=== PATIENT | male | born 1960 | race Caucasian/White ===

== ENCOUNTER 2018-02-04 18:36 | Inpatient (IN) | payer MEDICARE ==
--- NOTE | 2018-02-04 18:45 | ED Physician Chart ---
ED Chief Complaint/HPI - Patient Information Date Seen:: 02/04/18 Time Seen:: 18:44 Chief Complaint:: Agitation and aggressiveness History of Present Illness:: 57 yo male was brought from SNF to ER for evaluation of increased agitation and aggressive behavior. Patient stated that: "I heard Carlos A is good here." Allergies:: Allergies Allergy/AdvReac Type Severity Reaction Status Date / Time lisinopril Allergy Verified 02/04/18 18:41 ED Review of Systems - Review of Systems General/Constitutional: No fever Skin: No skin lesions Head: No headache Eyes: No pain ENT: No nasal drainage Neck: No neck pain Cardio Vascular: No chest pain Pulmonary: No SOB GI: No nausea, No vomiting Musculoskeletal: No bone or joint pain Psychiatric: Prior psych history Neurological: No syncope ED Past Medical History - Past Medical History Past Medical History: DM Social History: Non Smoker, No Alcohol, No Drug Use Psychiatricy History: Other (Psychosis) Family Medical History - Family Member Mother History Unknown: Yes Ethnicity: Unknown Living Status: Unknown Hx Family Cancer: No Hx Family Coronary Artery Disease: No Hx Family Congestive Heart Failure: No Hx Family Hypertension: No Hx Family Stroke: No Hx Family Diabetes: No Hx Family Seizures: No Hx Family Dementia: No Hx Family AIDS: No Hx Family HIV: No Hx Family COPD: No Hx Family Hepatitis: No Hx Family Psychiatric Problems: No Hx Family Tuberculosis: No ED Physical Exam - Physical Examination General/Constitutional: Awake Head: Atraumatic Eyes: PERRL Skin: No skin lesions ENMT: Nasal exam nl Neck: No nuchal rigidity Respiratory: Clear to Auscultation, No Wheeze/Rhonchi/Rales Cardio Vascular: RRR, No murmur, gallop, rubs, NL S1 S2 GI: No tenderness/rebounding/guarding Extremities: normal strength in all extremities Other Neuro/Psych comments:: oriented to self and place ED Labs/Radiology/EKG Results - Lab Results Results: Laboratory Last Values WBC 7.9 Th/cmm (4.8-10.8) 02/04/18 19:02 RBC 4.48 Mil/cmm (4.30-5.70) 02/04/18 19:02 Hgb 13.6 gm/dL (12-16) 02/04/18 19:02 Hct 40.2 % (41.0-60) L 02/04/18 19: MCV 89.7 fl (80-99) 02/04/18 19: MCH 30.2 pg (26.0-30.0) H 02/04/18 19: MCHC Differential 33.7 pg (28.0-36.0) 02/04/18 19: RDW 12.8 % (11.5-20.0) 02/04/18: Plt Count 343 Th/cmm (150-400) 02/04/18 19: MPV 7.2 fl 02/04/18 19: Neutrophils % 49.2 % (40.0-80.0) 02/04/18: Lymphocytes % 40.5 % (20.0-50.0) 02/04/18: Monocytes % 8.0 % (2.0-10.0) 02/04/18: Eosinophils % 1.5 % (0.0-5.0) 02/04/18: Basophils % 0.8 % (0.0-2.0) 02/04/18 19: PT 10.0 SECONDS (9.5-11.5) 02/04/18 19: INR 0.96 (0.5-1.4) 02/04/18 19: PTT (Actin FS) 23.1 SECONDS (26.0-38.0) L 02/04/18 19: Sodium 135 mEq/L (136-145) L 02/04/18 19: Potassium 4.4 mEq/L (3.5-5.1) 02/04/18: Chloride 99 mEq/L (98-107) 02/04/18 19: Carbon Dioxide 29.8 mEq/L (21.0-31.0) 02/04/18 19: Anion Gap 10.6 (7.0-16.0) 02/04/18 19: BUN 18 mg/dL (7-25) 02/04/18 19: Creatinine 0.9 mg/dL (0.7-1.3) 02/04/18 19: Est GFR ( Amer) > 60.0 ml/min (>90) 02/04/18: Est GFR (Non-Af Amer) > 60.0 ml/min 02/04/18 19:02 BUN/Creatinine Ratio 20.0 02/04/18 19:02 Glucose 294 mg/dL (70-105) H 02/04/18 19:02 Calcium 9.6 mg/dL (8.6-10.3) 02/04/18 19:02 Magnesium 1.7 mg/dL (1.9-2.7) L 02/04/18 19:02 Total Bilirubin 0.4 mg/dL (0.3-1.0) 02/04/18 19:02 AST 9 U/L (13-39) L 02/04/18 19:02 ALT 10 U/L (7-52) 02/04/18 19:02 Alkaline Phosphatase 61 U/L (34-104) 02/04/18 19:02 Troponin I < 0.01 ng/mL (0.01-0.05) L 02/04/18 19:02 B-Natriuretic Peptide < 5.0 pg/mL (5.0-100.0) L 02/04/18 19:02 Total Protein 6.8 gm/dL (6.0-8.3) 02/04/18 19:02 Albumin 4.4 gm/dL (4.2-5.5) 02/04/18 19:02 Globulin 2.4 gm/dL 02/04/18 19:02 Albumin/Globulin Ratio 1.8 (1.0-1.8) 02/04/18 19:02 Urine Source RANDOM 02/05/18 00:00 Urine Color YELLOW 02/05/18 00:00 Urine Clarity CLEAR (CLEAR) 02/05/18 00:00 Urine pH 5.5 (4.6 - 8.0) 02/05/18 00:00 Ur Specific [place] 1.020 (1.005-1.030) 02/05/18 00:00 Urine Protein TRACE mg/dL (NEGATIVE) 02/05/18 00:00 Urine Glucose (UA) >=1000 mg/dL (NEGATIVE) H 02/05/18 00:00 Urine Ketones NEGATIVE mg/dL (NEGATIVE) 02/05/18 00:00 Urine Blood NEGATIVE (NEGATIVE) 02/05/18 00:00 Urine Nitrate NEGATIVE (NEGATIVE) 02/05/18 00:00 Urine Bilirubin NEGATIVE (NEGATIVE) 02/05/18 00:00 Urine Urobilinogen 0.2 E.U./dL (0.2 - 1.0) 02/05/18 00:00 Ur Leukocyte Esterase NEGATIVE (NEGATIVE) 02/05/18 00:00 Urine RBC NONE SEEN /hpf (0-5) 02/05/18 00:00 Urine WBC NONE SEEN /hpf (0-5) 02/05/18 00:00 Ur Epithelial Cells NONE SEEN /lpf (FEW) 02/05/18 00:00 Urine Bacteria NONE SEEN /hpf (NONE SEEN) 02/05/18 00:00 - Radiology Results Results: CXR: chronic lung changes without focal consolidation - EKG Interpretations EKG Time:: 19:08 Rate & Rhythm: 85 bpm sinus rhythm [place]: normal Intervals: normal ED Assessment - Assessment General Assessment: DM II Hyponatremia Psychosis Assessment/Comments:: CBC, CMP, Trop I, BNP, UA CXR, EKG Admit to [facility] Septic Shock - . Is Septic Shock (SBP<90, OR Lactate>4 mmol\\L) present?: No ED Reassessment (Disposition) - Reassessment Reassessment Condition:: Unchanged - Patient Disposition Discharge/Transfer:: [facility] w/in this hosp Admitting Medical Physician:: Josey Dunbar Admitting Psych Physician:: Emre Brar ED Discharge Plan - Patient Disposition Admit/Discharge/Transfer: Other Care w/in this hosp
[2018-02-04 19:15] LABS: % BASOPHILS 0.8 % (0.0-2.0); % EOSINOPHILS 1.5 % (0.0-5.0); % LYMPHOCYTES 40.5 % (20.0-50.0); % NEUTROPHILS 49.2 % (40.0-80.0); BASOPHILE ABSOLUTE 0.1 Th/cumm (0-0.2); EOSINOPHILE ABSOLUTE 0.1 Th/cmm (0.1-0.4); HEMATOCRIT 40.2 % (41.0-60); HEMOGLOBIN 13.6 gm/dL (12-16); LYMPHOCYTE ABSOLUTE 3.2 Th/cmm (1.5-3.0); MEAN CELL VOLUME 89.7 fl (80-99); MEAN CORPUSCULAR HEMOGLOBIN 30.2 pg (26.0-30.0); MEAN CORPUSCULAR HGB CONC 33.7 pg (28.0-36.0); MEAN PLATELET VOLUME 7.2 fl; MONOCYTE ABSOLUTE 0.6 Th/cmm (0.3-1.0); NEUTROPHILE ABSOLUTE 3.9 Th/cmm (1.8-8.0); PLATELET COUNT 343 Th/cmm (150-400); RED BLOOD COUNT 4.48 Mil/cmm (4.30-5.70); RED CELL DISTRIBUTION WIDTH 12.8 % (11.5-20.0); WHITE BLOOD COUNT 7.9 Th/cmm (4.8-10.8)
[2018-02-04 19:23] LABS: INR 0.96 (0.5-1.4)
[2018-02-04 19:25] LABS: ALB/GLOB RATIO 1.8 (1.0-1.8); ALBUMIN 4.4 gm/dL (4.2-5.5); ALKALINE PHOSPHATASE 61 U/L (34-104); ANION GAP 10.6 (7.0-16.0); BILIRUBIN,TOTAL 0.4 mg/dL (0.3-1.0); BUN - UREA NITROGEN 18 mg/dL (7-25); CALCIUM SERUM 9.6 mg/dL (8.6-10.3); CARBON DIOXIDE 29.8 mEq/L (21.0-31.0); CHLORIDE 99 mEq/L (98-107); CREATININE - SERUM 0.9 mg/dL (0.7-1.3); GFR AFRICAN-AMERICAN > 60.0 ml/min (>90); GFR NON AFRICAN-AMERICAN > 60.0 ml/min; GLUCOSE 294 mg/dL (70-105); MAGNESIUM 1.7 mg/dL (1.9-2.7); POTASSIUM SERUM 4.4 mEq/L (3.5-5.1); SGOT 9 U/L (13-39); SGPT/ALT 10 U/L (7-52); SODIUM SERUM 135 mEq/L (136-145); TOTAL PROTEIN,SERUM 6.8 gm/dL (6.0-8.3)
[2018-02-05 00:25] VITALS: BP 128/77
[2018-02-05 00:55] LABS: URINE MICROSCOPIC INDICATED? YES; URINE SOURCE RANDOM
[2018-02-05 00:57] LABS: URINE BILIRUBIN NEGATIVE (NEGATIVE); URINE BLOOD NEGATIVE (NEGATIVE); URINE GLUCOSE (UA) >=1000 mg/dL (NEGATIVE); URINE KETONE NEGATIVE (NEGATIVE); URINE LEUKOCYTE ESTERASE NEGATIVE (NEGATIVE); URINE NITRATE NEGATIVE (NEGATIVE); URINE PH 5.5 (4.6 - 8.0); URINE PROTEIN TRACE mg/dL (NEGATIVE); URINE UROBILINOGEN 0.2 E.U./dL (0.2 - 1.0)
[2018-02-05 00:58] LABS: URINE BACTERIA NONE SEEN /hpf (NONE SEEN); URINE CLARITY CLEAR (CLEAR); URINE COLOR YELLOW; URINE EPITHELIAL CELLS NONE SEEN /lpf (FEW); URINE RBC NONE SEEN /hpf (0-5); URINE WBC NONE SEEN /hpf (0-5)
[2018-02-05] MEDS ORDERED: Dextrose 50% 50 mL Abboject IVP PRN (05:09)
[2018-02-05] MEDS: INSULIN ASPART SLIDING SCALE 100 UNITS/ML UNIT SUBQ SCH ×4 (06:42→21:19)
--- NOTE | 2018-02-05 09:13 | Diagnostic Imaging Report ---
CHEST X-RAY: AP view INDICATION: Shortness of breath COMPARISON: None FINDINGS: Chronic lung changes are noted. Faint left basal density is noted measuring 7 mm. This is adjacent to the eighth posterior rib. No focal consolidation or effusion. Heart size is normal. Degenerative changes of the spine are noted. IMPRESSION: Chronic lung changes with no focal consolidation identified. Faint 7 mm left basal density. This is indeterminate. Faint infiltrate or a pulmonary nodule cannot be excluded. Correlation with old exams would be helpful for comparison. Alternatively, follow CT chest is recommended.
[2018-02-05] MEDS: Aspirin 81mg Chewable Tab PO SCH (09:41)
[2018-02-05] MEDS: Multivitamin w/ Minerals Tab PO SCH (09:42)
--- NOTE | 2018-02-05 14:47 | History & Physical ---
ADMIT DATE: 02/05/2018 CHIEF COMPLAINT: Agitation and aggressive behavior. HISTORY OF PRESENT ILLNESS: This is a 57-year-old male who was admitted from a [facility] facility and was transferred to [facility] due to increase in agitation and aggressive behavior. REVIEW OF SYSTEMS: GENERAL: This is a 57-year-old male that appears as stated, no fever, no chills. HEENT: No headache. No dizziness. EYES: No eye pain, no blurring of vision. NECK: No neck pain, no nuchal rigidity. CHEST: No chest pain. No palpitation. PULMONARY: No coughing. No shortness of breath. GASTROINTESTINAL: No diarrhea, no obstipation, no abdominal pain. MUSCULOSKELETAL: No muscle pain, no joint pain. SOCIAL HISTORY: The patient lives in a [facility] facility prior to hospitalization. PAST SURGICAL HISTORY: Unremarkable. FAMILY HISTORY: Unremarkable. PAST MEDICAL HISTORY: Includes diabetes, vitamin D deficiency, hyperlipidemia. PHYSICAL EXAMINATION: VITAL SIGNS: Temperature 97, heart rate of 89, blood pressure 146/86, respirations 17, 97% on room air. HEENT: Head is atraumatic, normocephalic. Eyes: Bilateral conjunctivae are clear. Bilateral pupils are equally round and reactive. NECK: Supple. No JVD. CARDIOVASCULAR: S1 and S2 without murmur. PULMONARY: Clear to auscultation. GASTROINTESTINAL: Soft and nontender without guarding. Positive bowel sounds. MUSCULOSKELETAL: No clubbing. No cyanosis noted. Radiology report showed a 7 mm left basal density, otherwise no focal consolidation or no changes noted. ASSESSMENT: 1. Psychosis. 2. Diabetes. 3. Vitamin D deficiency. 4. Osteoarthritis. PLAN: We will admit the [facility]. We will follow up with psychiatrist to monitor the patient's condition and behavior. We will do medication reconciliation accordingly. We will also going to do follow up the chest x-ray with a CT scan of the chest. Treatment plans were discussed with the patient's nurse. Treatment plans were discussed with Dr. Dunbar. JOB# [id number]
[2018-02-05 21:27] LABS: A1C % 7.3 % (4.0-6.0)
--- NOTE | 2018-02-05 21:46 | Psychiatric Evaluation ---
DATE OF SERVICE: 02/04/2018 PSYCHIATRIC EVALUATION IDENTIFYING DATA: The patient is a 57-year-old male, resident of [facility]. Information obtained by directly interviewing the patient as well as reviewing the admission papers. JUSTIFICATION FOR HOSPITALIZATION: The patient is admitted here for depression and disruptive behavior. Chart is reviewed. The patient is interviewed and the patient during the interview has been mentioning that he has been treated at the [facility] in [place]. As per the penitentiary's report, the patient is reported to be disruptive, and aggressive and wanted to go back to his girlfriend in [place]. The patient has been stating that his principal investigator is in [place], [place] and he stated that he needs to talk to her first. The patient during the interview has been noted to be extremely depressed with a flat affect. Sleep is noted to be poor. Appetite is noted to be fair. The patient is stating that because of his diabetes, he is not able to ambulate. The patient is stating that he is not able to tolerate the noise from the other patients on the unit and wants to be given a special room for himself. PAST PSYCHIATRIC HISTORY: Details are not known. MEDICAL HISTORY AND PHYSICAL EXAMINATION: Requested to be done by Dr. Dunbar. SUBSTANCE ABUSE HISTORY: None. PHYSICAL OR SEXUAL ABUSE HISTORY: None. LEGAL PROBLEMS: None at this time. MENTAL STATUS EXAMINATION: The patient is a 57-year-old, looking his stated age, superficially cooperative. Eye contact is poor. Mood is noted to be depressed. Affect is constricted. The patient's insight and judgment at this time are noted to be fair. Impulse control seems to be limited as per the report from the penitentiary. The patient is alert and awake and he knows that he is in the hospital. The patient is asking me to contact his girlfriend. The patient is not presenting with any paranoid delusions. The patient has been having difficult time to cope with the stress. DIAGNOSTIC IMPRESSION: AXIS I: Depressive disorder, not otherwise specified. IB. Rule out psychosis. AXIS II: None. AXIS III: As per Dr. Dunbar. IMMEDIATE TREATMENT PLAN: The patient is going to be observed on inpatient unit, provided with supportive psychotherapy. The patient is being currently medically worked up for a possible mass and once the patient is medically stabilized, the Psychiatric treatment possibly with an antidepressant is going to be contemplated. JOB# [id number]
[2018-02-06] MEDS: INSULIN ASPART SLIDING SCALE 100 UNITS/ML UNIT SUBQ SCH ×4 (06:39→20:55)
--- NOTE | 2018-02-06 08:17 | Diagnostic Imaging Report ---
CT Chest without IV contrast HISTORY: Nodule COMPARISON: Chest x-ray the on 02/04/2014 Technique: Axial images were obtained from the base of the neck to the upper abdomen without IV contrast. Reconstructions were made. Total DLP 235, CTDI 6.1 Findings: Evaluation of the mediastinum is limited due to lack of IV contrast. No evidence of mediastinal lymphadenopathy. Heart size is normal. Mild atherosclerosis is noted including coronary artery calcifications. No evidence of aortic aneurysm. No pericardial effusion. Evaluation of the lungs demonstrates a 1.2 cm left lower lobe nodule. This is indeterminate. Minimal surrounding linear densities are noted which may atelectatic changes. No focal consolidation or effusions. The upper abdomen demonstrates nonspecific bilateral perinephric inflammatory changes. Degenerative changes of the spine are noted. IMPRESSION: 1.2 cm left lower lobe nodule. This corresponds to faint density seen on recent chest x-ray. Correlation with old exams to be helpful if available. Neoplastic etiology cannot be excluded and further assessment with PET/CT examination is recommended. No focal consolidation or effusions Mild atherosclerosis including coronary artery calcifications.
[2018-02-06] MEDS: Aspirin 81mg Chewable Tab PO SCH (08:50)
[2018-02-06] MEDS: Multivitamin w/ Minerals Tab PO SCH (08:51)
--- NOTE | 2018-02-06 13:47 | General Progress Note ---
Subjective - Review of Systems Events since last encounter: patient awake in no distres feeling depressed denies pain Objective - Results Result Diagrams: 02/04/18 19:02 02/04/18 19: Recent Labs: Laboratory Last Values WBC 7.9 Th/cmm (4.8-10.8) 02/04/18 19: RBC 4.48 Mil/cmm (4.30-5.70) 02/04/18 19:02 Hgb 13.6 gm/dL (12-16) 02/04/18 19:02 Hct 40.2 % (41.0-60) L 02/04/18 19:02 MCV 89.7 fl (80-99) 02/04/18 19: MCH 30.2 pg (26.0-30.0) H 02/04/18: MCHC Differential 33.7 pg (28.0-36.0) 02/04/18 19:02 RDW 12.8 % (11.5-20.0) 02/04/18 19: Plt Count 343 Th/cmm (150-400) 02/04/18 19:02 MPV 7.2 fl 02/04/18 19:02 Neutrophils % 49.2 % (40.0-80.0) 02/04/18 19: Lymphocytes % 40.5 % (20.0-50.0) 02/04/18 19: Monocytes % 8.0 % (2.0-10.0) 02/04/18 19: Eosinophils % 1.5 % (0.0-5.0) 02/04/18 19: Basophils % 0.8 % (0.0-2.0) 02/04/18 19:02 PT 10.0 SECONDS (9.5-11.5) 02/04/18 19:02 INR 0.96 (0.5-1.4) 02/04/18 19:02 PTT (Actin FS) 23.1 SECONDS (26.0-38.0) L 02/04/18 19:02 Sodium 135 mEq/L (136-145) L 02/04/18 19:02 Potassium 4.4 mEq/L (3.5-5.1) 02/04/18 19:02 Chloride 99 mEq/L (98-107) 02/04/18 19:02 Carbon Dioxide 29.8 mEq/L (21.0-31.0) 02/04/18 19:02 Anion Gap 10.6 (7.0-16.0) 02/04/18 19:02 BUN 18 mg/dL (7-25) 02/04/18 19:02 Creatinine 0.9 mg/dL (0.7-1.3) 02/04/18 19:02 Est GFR ( Amer) > 60.0 ml/min (>90) 02/04/18 19:02 Est GFR (Non-Af Amer) > 60.0 ml/min 02/04/18 19:02 BUN/Creatinine Ratio 20.0 02/04/18 19:02 Glucose 294 mg/dL (70-105) H 02/04/18 19:02 POC Glucose 161 MG/DL (70 - 105) H 02/06/18 06:16 Hemoglobin A1c % 7.3 % (4.0-6.0) H 02/04/18 19:02 Calcium 9.6 mg/dL (8.6-10.3) 02/04/18 19:02 Magnesium 1.7 mg/dL (1.9-2.7) L 02/04/18 19:02 Total Bilirubin 0.4 mg/dL (0.3-1.0) 02/04/18 19:02 AST 9 U/L (13-39) L 02/04/18 19:02 ALT 10 U/L (7-52) 02/04/18 19:02 Alkaline Phosphatase 61 U/L (34-104) 02/04/18 19:02 Troponin I < 0.01 ng/mL (0.01-0.05) L 02/04/18 19:02 B-Natriuretic Peptide < 5.0 pg/mL (5.0-100.0) L 02/04/18 19:02 Total Protein 6.8 gm/dL (6.0-8.3) 02/04/18 19:02 Albumin 4.4 gm/dL (4.2-5.5) 02/04/18 19:02 Globulin 2.4 gm/dL 02/04/18 19:02 Albumin/Globulin Ratio 1.8 (1.0-1.8) 02/04/18 19:02 Urine Source RANDOM 02/05/18 00:00 Urine Color YELLOW 02/05/18 00:00 Urine Clarity CLEAR (CLEAR) 02/05/18 00:00 Urine pH 5.5 (4.6 - 8.0) 02/05/18 00:00 Ur Specific [place] 1.020 (1.005-1.030) 02/05/18 00:00 Urine Protein TRACE mg/dL (NEGATIVE) 02/05/18 00:00 Urine Glucose (UA) >=1000 mg/dL (NEGATIVE) H 02/05/18 00:00 Urine Ketones NEGATIVE mg/dL (NEGATIVE) 02/05/18 00:00 Urine Blood NEGATIVE (NEGATIVE) 02/05/18 00:00 Urine Nitrate NEGATIVE (NEGATIVE) 02/05/18 00:00 Urine Bilirubin NEGATIVE (NEGATIVE) 02/05/18 00:00 Urine Urobilinogen 0.2 E.U./dL (0.2 - 1.0) 02/05/18 00:00 Ur Leukocyte Esterase NEGATIVE (NEGATIVE) 02/05/18 00:00 Urine RBC NONE SEEN /hpf (0-5) 02/05/18 00:00 Urine WBC NONE SEEN /hpf (0-5) 02/05/18 00:00 Ur Epithelial Cells NONE SEEN /lpf (FEW) 02/05/18 00:00 Urine Bacteria NONE SEEN /hpf (NONE SEEN) 02/05/18 00:00 - Physical Exam Vitals and I&O: Vital Signs Temp 98.2 F 02/06/18 04:49 Pulse 88 02/06/18 04:49 Resp 19 02/06/18 04:49 BP 148/84 02/06/18 04:49 Pulse Ox 96 02/06/18 04:49 Intake & Output 02/05/18 02/06/18 02/06/18 18:59 06:59 18:59 Intake Total 480 Balance 480 Intake: Oral 480 Other: # Voids 2 Active Medications: Current Medications Ascorbic Acid (Vitamin C) 500 mg PO BID [facility] Stop: 04/06/18 08:59 Last Admin: 02/06/18 08:50 Dose: 500 mg Aspirin (Aspirin Chewable) 81 mg PO DAILY [facility] Stop: 04/06/18 08:59 Last Admin: 02/06/18 08:50 Dose: 81 mg Calcium Carbonate (Os-Colten) 500 mg PO DAILY [facility] Stop: 04/06/18 08:59 Last Admin: 02/06/18 08:50 Dose: 500 mg Cholecalciferol (Vitamin D3) 2,000 iu PO DAILY [facility] Stop: 04/06/18 08:59 Last Admin: 02/06/18 08:50 Dose: 2,000 iu Dextrose (D50w) 50 ml IVP PRN PRN; Protocol PRN Reason: HYPOGLYCEMIA Stop: 04/06/18 05:08 Insulin Aspart (Novolog Insulin Sliding Scale) 0 units SUBQ ACHS RAVIN; Protocol Stop: 04/06/18 07:29 Last Admin: 02/06/18 11:33 Dose: 4 units Lorazepam (Ativan) 0.5 mg PO Q6HR PRN; Protocol PRN Reason: Agitation Stop: 04/06/18 02:52 Metformin HCl (Glucophage) 500 mg PO BID [facility] Stop: 04/06/18 08:59 Last Admin: 02/06/18 08:51 Dose: 500 mg Quetiapine Fumarate (Seroquel) 12.5 mg PO HS RAVIN; Protocol Stop: 04/06/18 20:59 Last Admin: 02/05/18 21:20 Dose: 12.5 mg Simvastatin (Zocor) 10 mg PO HS RAVIN; Protocol Stop: 04/06/18 20:59 Last Admin: 02/05/18 21:20 Dose: 10 mg Zolpidem Tartrate (Ambien) 5 mg PO HS PRN PRN Reason: Insomnia Stop: 04/06/18 02:49 Last Admin: 02/05/18 21:20 Dose: 5 mg General: No acute distress HEENT: Atraumatic Neck: Supple Cardiovascular: Regular rate, Normal S1, Normal S2 Lungs: Clear to auscultation Assessment/Plan - Problem List Patient Problems: All Active Problems INCREASED AGGRESSION WITH DISRUPTION (Acute) - Plan Plan: as per psych will monitor Nutritional Asmnt/Malnutr-PDOC - Dietary Evaluation Malnutrition Findings (Please click <Entered> for more info): Nutritional Asmnt/Malnutrition Start: 02/05/18 11: 37 Text: Status: Complete Freq: Protocol: Document 02/05/18 11:37 GLORIA (Rec: 02/05/18 11:52 GLORIA HASSAN- [email or web address]) Nutritional Asmnt/Malnutrition Patient General Information Nutritional Screening High Risk Diagnosis aggressive behavior, psychosis Pertinent Medical Hx/Surgical Hx intellectual disabilities, depression, anxiety, psychosis Subjective Information Patient seen as high risk due to glucose on admission >180. Per nursing notes, lower extremity 2+ non pitting edema . Per nurse, patient is not eating his meals and wants " something he can recognize" to eat. Diet education not appropriate at this time. Current Diet Order/ Nutrition Support 60 gm CCHO Patient / S.O Not Indicated Pertinent Medications vitamin C, OS-colten, vitamin D, D50W @ 50 ml/hr, Novolog, Glucophage Pertinent Labs (02/04) Na 135, GLucose 294, mg 1.7 Nutritional Hx/Data Height 1.73 m Height (Calculated Centimeters) 172.7 Current Weight (lbs) 77.111 kg Weight (Calculated Kilograms) 77.1 Weight (Calculated Grams) 84429.7 [place] Body Weight 154 % [place] Body Weight 110 Body Mass Index (BMI) 25.8 Recent Weight Change No Weight Status Overweight GI Symptoms GI Symptoms None Last BM prior to admission Difficult in: None Food Allergies No Cultural/Ethnic/[place] Belief None indicated Usual diet at home unknown Skin Integrity/Comment: Kevin 20 Estimated Nutritional Goals BEE in Kcals: Using Current wt Calories/Kcals/Kg 25-30 kcal/kg using CBW 77.2kg Kcals Calculated 9607-3617 kcal/day Protein: Using Current wt Protein g/k.8-1 gm/kg Protein Calculated 60-75 gm/day Fluid: ml 8650-6615 ml/day (1 ml/kcal) Nutritional Problem 1. Problem Problem Altered nutrition related lab values related to Etiology uncontrolled hyperglycemia aeb Signs/Symptoms: glucose 294 on admission Intervention/Recommendation Comments 1. Continue 60 gm CCHO diet as tolerated. Patient to fill out menu the day before to choose his meal preferences. 2. Will attempt DM Diet education at follow up. 3. MD to modify insulin regimen as needed for optimal glycemic control. Expected Outcomes/Goals Expected Outcomes/Goals oral intake >75% Of meals, weight stable or trend toward IBW, glucose/nutrition related labs jerry. F/U As MR 02/08-
--- NOTE | 2018-02-06 21:17 | Progress Notes ---
DATE: 02/06/2018 SUBJECTIVE: Staff was spoken to. The patient is interviewed. Mood is noted to be depressed. Affect is constricted. The patient is finding it difficult to adjust to the unit. Insight and judgment at this time are noted to be still impaired. Impulse control seems to be improving. The patient is not presenting with any aggressive behavior. The patient is stating that he is waiting for the caregiver to give him a call or come and visit him today. ASSESSMENT: The patient is depressed. PLAN: To continue the patient with the supportive therapy. I encouraged the patient to verbalize the concerns rather than to act out. JOB# [id number]
[2018-02-07] MEDS: INSULIN ASPART SLIDING SCALE 100 UNITS/ML UNIT SUBQ SCH ×4 (06:50→20:44)
[2018-02-07] MEDS: Aspirin 81mg Chewable Tab PO SCH (10:35)
[2018-02-07] MEDS: Multivitamin w/ Minerals Tab PO SCH (10:36)
--- NOTE | 2018-02-07 16:12 | General Progress Note ---
Subjective - Review of Systems Events since last encounter: depressive mood denies pain Objective - Results Result Diagrams: 02/04/18 19:02 02/04/18 19:02 Recent Labs: Laboratory Last Values WBC 7.9 Th/cmm (4.8-10.8) 02/04/18 19: RBC 4.48 Mil/cmm (4.30-5.70) 02/04/18 19: Hgb 13.6 gm/dL (12-16) 02/04/18 19: Hct 40.2 % (41.0-60) L 02/04/18 19: MCV 89.7 fl (80-99) 02/04/18 19: MCH 30.2 pg (26.0-30.0) H 02/04/18 19: MCHC Differential 33.7 pg (28.0-36.0) 02/04/18 19: RDW 12.8 % (11.5-20.0) 02/04/18 19: Plt Count 343 Th/cmm (150-400) 02/04/18 19:02 MPV 7.2 fl 02/04/18 19:02 Neutrophils % 49.2 % (40.0-80.0) 02/04/18 19: Lymphocytes % 40.5 % (20.0-50.0) 02/04/18 19: Monocytes % 8.0 % (2.0-10.0) 02/04/18 19: Eosinophils % 1.5 % (0.0-5.0) 02/04/18 19: Basophils % 0.8 % (0.0-2.0) 02/04/18 19:02 PT 10.0 SECONDS (9.5-11.5) 02/04/18 19:02 INR 0.96 (0.5-1.4) 02/04/18 19:02 PTT (Actin FS) 23.1 SECONDS (26.0-38.0) L 02/04/18 19:02 Sodium 135 mEq/L (136-145) L 02/04/18 19:02 Potassium 4.4 mEq/L (3.5-5.1) 02/04/18 19:02 Chloride 99 mEq/L (98-107) 02/04/18 19:02 Carbon Dioxide 29.8 mEq/L (21.0-31.0) 02/04/18 19:02 Anion Gap 10.6 (7.0-16.0) 02/04/18 19:02 BUN 18 mg/dL (7-25) 02/04/18 19:02 Creatinine 0.9 mg/dL (0.7-1.3) 02/04/18 19:02 Est GFR ( Amer) > 60.0 ml/min (>90) 02/04/18 19:02 Est GFR (Non-Af Amer) > 60.0 ml/min 02/04/18 19:02 BUN/Creatinine Ratio 20.0 02/04/18 19:02 Glucose 294 mg/dL (70-105) H 02/04/18 19:02 POC Glucose 204 MG/DL (70 - 105) H 02/07/18 11:45 Hemoglobin A1c % 7.3 % (4.0-6.0) H 02/04/18 19:02 Calcium 9.6 mg/dL (8.6-10.3) 02/04/18 19:02 Magnesium 1.7 mg/dL (1.9-2.7) L 02/04/18 19:02 Total Bilirubin 0.4 mg/dL (0.3-1.0) 02/04/18 19:02 AST 9 U/L (13-39) L 02/04/18 19:02 ALT 10 U/L (7-52) 02/04/18 19:02 Alkaline Phosphatase 61 U/L (34-104) 02/04/18 19:02 Troponin I < 0.01 ng/mL (0.01-0.05) L 02/04/18 19:02 B-Natriuretic Peptide < 5.0 pg/mL (5.0-100.0) L 02/04/18 19:02 Total Protein 6.8 gm/dL (6.0-8.3) 02/04/18 19:02 Albumin 4.4 gm/dL (4.2-5.5) 02/04/18 19:02 Globulin 2.4 gm/dL 02/04/18 19:02 Albumin/Globulin Ratio 1.8 (1.0-1.8) 02/04/18 19:02 Urine Source RANDOM 02/05/18 00:00 Urine Color YELLOW 07/14/18 00:00 Urine Clarity CLEAR (CLEAR) 02/05/18 00:00 Urine pH 5.5 (4.6 - 8.0) 02/05/18 00:00 Ur Specific [place] 1.020 (1.005-1.030) 02/05/18 00:00 Urine Protein TRACE mg/dL (NEGATIVE) 02/05/18 00:00 Urine Glucose (UA) >=1000 mg/dL (NEGATIVE) H 02/05/18 00:00 Urine Ketones NEGATIVE mg/dL (NEGATIVE) 02/05/18 00:00 Urine Blood NEGATIVE (NEGATIVE) 02/05/18 00:00 Urine Nitrate NEGATIVE (NEGATIVE) 02/05/18 00:00 Urine Bilirubin NEGATIVE (NEGATIVE) 02/05/18 00:00 Urine Urobilinogen 0.2 E.U./dL (0.2 - 1.0) 02/05/18 00:00 Ur Leukocyte Esterase NEGATIVE (NEGATIVE) 02/05/18 00:00 Urine RBC NONE SEEN /hpf (0-5) 02/05/18 00:00 Urine WBC NONE SEEN /hpf (0-5) 02/05/18 00:00 Ur Epithelial Cells NONE SEEN /lpf (FEW) 02/05/18 00:00 Urine Bacteria NONE SEEN /hpf (NONE SEEN) 02/05/18 00:00 - Physical Exam Vitals and I&O: Vital Signs Temp 98.2 F 02/07/18 15:38 Pulse 92 02/07/18 15:38 Resp 20 02/07/18 15:38 BP 108/76 02/07/18 15:38 Pulse Ox 97 02/07/18 15:38 Intake & Output 02/06/18 02/07/18 02/07/18 18:59 06:59 18:59 Intake Total 1500 240 Balance 1500 240 Intake: Oral 1500 240 Other: # Voids 3 2 # Bowel Movements 0 Active Medications: Current Medications Ascorbic Acid (Vitamin C) 500 mg PO BID [facility] Stop: 04/06/18 08:59 Last Admin: 02/07/18 10:35 Dose: Not Given Aspirin (Aspirin Chewable) 81 mg PO DAILY [facility]IN Stop: 04/06/18 08:59 Last Admin: 02/07/18 10:35 Dose: Not Given Calcium Carbonate (Os-Colten) 500 mg PO DAILY [facility] Stop: 04/06/18 08:59 Last Admin: 02/07/18 10:35 Dose: Not Given Cholecalciferol (Vitamin D3) 2,000 iu PO DAILY [facility] Stop: 04/06/18 08:59 Last Admin: 02/07/18 10:35 Dose: Not Given Dextrose (D50w) 50 ml IVP PRN PRN; Protocol PRN Reason: HYPOGLYCEMIA Stop: 04/06/18 05:08 Insulin Aspart (Novolog Insulin Sliding Scale) 0 units SUBQ ACHS RAVIN; Protocol Stop: 04/06/18 07:29 Last Admin: 02/07/18 11:59 Dose: 4 units Lorazepam (Ativan) 0.5 mg PO Q6HR PRN; Protocol PRN Reason: Agitation Stop: 04/06/18 02:52 Last Admin: 02/06/18 23:45 Dose: 0.5 mg Metformin HCl (Glucophage) 500 mg PO BID [facility] Stop: 04/06/18 08:59 Last Admin: 02/07/18 10:36 Dose: Not Given Quetiapine Fumarate (Seroquel) 12.5 mg PO HS [facility]IN; Protocol Stop: 04/06/18 20:59 Last Admin: 02/06/18 20:56 Dose: 12.5 mg Simvastatin (Zocor) 10 mg PO HS RAVIN; Protocol Stop: 04/06/18 20:59 Last Admin: 02/06/18 20:57 Dose: 10 mg Zolpidem Tartrate (Ambien) 5 mg PO HS PRN PRN Reason: Insomnia Stop: 04/06/18 02:49 Last Admin: 02/06/18 20:57 Dose: 5 mg General: No acute distress HEENT: Atraumatic Neck: Supple Cardiovascular: Regular rate, Normal S1, Normal S2 Lungs: Clear to auscultation Assessment/Plan - Problem List Patient Problems: All Active Problems INCREASED AGGRESSION WITH DISRUPTION (Acute) - Plan Plan: as per psych will monitor Nutritional Asmnt/Malnutr-PDOC - Dietary Evaluation Malnutrition Findings (Please click <Entered> for more info): Nutritional Asmnt/Malnutrition Start: 02/05/18 11: 37 Text: Status: Complete Freq: Protocol: Document 02/05/18 11:37 GLORIA (Rec: 02/05/18 11:52 GLORIA HASSAN- [email or web address]) Nutritional Asmnt/Malnutrition Patient General Information Nutritional Screening High Risk Diagnosis aggressive behavior, psychosis Pertinent Medical Hx/Surgical Hx intellectual disabilities, depression, anxiety, psychosis Subjective Information Patient seen as high risk due to glucose on admission >180. Per nursing notes, lower extremity 2+ non pitting edema . Per nurse, patient is not eating his meals and wants " something he can recognize" to eat. Diet education not appropriate at this time. Current Diet Order/ Nutrition Support 60 gm CCHO Patient / S.O Not Indicated Pertinent Medications vitamin C, OS-colten, vitamin D, D50W @ 50 ml/hr, Novolog, Glucophage Pertinent Labs (02/04) Na 135, GLucose 294, mg 1.7 Nutritional Hx/Data Height 1.73 m Height (Calculated Centimeters) 172.7 Current Weight (lbs) 77.111 kg Weight (Calculated Kilograms) 77.1 Weight (Calculated Grams) 58490.7 [place] Body Weight 154 % [place] Body Weight 110 Body Mass Index (BMI) 25.8 Recent Weight Change No Weight Status Overweight GI Symptoms GI Symptoms None Last BM prior to admission Difficult in: None Food Allergies No Cultural/Ethnic/Latter-Day Belief None indicated Usual diet at home unknown Skin Integrity/Comment: Kevin 20 Estimated Nutritional Goals BEE in Kcals: Using Current wt Calories/Kcals/Kg 25-30 kcal/kg using CBW 77.2kg Kcals Calculated 0651-8408 kcal/day Protein: Using Current wt Protein g/k.8-1 gm/kg Protein Calculated 60-75 gm/day Fluid: ml 0106-7348 ml/day (1 ml/kcal) Nutritional Problem 1. Problem Problem Altered nutrition related lab values related to Etiology uncontrolled hyperglycemia aeb Signs/Symptoms: glucose 294 on admission Intervention/Recommendation Comments 1. Continue 60 gm CCHO diet as tolerated. Patient to fill out menu the day before to choose his meal preferences. 2. Will attempt DM Diet education at follow up. 3. MD to modify insulin regimen as needed for optimal glycemic control. Expected Outcomes/Goals Expected Outcomes/Goals oral intake >75% Of meals, weight stable or trend toward IBW, glucose/nutrition related labs [place]. F/U As MR 02/08-
--- NOTE | 2018-02-07 22:40 | Progress Notes ---
DATE: 02/07/2018 PSYCHIATRIC PROGRESS NOTE SUBJECTIVE: Staff was spoken to. The patient is interviewed. Mood is noted to be irritable. Affect is constricted. The patient is stating that he has been waiting for the friend that was supposed to be coming from [place]. The patient is still depressed, but denies any command hallucinations. Coping skills are noted to be very poor. The patient is not able to care for self. ASSESSMENT: The patient is still depressed. PLAN: To continue the patient with the supportive therapy. Encouraged the patient to verbalize the concerns rather than act out. JOB# [id number]
--- NOTE | 2018-02-07 23:59 | Consultation ---
DATE OF CONSULTATION: 02/07/[address] Dunbar. Thank you very much Dr. Dunbar for this consultation. HISTORY OF PRESENT ILLNESS: This is a 57-year-old male with history of some psychiatric problems in [facility] for agitation and aggressive behavior. The patient did have a chest x-ray, which was found to have some possible nodule in the left lower lobe area were called for further evaluation. The patient denies any shortness of breath, no chest pain, no fever. No history of lung problems in the past. SOCIAL HISTORY: Denies any smoking, drinking, or drug use. jail resident. OTHER PAST MEDICAL HISTORY: Diabetes, dyslipidemia. REVIEW OF SYSTEMS: GENERAL: Weakness, fatigue. CARDIOVASCULAR: No chest pain. There is no palpitation. RESPIRATORY: No shortness of breath. GASTROINTESTINAL: No nausea or vomiting. PHYSICAL EXAMINATION: GENERAL: Awake, alert, not in acute distress. VITAL SIGNS: Temperature is 97.1, pulse 91, respiration is 20, blood pressure 102/55, saturation 94%-97%. HEENT: Atraumatic, normocephalic. Pupils equal and reactive to light and accommodation. Ears, nose and throat normal. NECK: Supple. No JVD. CHEST: There are good breath sounds bilaterally. No wheezing or crackles. HEART: Regular rhythm. ABDOMEN: Soft, nontender. EXTREMITIES: No edema. LABORATORY DATA: WBC 7.9, hemoglobin 13.6, platelets at 343. Sodium is 135, potassium is 4.4, creatinine is 0.9. CT of the chest done showed a lung nodule left lower lobe area well since demarcated. PLAN: Suggest a PET scan as an outpatient. needs to have this nodule removed and also a CT-guided biopsy might be considered very easy access to the nodule is doing by Radiology. No others older studies to compare to especially and the risk factors are not very clear at this point. Thank you very much for following the patient with you. JOB# [id number]
[2018-02-08] MEDS: INSULIN ASPART SLIDING SCALE 100 UNITS/ML UNIT SUBQ SCH ×4 (06:48→21:18)
[2018-02-08] MEDS: Multivitamin w/ Minerals Tab PO SCH (08:47)
[2018-02-08] MEDS: Aspirin 81mg Chewable Tab PO SCH (08:47)
--- NOTE | 2018-02-08 12:44 | Consultation ---
DATE OF CONSULTATION: 02/07/2018 REFERRING PHYSICIAN: Emre Brar MD TYPE OF CONSULTATION: Psychology. HISTORY OF PRESENT ILLNESS: The patient is a 57-year-old male. The patient is a resident of [facility]. The following is by record review and by the patient's self-report. The patient is being admitted for depression and disruptive behavior. According to the staff at the patient's facility, it is reported that his behavior is disruptive and aggressive and that he is demanding to go back to his girlfriend in [place], [place]. 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 The patient presents with a depressed affect and admits that he is depressed regarding his circumstances. The patient appears to be easily agitated and reactive to loud external stimuli. Therefore, the patient was requesting to be in a room with no roommate. The patient denied any suicidal ideation, plan or intention. PAST MEDICAL HISTORY: Please see history and physical by Dr. Dunbar. PAST PSYCHIATRIC HISTORY: The patient admits a history of depression. There are no other records available at the time of this clinical interview. SUBSTANCE ABUSE HISTORY: The patient denied any history. PSYCHOSOCIAL HISTORY: The patient states that he lives in [place], but has a girlfriend in [place] and expects to be transferred to go live with his girlfriend. The patient stated that he is unemployed with no specific taoism affiliation. The patient is a high school graduate. The patient denied any history of physical or sexual abuse. The patient denies any current legal problems. MENTAL STATUS EXAMINATION: The patient appears to be his stated age. The patient's attitude is superficially cooperative. Eye contact is intermittent. Mood is depressed. Affect is constricted. Speech is soft and spontaneous. Thought process shows to be depressogenic and circumstantial. The patient denied any suicidal ideation,plan or intention. The patient denies any auditory or visual hallucinations. The patient is perseverating on his girlfriend and going to live with her. The patient demanded that the staff contact his girlfriend. Impulse control is limited. Concentration is fair to poor. Sensorium is alert and oriented to person, place. The patient did not participate in the interpretation of proverbs. The patient's memory is intact for immediate and short term dimensions. Long-term dimension indicates some possible impairment. This needs further evaluation. Insight is poor. Judgment is poor. DIAGNOSTIC IMPRESSION: AXIS I: Depressive disorder, not otherwise specified. AXIS II: Deferred. AXIS III: Per Dr. Dunbar. TREATMENT PLAN: The patient has been seen by Dr. Brar for psychiatric evaluation and for the management of the patient's psychotropic medications. We will provide supportive psychotherapy to include cognitive behavioral therapy to reduce the patient's depression. We will provide coping strategies for phase of life issues. The record indicates that the patient may have a possible mass and so there was a medical workup being completed. The patient declined any antidepressant medication; however, this will be further evaluated by the psychiatrist. The patient is requesting to make contact with his girlfriend, Case Management and Secondary Market Manager is aware of the request. Thank you Dr. Brar for this consult and the opportunity to participate in this patient's care. JOB# [id number] AKASH
--- NOTE | 2018-02-08 17:38 | Progress Notes ---
DATE: 02/08/2018 SUBJECTIVE: Staff was spoken to. The patient is interviewed. Mood is noted to be depressed. Affect is constricted. The patient's coping skills are noted to be poor. The patient is stating that he is getting frustrated for being in here. The patient is stating he has been waiting for his traffic agent to come by and the patient has been getting easily upset. Coping skills are noted to be poor. Insight and judgment are also noted to be limited. In view of his depression, it is decided to start the patient on low dose of Lexapro that is going to be given at 5 mg in the morning and followed up with the supportive therapy. ASSESSMENT: The patient is depressed. PLAN: To continue the patient with the supportive therapy and followup. JOB# [id number]
[2018-02-08] MEDS: Pantoprazole 40 mg EC Tab PO SCH (21:18)
[2018-02-09] MEDS: INSULIN ASPART SLIDING SCALE 100 UNITS/ML UNIT SUBQ SCH ×4 (06:35→21:30)
[2018-02-09] MEDS: Multivitamin w/ Minerals Tab PO SCH (08:31)
[2018-02-09] MEDS: Aspirin 81mg Chewable Tab PO SCH (08:32)
[2018-02-09] MEDS: Pantoprazole 40 mg EC Tab PO SCH ×2 (08:32→21:31)
[2018-02-09] MEDS: Escitalopram Oxalate 5 mg Tab PO SCH (10:00)
--- NOTE | 2018-02-09 15:29 | General Progress Note ---
Subjective - Review of Systems Events since last encounter: patient depressed withdrawn denies pain Objective - Results Result Diagrams: 02/04/18 19:02 02/04/18 19: Recent Labs: Laboratory Last Values WBC 7.9 Th/cmm (4.8-10.8) 02/04/18 19: RBC 4.48 Mil/cmm (4.30-5.70) 02/04/18 19: Hgb 13.6 gm/dL (12-16) 02/04/18 19: Hct 40.2 % (41.0-60) L 02/04/18 19: MCV 89.7 fl (80-99) 02/04/18 19: MCH 30.2 pg (26.0-30.0) H 02/04/18 19: MCHC Differential 33.7 pg (28.0-36.0) 02/04/18 19: RDW 12.8 % (11.5-20.0) 02/04/18: Plt Count 343 Th/cmm (150-400) 02/04/18 19:02 MPV 7.2 fl 02/04/18 19:02 Neutrophils % 49.2 % (40.0-80.0) 02/04/18 19: Lymphocytes % 40.5 % (20.0-50.0) 02/04/18 19: Monocytes % 8.0 % (2.0-10.0) 02/04/18 19: Eosinophils % 1.5 % (0.0-5.0) 02/04/18 19: Basophils % 0.8 % (0.0-2.0) 02/04/18 19: PT 10.0 SECONDS (9.5-11.5) 02/04/18 19:02 INR 0.96 (0.5-1.4) 02/04/18 19:02 PTT (Actin FS) 23.1 SECONDS (26.0-38.0) L 02/04/18 19:02 Sodium 135 mEq/L (136-145) L 02/04/18 19:02 Potassium 4.4 mEq/L (3.5-5.1) 02/04/18 19:02 Chloride 99 mEq/L (98-107) 02/04/18 19:02 Carbon Dioxide 29.8 mEq/L (21.0-31.0) 02/04/18 19:02 Anion Gap 10.6 (7.0-16.0) 02/04/18 19:02 BUN 18 mg/dL (7-25) 02/04/18 19:02 Creatinine 0.9 mg/dL (0.7-1.3) 02/04/18 19:02 Est GFR ( Amer) > 60.0 ml/min (>90) 02/04/18 19:02 Est GFR (Non-Af Amer) > 60.0 ml/min 02/04/18 19:02 BUN/Creatinine Ratio 20.0 02/04/18 19:02 Glucose 294 mg/dL (70-105) H 02/04/18 19:02 POC Glucose 223 MG/DL (70 - 105) H 02/09/18 11:32 Hemoglobin A1c % 7.3 % (4.0-6.0) H 02/04/18 19:02 Calcium 9.6 mg/dL (8.6-10.3) 02/04/18 19:02 Magnesium 1.7 mg/dL (1.9-2.7) L 02/04/18 19:02 Total Bilirubin 0.4 mg/dL (0.3-1.0) 02/04/18 19:02 AST 9 U/L (13-39) L 02/04/18 19:02 ALT 10 U/L (7-52) 02/04/18 19:02 Alkaline Phosphatase 61 U/L (34-104) 02/04/18 19:02 Troponin I < 0.01 ng/mL (0.01-0.05) L 02/04/18 19:02 B-Natriuretic Peptide < 5.0 pg/mL (5.0-100.0) L 02/04/18 19:02 Total Protein 6.8 gm/dL (6.0-8.3) 02/04/18 19:02 Albumin 4.4 gm/dL (4.2-5.5) 02/04/18 19:02 Globulin 2.4 gm/dL 02/04/18 19:02 Albumin/Globulin Ratio 1.8 (1.0-1.8) 02/04/18 19:02 Urine Source RANDOM 02/05/18 00:00 Urine Color YELLOW 02/05/18 00:00 Urine Clarity CLEAR (CLEAR) 02/05/18 00:00 Urine pH 5.5 (4.6 - 8.0) 02/05/18 00:00 Ur Specific [place] 1.020 (1.005-1.030) 02/05/18 00:00 Urine Protein TRACE mg/dL (NEGATIVE) 02/05/18 00:00 Urine Glucose (UA) >=1000 mg/dL (NEGATIVE) H 02/05/18 00:00 Urine Ketones NEGATIVE mg/dL (NEGATIVE) 02/05/18 00:00 Urine Blood NEGATIVE (NEGATIVE) 02/05/18 00:00 Urine Nitrate NEGATIVE (NEGATIVE) 02/05/18 00:00 Urine Bilirubin NEGATIVE (NEGATIVE) 02/05/18 00:00 Urine Urobilinogen 0.2 E.U./dL (0.2 - 1.0) 02/05/18 00:00 Ur Leukocyte Esterase NEGATIVE (NEGATIVE) 02/05/18 00:00 Urine RBC NONE SEEN /hpf (0-5) 02/05/18 00:00 Urine WBC NONE SEEN /hpf (0-5) 02/05/18 00:00 Ur Epithelial Cells NONE SEEN /lpf (FEW) 02/05/18 00:00 Urine Bacteria NONE SEEN /hpf (NONE SEEN) 02/05/18 00:00 - Physical Exam Vitals and I&O: Vital Signs Temp 97.5 F 02/09/18 15:23 Pulse 94 02/09/18 15:23 Resp 18 02/09/18 15:23 BP 146/73 02/09/18 15:23 Pulse Ox 96 02/09/18 15:23 Intake & Output 02/08/1818 02/09/18 18:59 06:59 18:59 Output Total 0 Balance 0 Output: Stool 0 Other: # Voids 2 Active Medications: Current Medications Ascorbic Acid (Vitamin C) 500 mg PO BID [facility] Stop: 04/06/18 08:59 Last Admin: 02/09/18 08:32 Dose: 500 mg Aspirin (Aspirin Chewable) 81 mg PO DAILY [facility] Stop: 04/06/18 08:59 Last Admin: 02/09/18 08:32 Dose: 81 mg Calcium Carbonate (Os-Colten) 500 mg PO DAILY [facility] Stop: 04/06/18 08:59 Last Admin: 02/09/18 08:32 Dose: 500 mg Cholecalciferol (Vitamin D3) 2,000 iu PO DAILY [facility] Stop: 04/06/18 08:59 Last Admin: 02/09/18 08:32 Dose: 2,000 iu Dextrose (D50w) 50 ml IVP PRN PRN; Protocol PRN Reason: HYPOGLYCEMIA Stop: 04/06/18 05:08 Escitalopram Oxalate (Lexapro) 5 mg PO DAILY [facility]AVIN; Protocol Stop: 04/10/18 08:59 Insulin Aspart (Novolog Insulin Sliding Scale) 0 units SUBQ ACHS RAVIN; Protocol Stop: 04/06/18 07:29 Last Admin: 02/09/18 12:01 Dose: 4 units Lorazepam (Ativan) 0.5 mg PO Q6HR PRN; Protocol PRN Reason: Agitation Stop: 04/06/18 02:52 Last Admin: 02/06/18 23:45 Dose: 0.5 mg Metformin HCl (Glucophage) 500 mg PO BID [facility] Stop: 04/06/18 08:59 Last Admin: 02/09/18 08:31 Dose: 500 mg Pantoprazole Sodium (Protonix) 40 mg PO Q12HR [facility] Stop: 04/09/18 20:59 Last Admin: 02/09/18 08:32 Dose: 40 mg Quetiapine Fumarate (Seroquel) 12.5 mg PO HS [facility]IN; Protocol Stop: 04/06/18 20:59 Last Admin: 02/08/18 21:18 Dose: 12.5 mg Simvastatin (Zocor) 10 mg PO HS [facility]IN; Protocol Stop: 04/06/18 20:59 Last Admin: 02/08/18 21:18 Dose: 10 mg Zolpidem Tartrate (Ambien) 5 mg PO HS PRN PRN Reason: Insomnia Stop: 04/06/18 02:49 Last Admin: 02/07/18 20:43 Dose: 5 mg General: No acute distress HEENT: Atraumatic Neck: Supple Cardiovascular: Regular rate, Normal S1, Normal S2 Lungs: Clear to auscultation Assessment/Plan - Problem List Patient Problems: All Active Problems INCREASED AGGRESSION WITH DISRUPTION (Acute) - Plan Plan: as per psych will monitor Nutritional Asmnt/Malnutr-PDOC - Dietary Evaluation Malnutrition Findings (Please click <Entered> for more info): Nutritional Asmnt/Malnutrition Start: 02/05/18 11: 37 Text: Status: Complete Freq: Protocol: Document 02/05/18 11:37 GLORIA (Rec: 02/05/18 11:52 GLORIA MO- [email or web address]) Nutritional Asmnt/Malnutrition Patient General Information Nutritional Screening High Risk Diagnosis aggressive behavior, psychosis Pertinent Medical Hx/Surgical Hx intellectual disabilities, depression, anxiety, psychosis Subjective Information Patient seen as high risk due to glucose on admission >180. Per nursing notes, lower extremity 2+ non pitting edema . Per nurse, patient is not eating his meals and wants " something he can recognize" to eat. Diet education not appropriate at this time. Current Diet Order/ Nutrition Support 60 gm CCHO Patient / S.O Not Indicated Pertinent Medications vitamin C, OS-colten, vitamin D, D50W @ 50 ml/hr, Novolog, Glucophage Pertinent Labs (02/04) Na 135, GLucose 294, mg 1.7 Nutritional Hx/Data Height 1.73 m Height (Calculated Centimeters) 172.7 Current Weight (lbs) 77.111 kg Weight (Calculated Kilograms) 77.1 Weight (Calculated Grams) 08786.7 [place] Body Weight 154 % [place] Body Weight 110 Body Mass Index (BMI) 25.8 Recent Weight Change No Weight Status Overweight GI Symptoms GI Symptoms None Last BM prior to admission Difficult in: None Food Allergies No Cultural/Ethnic/Episcopal Belief None indicated Usual diet at home unknown Skin Integrity/Comment: Kevin Rodriguez Estimated Nutritional Goals BEE in Kcals: Using Current wt Calories/Kcals/Kg 25-30 kcal/kg using CBW 77.2kg Kcals Calculated 5221-7332 kcal/day Protein: Using Current wt Protein g/k.8-1 gm/kg Protein Calculated 60-75 gm/day Fluid: ml 2219-9015 ml/day (1 ml/kcal) Nutritional Problem 1. Problem Problem Altered nutrition related lab values related to Etiology uncontrolled hyperglycemia aeb Signs/Symptoms: glucose 294 on admission Intervention/Recommendation Comments 1. Continue 60 gm CCHO diet as tolerated. Patient to fill out menu the day before to choose his meal preferences. 2. Will attempt DM Diet education at follow up. 3. MD to modify insulin regimen as needed for optimal glycemic control. Expected Outcomes/Goals Expected Outcomes/Goals oral intake >75% Of meals, weight stable or trend toward IBW, glucose/nutrition related labs [place]. F/U As MR 02/08-
--- NOTE | 2018-02-09 22:37 | Progress Notes ---
DATE: 02/09/2018 SUBJECTIVE: Staff was spoken to. The patient is interviewed. Mood is noted to be irritable. Affect is constricted. Insight and judgment are noted to be still impaired. Impulse control is noted to be limited. The patient is getting easily agitated. The patient has been frustrated and is stating that he is feeling depressed and the patient has been placed on the Lexapro low dose and the patient is being closely monitored at this time. ASSESSMENT: The patient is still depressed. PLAN: To continue with the Lexapro and follow the patient with the supportive therapy. JOB# [id number]
[2018-02-10] MEDS: INSULIN ASPART SLIDING SCALE 100 UNITS/ML UNIT SUBQ SCH ×4 (06:32→20:32)
[2018-02-10] MEDS: Aspirin 81mg Chewable Tab PO SCH (08:54)
[2018-02-10] MEDS: Escitalopram Oxalate 5 mg Tab PO SCH (08:54)
[2018-02-10] MEDS: Pantoprazole 40 mg EC Tab PO SCH ×2 (08:55→20:42)
[2018-02-10] MEDS: Multivitamin w/ Minerals Tab PO SCH (08:55)
--- NOTE | 2018-02-10 12:23 | General Progress Note ---
Subjective - Review of Systems Events since last encounter: patient continues to be depressed in no acute distress Objective - Results Result Diagrams: 02/04/18 19:02 02/04/18 19: Recent Labs: Laboratory Last Values WBC 7.9 Th/cmm (4.8-10.8) 02/04/18 19: RBC 4.48 Mil/cmm (4.30-5.70) 02/04/18 19:02 Hgb 13.6 gm/dL (12-16) 02/04/18 19:02 Hct 40.2 % (41.0-60) L 02/04/18 19: MCV 89.7 fl (80-99) 02/04/18 19: MCH 30.2 pg (26.0-30.0) H 02/04/18 19: MCHC Differential 33.7 pg (28.0-36.0) 02/04/18 19: RDW 12.8 % (11.5-20.0) 02/04/18 19: Plt Count 343 Th/cmm (150-400) 02/04/18 19:02 MPV 7.2 fl 02/04/18 19:02 Neutrophils % 49.2 % (40.0-80.0) 02/04/18 19: Lymphocytes % 40.5 % (20.0-50.0) 02/04/18 19: Monocytes % 8.0 % (2.0-10.0) 02/04/18 19:02 Eosinophils % 1.5 % (0.0-5.0) 02/04/18 19: Basophils % 0.8 % (0.0-2.0) 02/04/18 19:02 PT 10.0 SECONDS (9.5-11.5) 02/04/18 19:02 INR 0.96 (0.5-1.4) 02/04/18 19:02 PTT (Actin FS) 23.1 SECONDS (26.0-38.0) L 02/04/18 19:02 Sodium 135 mEq/L (136-145) L 02/04/18 19:02 Potassium 4.4 mEq/L (3.5-5.1) 02/04/18 19:02 Chloride 99 mEq/L (98-107) 02/04/18 19:02 Carbon Dioxide 29.8 mEq/L (21.0-31.0) 02/04/18 19:02 Anion Gap 10.6 (7.0-16.0) 02/04/18 19:02 BUN 18 mg/dL (7-25) 02/04/18 19:02 Creatinine 0.9 mg/dL (0.7-1.3) 02/04/18 19:02 Est GFR ( Amer) > 60.0 ml/min (>90) 02/04/18 19:02 Est GFR (Non-Af Amer) > 60.0 ml/min 02/04/18 19:02 BUN/Creatinine Ratio 20.0 02/04/18 19:02 Glucose 294 mg/dL (70-105) H 02/04/18 19:02 POC Glucose 237 MG/DL (70 - 105) H 02/10/18 06:03 Hemoglobin A1c % 7.3 % (4.0-6.0) H 02/04/18 19:02 Calcium 9.6 mg/dL (8.6-10.3) 02/04/18 19:02 Magnesium 1.7 mg/dL (1.9-2.7) L 02/04/18 19:02 Total Bilirubin 0.4 mg/dL (0.3-1.0) 02/04/18 19:02 AST 9 U/L (13-39) L 02/04/18 19:02 ALT 10 U/L (7-52) 02/04/18 19:02 Alkaline Phosphatase 61 U/L (34-104) 02/04/18 19:02 Troponin I < 0.01 ng/mL (0.01-0.05) L 02/04/18 19:02 B-Natriuretic Peptide < 5.0 pg/mL (5.0-100.0) L 02/04/18 19:02 Total Protein 6.8 gm/dL (6.0-8.3) 02/04/18 19:02 Albumin 4.4 gm/dL (4.2-5.5) 02/04/18 19:02 Globulin 2.4 gm/dL 02/04/18 19:02 Albumin/Globulin Ratio 1.8 (1.0-1.8) 02/04/18 19:02 Urine Source RANDOM 02/05/18 00:00 Urine Color YELLOW 02/05/18 00:00 Urine Clarity CLEAR (CLEAR) 02/05/18 00:00 Urine pH 5.5 (4.6 - 8.0) 02/05/18 00:00 Ur Specific [place] 1.020 (1.005-1.030) 02/05/18 00:00 Urine Protein TRACE mg/dL (NEGATIVE) 02/05/18 00:00 Urine Glucose (UA) >=1000 mg/dL (NEGATIVE) H 02/05/18 00:00 Urine Ketones NEGATIVE mg/dL (NEGATIVE) 02/05/18 00:00 Urine Blood NEGATIVE (NEGATIVE) 02/05/18 00:00 Urine Nitrate NEGATIVE (NEGATIVE) 02/05/18 00:00 Urine Bilirubin NEGATIVE (NEGATIVE) 02/05/18 00:00 Urine Urobilinogen 0.2 E.U./dL (0.2 - 1.0) 02/05/18 00:00 Ur Leukocyte Esterase NEGATIVE (NEGATIVE) 02/05/18 00:00 Urine RBC NONE SEEN /hpf (0-5) 02/05/18 00:00 Urine WBC NONE SEEN /hpf (0-5) 02/05/18 00:00 Ur Epithelial Cells NONE SEEN /lpf (FEW) 02/05/18 00:00 Urine Bacteria NONE SEEN /hpf (NONE SEEN) 02/05/18 00:00 - Physical Exam Vitals and I&O: Vital Signs Temp 96.9 F 02/09/18 20:00 Pulse 74 02/09/18 20:00 Resp 18 02/10/18 08:00 BP 110/71 02/09/18 20:00 Pulse Ox 94 02/09/18 20:00 Intake & Output 02/09/18 02/10/18 02/10/18 18:59 06:59 18:59 Intake Total 70 Output Total 1 Balance -1 70 Intake: Oral 70 Output: Stool 1 Other: # Voids 3 1 Active Medications: Current Medications Ascorbic Acid (Vitamin C) 500 mg PO BID [facility] Stop: 04/06/18 08:59 Last Admin: 02/10/18 08:54 Dose: 500 mg Aspirin (Aspirin Chewable) 81 mg PO DAILY [facility] Stop: 04/06/18 08:59 Last Admin: 02/10/18 08:54 Dose: 81 mg Calcium Carbonate (Os-Colten) 500 mg PO DAILY [facility] Stop: 04/06/18 08:59 Last Admin: 02/10/18 08:54 Dose: 500 mg Cholecalciferol (Vitamin D3) 2,000 iu PO DAILY [facility] Stop: 04/06/18 08:59 Last Admin: 02/10/18 08:55 Dose: 2,000 iu Dextrose (D50w) 50 ml IVP PRN PRN; Protocol PRN Reason: HYPOGLYCEMIA Stop: 04/06/18 05:08 Escitalopram Oxalate (Lexapro) 5 mg PO DAILY [facility]; Protocol Stop: 04/10/18 08:59 Last Admin: 02/10/18 08:54 Dose: 5 mg Insulin Aspart (Novolog Insulin Sliding Scale) 0 units SUBQ ACHS [facility]; Protocol Stop: 04/06/18 07:29 Last Admin: 02/10/18 11:57 Dose: 6 units Lorazepam (Ativan) 0.5 mg PO Q6HR PRN; Protocol PRN Reason: Agitation Stop: 04/06/18 02:52 Last Admin: 02/06/18 23:45 Dose: 0.5 mg Metformin HCl (Glucophage) 500 mg PO BID [facility] Stop: 04/06/18 08:59 Last Admin: 02/10/18 08:55 Dose: 500 mg Pantoprazole Sodium (Protonix) 40 mg PO Q12HR [facility] Stop: 04/09/18 20:59 Last Admin: 02/10/18 08:55 Dose: 40 mg Quetiapine Fumarate (Seroquel) 12.5 mg PO HS [facility]; Protocol Stop: 04/06/18 20:59 Last Admin: 02/09/18 21:31 Dose: 12.5 mg Simvastatin (Zocor) 10 mg PO HS [facility]; Protocol Stop: 04/06/18 20:59 Last Admin: 02/09/18 21:31 Dose: 10 mg Zolpidem Tartrate (Ambien) 5 mg PO HS PRN PRN Reason: Insomnia Stop: 04/06/18 02:49 Last Admin: 02/07/18 20:43 Dose: 5 mg General: No acute distress HEENT: Atraumatic Neck: Supple Cardiovascular: Regular rate, Normal S1, Normal S2 Lungs: Clear to auscultation Assessment/Plan - Problem List Patient Problems: All Active Problems INCREASED AGGRESSION WITH DISRUPTION (Acute) - Plan Plan: as per psych will monitor Nutritional Asmnt/Malnutr-PDOC - Dietary Evaluation Malnutrition Findings (Please click <Entered> for more info): Nutritional Asmnt/Malnutrition Start: 02/05/18 11: 37 Text: Status: Complete Freq: Protocol: Document 02/05/18 11:37 [email or web address] (Rec: 02/05/18 11:52 GLORIA [email or web address]) Nutritional Asmnt/Malnutrition Patient General Information Nutritional Screening High Risk Diagnosis aggressive behavior, psychosis Pertinent Medical Hx/Surgical Hx intellectual disabilities, depression, anxiety, psychosis Subjective Information Patient seen as high risk due to glucose on admission >180. Per nursing notes, lower extremity 2+ non pitting edema . Per nurse, patient is not eating his meals and wants " something he can recognize" to eat. Diet education not appropriate at this time. Current Diet Order/ Nutrition Support 60 gm CCHO Patient / S.O Not Indicated Pertinent Medications vitamin C, OS-colten, vitamin D, D50W @ 50 ml/hr, Novolog, Glucophage Pertinent Labs (02/04) Na 135, GLucose 294, mg 1.7 Nutritional Hx/Data Height 1.73 m Height (Calculated Centimeters) 172.7 Current Weight (lbs) 77.111 kg Weight (Calculated Kilograms) 77.1 Weight (Calculated Grams) 83212.7 [place] Body Weight 154 % [place] Body Weight 110 Body Mass Index (BMI) 25.8 Recent Weight Change No Weight Status Overweight GI Symptoms GI Symptoms None Last BM prior to admission Difficult in: None Food Allergies No Cultural/Ethnic/Confucianism Belief None indicated Usual diet at home unknown Skin Integrity/Comment: Kevin 20 Estimated Nutritional Goals BEE in Kcals: Using Current wt Calories/Kcals/Kg 25-30 kcal/kg using CBW 77.2kg Kcals Calculated 9579-6960 kcal/day Protein: Using Current wt Protein g/k.8-1 gm/kg Protein Calculated 60-75 gm/day Fluid: ml 9711-1768 ml/day (1 ml/kcal) Nutritional Problem 1. Problem Problem Altered nutrition related lab values related to Etiology uncontrolled hyperglycemia aeb Signs/Symptoms: glucose 294 on admission Intervention/Recommendation Comments 1. Continue 60 gm CCHO diet as tolerated. Patient to fill out menu the day before to choose his meal preferences. 2. Will attempt DM Diet education at follow up. 3. MD to modify insulin regimen as needed for optimal glycemic control. Expected Outcomes/Goals Expected Outcomes/Goals oral intake >75% Of meals, weight stable or trend toward IBW, glucose/nutrition related labs jerry. F/U As MR 02/08-
--- NOTE | 2018-02-10 21:24 | Progress Notes ---
DATE: 02/10/2018 SUBJECTIVE: Staff was spoken to. The patient is interviewed. Mood is noted to be irritable. Affect is constricted. Insight and judgment at this time are noted to be still impaired. Impulse control is limited. Coping skills are noted to be limited. The patient has been having difficult time to cope with the stress. The patient is getting easily frustrated. No aggressive behavior is reported today. The patient is able to tolerate the Lexapro. ASSESSMENT: The patient is still impulsive. PLAN: To continue the patient with supportive therapy, encouraged the patient to verbalize the concerns. The patient is going to be continued on the Lexapro for his depression. JOB# [id number]
[2018-02-11] MEDS: INSULIN ASPART SLIDING SCALE 100 UNITS/ML UNIT SUBQ SCH ×5 (06:36→21:07)
[2018-02-11] MEDS: Multivitamin w/ Minerals Tab PO SCH (09:15)
[2018-02-11] MEDS: Aspirin 81mg Chewable Tab PO SCH (09:15)
[2018-02-11] MEDS: Pantoprazole 40 mg EC Tab PO SCH ×2 (09:15→21:08)
[2018-02-11] MEDS: Escitalopram Oxalate 5 mg Tab PO SCH (09:15)
[2018-02-12] MEDS: INSULIN ASPART SLIDING SCALE 100 UNITS/ML UNIT SUBQ SCH ×4 (06:30→20:38)
--- NOTE | 2018-02-12 06:51 | Progress Notes ---
DATE: 02/11/2018 SUBJECTIVE: Staff was spoken to. The patient is interviewed. Mood is noted to be depressed. Affect is constricted. Coping skills are noted to be poor. The patient has been having difficult time to cope with the stress. The patient is stating that he has been trying for his color dipper to come. The patient has been feeling frustrated. Sleep is noted to be poor. Appetite is noted to be fair. ASSESSMENT: The patient is still depressed. PLAN: To continue with Lexapro and follow. JOB# [id number]
[2018-02-12] MEDS: Escitalopram Oxalate 5 mg Tab PO SCH (08:44)
[2018-02-12] MEDS: Multivitamin w/ Minerals Tab PO SCH (08:45)
[2018-02-12] MEDS: Aspirin 81mg Chewable Tab PO SCH (08:45)
[2018-02-12] MEDS: Pantoprazole 40 mg EC Tab PO SCH ×2 (08:46→20:38)
--- NOTE | 2018-02-12 17:56 | Progress Notes ---
DATE: 02/12/2018 SUBJECTIVE: The patient was seen in his room. The patient is asleep but easily arousable. The patient appears to be guarded. The patient appears to be low with energy and tends to isolate himself. Otherwise, the patient is in no acute distress. OBJECTIVE: VITAL SIGNS: Temperature 98.6, heart rate of 92, blood pressure 96/58, respirations 20, 97% on room air. HEENT: Head is atraumatic and normocephalic. Eyes: Bilateral conjunctivae are clear. Bilateral pupils are equally round and reactive. NECK: Supple. No JVD. CARDIOVASCULAR: S1 and S2, without murmur. PULMONARY: Clear to auscultation. GASTROINTESTINAL: Soft and nontender without guarding. Positive bowel sounds. MUSCULOSKELETAL: No clubbing, no cyanosis noted. ASSESSMENT: 1. Major depression disorder. 2. Diabetes. 3. Osteoarthritis. 4. Vitamin D deficiency. PLAN: We will keep the patient inpatient at [facility]. We will continue to follow up with a psychiatrist to monitor the patient's condition and behavior. Treatment plans were discussed with the patient's nurse. Treatment plans were discussed with Dr. Dunbar. JOB# [id number]
--- NOTE | 2018-02-12 18:24 | Progress Notes ---
DATE: 02/12/2018 SUBJECTIVE: Staff was spoken to. The patient is interviewed. Mood is noted to be depressed. Affect is constricted. The patient is isolative and withdrawn. Coping skills are noted to be very poor. The patient has been having difficult time to cope with the stress. The patient is stating that he is waiting for his applied anthropologist to come from [place] and he would like to go home. ASSESSMENT: The patient is still depressed. PLAN: To continue the patient with the supportive therapy and gradually increase the dose on the Lexapro to 10 mg and follow the patient up with supportive therapy. JOB# [id number]
[2018-02-13] MEDS: INSULIN ASPART SLIDING SCALE 100 UNITS/ML UNIT SUBQ SCH ×4 (06:42→20:18)
[2018-02-13] MEDS: Aspirin 81mg Chewable Tab PO SCH (09:22)
[2018-02-13] MEDS: Pantoprazole 40 mg EC Tab PO SCH ×2 (09:22→20:19)
[2018-02-13] MEDS: Multivitamin w/ Minerals Tab PO SCH (09:22)
[2018-02-13] MEDS: Escitalopram Oxalate 5 mg Tab PO SCH (09:22)
--- NOTE | 2018-02-13 10:24 | General Progress Note ---
Subjective - Review of Systems Events since last encounter: patient depressed withdrawn from others Objective - Results Result Diagrams: 02/04/18 19:02 02/04/18 19: Recent Labs: Laboratory Last Values WBC 7.9 Th/cmm (4.8-10.8) 02/04/18 19: RBC 4.48 Mil/cmm (4.30-5.70) 02/04/18 19: Hgb 13.6 gm/dL (12-16) 02/04/18 19: Hct 40.2 % (41.0-60) L 02/04/18 19: MCV 89.7 fl (80-99) 02/04/18 19: MCH 30.2 pg (26.0-30.0) H 02/04/18 19: MCHC Differential 33.7 pg (28.0-36.0) 02/04/18 19: RDW 12.8 % (11.5-20.0) 02/04/18 19: Plt Count 343 Th/cmm (150-400) 02/04/18 19:02 MPV 7.2 fl 02/04/18 19:02 Neutrophils % 49.2 % (40.0-80.0) 02/04/18 19: Lymphocytes % 40.5 % (20.0-50.0) 02/04/18 19: Monocytes % 8.0 % (2.0-10.0) 02/04/18 19: Eosinophils % 1.5 % (0.0-5.0) 02/04/18 19: Basophils % 0.8 % (0.0-2.0) 02/04/18 19:02 PT 10.0 SECONDS (9.5-11.5) 02/04/18 19:02 INR 0.96 (0.5-1.4) 02/04/18 19:02 PTT (Actin FS) 23.1 SECONDS (26.0-38.0) L 02/04/18 19:02 Sodium 135 mEq/L (136-145) L 02/04/18 19:02 Potassium 4.4 mEq/L (3.5-5.1) 02/04/18 19:02 Chloride 99 mEq/L (98-107) 02/04/18 19:02 Carbon Dioxide 29.8 mEq/L (21.0-31.0) 02/04/18 19:02 Anion Gap 10.6 (7.0-16.0) 02/04/18 19:02 BUN 18 mg/dL (7-25) 02/04/18 19:02 Creatinine 0.9 mg/dL (0.7-1.3) 02/04/18 19:02 Est GFR ( Amer) > 60.0 ml/min (>90) 02/04/18 19:02 Est GFR (Non-Af Amer) > 60.0 ml/min 02/04/18 19:02 BUN/Creatinine Ratio 20.0 02/04/18 19:02 Glucose 294 mg/dL (70-105) H 02/04/18 19:02 POC Glucose 187 MG/DL (70 - 105) H 02/13/18 06:27 Hemoglobin A1c % 7.3 % (4.0-6.0) H 02/04/18 19:02 Calcium 9.6 mg/dL (8.6-10.3) 02/04/18 19:02 Magnesium 1.7 mg/dL (1.9-2.7) L 02/04/18 19:02 Total Bilirubin 0.4 mg/dL (0.3-1.0) 02/04/18 19:02 AST 9 U/L (13-39) L 02/04/18 19:02 ALT 10 U/L (7-52) 02/04/18 19:02 Alkaline Phosphatase 61 U/L (34-104) 02/04/18 19:02 Troponin I < 0.01 ng/mL (0.01-0.05) L 02/04/18 19:02 B-Natriuretic Peptide < 5.0 pg/mL (5.0-100.0) L 02/04/18 19:02 Total Protein 6.8 gm/dL (6.0-8.3) 02/04/18 19:02 Albumin 4.4 gm/dL (4.2-5.5) 02/04/18 19:02 Globulin 2.4 gm/dL 02/04/18 19:02 Albumin/Globulin Ratio 1.8 (1.0-1.8) 02/04/18 19:02 Urine Source RANDOM 02/05/18 00:00 Urine Color YELLOW 07/14/18 00:00 Urine Clarity CLEAR (CLEAR) 02/05/18 00:00 Urine pH 5.5 (4.6 - 8.0) 02/05/18 00:00 Ur Specific [place] 1.020 (1.005-1.030) 02/05/18 00:00 Urine Protein TRACE mg/dL (NEGATIVE) 02/05/18 00:00 Urine Glucose (UA) >=1000 mg/dL (NEGATIVE) H 02/05/18 00:00 Urine Ketones NEGATIVE mg/dL (NEGATIVE) 02/05/18 00:00 Urine Blood NEGATIVE (NEGATIVE) 02/05/18 00:00 Urine Nitrate NEGATIVE (NEGATIVE) 02/05/18 00:00 Urine Bilirubin NEGATIVE (NEGATIVE) 02/05/18 00:00 Urine Urobilinogen 0.2 E.U./dL (0.2 - 1.0) 02/05/18 00:00 Ur Leukocyte Esterase NEGATIVE (NEGATIVE) 02/05/18 00:00 Urine RBC NONE SEEN /hpf (0-5) 02/05/18 00:00 Urine WBC NONE SEEN /hpf (0-5) 02/05/18 00:00 Ur Epithelial Cells NONE SEEN /lpf (FEW) 02/05/18 00:00 Urine Bacteria NONE SEEN /hpf (NONE SEEN) 02/05/18 00:00 RPR NONREACTIVE (NONREACTIVE) 02/04/18 19:02 - Physical Exam Vitals and I&O: Vital Signs Temp 97.1 F 02/13/18 06:51 Pulse 64 02/13/18 06:51 Resp 19 02/13/18 06:51 BP 120/62 02/13/18 06:51 Pulse Ox 99 02/13/18 06:51 Active Medications: Current Medications Ascorbic Acid (Vitamin C) 500 mg PO BID [facility] Stop: 04/06/18 08:59 Last Admin: 02/13/18 09:22 Dose: 500 mg Aspirin (Aspirin Chewable) 81 mg PO DAILY [facility] Stop: 04/06/18 08:59 Last Admin: 02/13/18 09:22 Dose: 81 mg Calcium Carbonate (Os-Colten) 500 mg PO DAILY [facility] Stop: 04/06/18 08:59 Last Admin: 02/13/18 09:22 Dose: 500 mg Cholecalciferol (Vitamin D3) 2,000 iu PO DAILY [facility] Stop: 04/06/18 08:59 Last Admin: 02/13/18 09:22 Dose: 2,000 iu Dextrose (D50w) 50 ml IVP PRN PRN; Protocol PRN Reason: HYPOGLYCEMIA Stop: 04/06/18 05:08 Escitalopram Oxalate (Lexapro) 10 mg PO DAILY [facility]; Protocol Stop: 04/14/18 08:59 Last Admin: 02/13/18 09:22 Dose: 10 mg Insulin Aspart (Novolog Insulin Sliding Scale) 0 units SUBQ ACHS [facility]; Protocol Stop: 04/06/18 07:29 Last Admin: 02/13/18 06:42 Dose: 2 units Metformin HCl (Glucophage) 500 mg PO BID [facility] Stop: 04/06/18 08:59 Last Admin: 02/13/18 09:22 Dose: 500 mg Pantoprazole Sodium (Protonix) 40 mg PO Q12HR [facility] Stop: 04/09/18 20:59 Last Admin: 02/13/18 09:22 Dose: 40 mg Quetiapine Fumarate (Seroquel) 12.5 mg PO HS [facility]; Protocol Stop: 04/06/18 20:59 Last Admin: 02/12/18 20:38 Dose: 12.5 mg Simvastatin (Zocor) 10 mg PO HS [facility]; Protocol Stop: 04/06/18 20:59 Last Admin: 02/12/18 20:37 Dose: 10 mg General: No acute distress HEENT: Atraumatic Neck: Supple Cardiovascular: Regular rate, Normal S1, Normal S2 Lungs: Clear to auscultation Assessment/Plan - Problem List Patient Problems: All Active Problems INCREASED AGGRESSION WITH DISRUPTION (Acute) - Plan Plan: as per psych will monitor Nutritional Asmnt/Malnutr-PDOC - Dietary Evaluation Malnutrition Findings (Please click <Entered> for more info): Nutritional Asmnt/Malnutrition Start: 02/05/18 11: 37 Text: Status: Complete Freq: Protocol: Document 02/05/18 11:37 GLORIA (Rec: 02/05/18 11:52 GLORIA HASSAN FN) Nutritional Asmnt/Malnutrition Patient General Information Nutritional Screening High Risk Diagnosis aggressive behavior, psychosis Pertinent Medical Hx/Surgical Hx intellectual disabilities, depression, anxiety, psychosis Subjective Information Patient seen as high risk due to glucose on admission >180. Per nursing notes, lower extremity 2+ non pitting edema . Per nurse, patient is not eating his meals and wants " something he can recognize" to eat. Diet education not appropriate at this time. Current Diet Order/ Nutrition Support 60 gm CCHO Patient / S.O Not Indicated Pertinent Medications vitamin C, OS-colten, vitamin D, D50W @ 50 ml/hr, Novolog, Glucophage Pertinent Labs (02/04) Na 135, GLucose 294, mg 1.7 Nutritional Hx/Data Height 1.73 m Height (Calculated Centimeters) 172.7 Current Weight (lbs) 77.111 kg Weight (Calculated Kilograms) 77.1 Weight (Calculated Grams) 73295.7 [place] Body Weight 154 % [place] Body Weight 110 Body Mass Index (BMI) 25.8 Recent Weight Change No Weight Status Overweight GI Symptoms GI Symptoms None Last BM prior to admission Difficult in: None Food Allergies No Cultural/Ethnic/Denominational Belief None indicated Usual diet at home unknown Skin Integrity/Comment: Kevin 20 Estimated Nutritional Goals BEE in Kcals: Using Current wt Calories/Kcals/Kg 25-30 kcal/kg using CBW 77.2kg Kcals Calculated 6202-7256 kcal/day Protein: Using Current wt Protein g/k.8-1 gm/kg Protein Calculated 60-75 gm/day Fluid: ml 0713-6303 ml/day (1 ml/kcal) Nutritional Problem 1. Problem Problem Altered nutrition related lab values related to Etiology uncontrolled hyperglycemia aeb Signs/Symptoms: glucose 294 on admission Intervention/Recommendation Comments 1. Continue 60 gm CCHO diet as tolerated. Patient to fill out menu the day before to choose his meal preferences. 2. Will attempt DM Diet education at follow up. 3. MD to modify insulin regimen as needed for optimal glycemic control. Expected Outcomes/Goals Expected Outcomes/Goals oral intake >75% Of meals, weight stable or trend toward IBW, glucose/nutrition related labs jerry. F/U As MR 02/08-
--- NOTE | 2018-02-13 22:08 | Progress Notes ---
DATE: 02/13/2018 SUBJECTIVE: Staff was spoken to. The patient is interviewed. Mood is noted to be anxious and depressed. Affect is constricted. Coping skills are noted to be poor at this time. Insight and judgment are also noted to be limited. The patient has been very much upset since his textile conservator never showed up. The patient has been frustrated. ASSESSMENT: The patient is depressed. PLAN: To continue the patient with the Lexapro. Encouraged the patient to verbalize the concerns rather than to act out. JOB# [id number]
[2018-02-14] MEDS: INSULIN ASPART SLIDING SCALE 100 UNITS/ML UNIT SUBQ SCH ×4 (06:35→21:22)
[2018-02-14] MEDS: Aspirin 81mg Chewable Tab PO SCH (09:02)
[2018-02-14] MEDS: Escitalopram Oxalate 5 mg Tab PO SCH (09:02)
[2018-02-14] MEDS: Pantoprazole 40 mg EC Tab PO SCH ×2 (09:02→21:06)
[2018-02-14] MEDS: Multivitamin w/ Minerals Tab PO SCH (09:02)
--- NOTE | 2018-02-14 14:56 | General Progress Note ---
Subjective - Review of Systems Events since last encounter: patient awake alert in no acute distress Objective - Results Result Diagrams: 02/04/18 19:02 02/04/18 19:02 Recent Labs: Laboratory Last Values WBC 7.9 Th/cmm (4.8-10.8) 02/04/18 19: RBC 4.48 Mil/cmm (4.30-5.70) 02/04/18 19:02 Hgb 13.6 gm/dL (12-16) 02/04/18 19:02 Hct 40.2 % (41.0-60) L 02/04/18 19:02 MCV 89.7 fl (80-99) 02/04/18 19: MCH 30.2 pg (26.0-30.0) H 02/04/18 19: MCHC Differential 33.7 pg (28.0-36.0) 02/04/18 19: RDW 12.8 % (11.5-20.0) 02/04/18 19: Plt Count 343 Th/cmm (150-400) 02/04/18 19:02 MPV 7.2 fl 02/04/18 19:02 Neutrophils % 49.2 % (40.0-80.0) 02/04/18 19: Lymphocytes % 40.5 % (20.0-50.0) 02/04/18 19: Monocytes % 8.0 % (2.0-10.0) 02/04/18 19: Eosinophils % 1.5 % (0.0-5.0) 02/04/18 19: Basophils % 0.8 % (0.0-2.0) 02/04/18 19:02 PT 10.0 SECONDS (9.5-11.5) 02/04/18 19:02 INR 0.96 (0.5-1.4) 02/04/18 19:02 PTT (Actin FS) 23.1 SECONDS (26.0-38.0) L 02/04/18 19:02 Sodium 135 mEq/L (136-145) L 02/04/18 19:02 Potassium 4.4 mEq/L (3.5-5.1) 02/04/18 19:02 Chloride 99 mEq/L (98-107) 02/04/18 19:02 Carbon Dioxide 29.8 mEq/L (21.0-31.0) 02/04/18 19:02 Anion Gap 10.6 (7.0-16.0) 02/04/18 19:02 BUN 18 mg/dL (7-25) 02/04/18 19:02 Creatinine 0.9 mg/dL (0.7-1.3) 02/04/18 19:02 Est GFR ( Amer) > 60.0 ml/min (>90) 02/04/18 19:02 Est GFR (Non-Af Amer) > 60.0 ml/min 02/04/18 19:02 BUN/Creatinine Ratio 20.0 02/04/18 19:02 Glucose 294 mg/dL (70-105) H 02/04/18 19:02 POC Glucose 237 MG/DL (70 - 105) H 02/14/18 11:05 Hemoglobin A1c % 7.3 % (4.0-6.0) H 02/04/18 19:02 Calcium 9.6 mg/dL (8.6-10.3) 02/04/18 19:02 Magnesium 1.7 mg/dL (1.9-2.7) L 02/04/18 19:02 Total Bilirubin 0.4 mg/dL (0.3-1.0) 02/04/18 19:02 AST 9 U/L (13-39) L 02/04/18 19:02 ALT 10 U/L (7-52) 02/04/18 19:02 Alkaline Phosphatase 61 U/L (34-104) 02/04/18 19:02 Troponin I < 0.01 ng/mL (0.01-0.05) L 02/04/18 19:02 B-Natriuretic Peptide < 5.0 pg/mL (5.0-100.0) L 02/04/18 19:02 Total Protein 6.8 gm/dL (6.0-8.3) 02/04/18 19:02 Albumin 4.4 gm/dL (4.2-5.5) 02/04/18 19:02 Globulin 2.4 gm/dL 02/04/18 19:02 Albumin/Globulin Ratio 1.8 (1.0-1.8) 02/04/18 19:02 Urine Source RANDOM 02/05/18 00:00 Urine Color YELLOW 02/05/18 00:00 Urine Clarity CLEAR (CLEAR) 02/05/18 00:00 Urine pH 5.5 (4.6 - 8.0) 02/05/18 00:00 Ur Specific [place] 1.020 (1.005-1.030) 02/05/18 00:00 Urine Protein TRACE mg/dL (NEGATIVE) 02/05/18 00:00 Urine Glucose (UA) >=1000 mg/dL (NEGATIVE) H 02/05/18 00:00 Urine Ketones NEGATIVE mg/dL (NEGATIVE) 02/05/18 00:00 Urine Blood NEGATIVE (NEGATIVE) 02/05/18 00:00 Urine Nitrate NEGATIVE (NEGATIVE) 02/05/18 00:00 Urine Bilirubin NEGATIVE (NEGATIVE) 02/05/18 00:00 Urine Urobilinogen 0.2 E.U./dL (0.2 - 1.0) 02/05/18 00:00 Ur Leukocyte Esterase NEGATIVE (NEGATIVE) 02/05/18 00:00 Urine RBC NONE SEEN /hpf (0-5) 02/05/18 00:00 Urine WBC NONE SEEN /hpf (0-5) 02/05/18 00:00 Ur Epithelial Cells NONE SEEN /lpf (FEW) 02/05/18 00:00 Urine Bacteria NONE SEEN /hpf (NONE SEEN) 02/05/18 00:00 RPR NONREACTIVE (NONREACTIVE) 02/04/18 19:02 - Physical Exam Vitals and I&O: Vital Signs Temp 97.0 F 02/14/18 06:14 Pulse 101 02/14/18 06:14 Resp 20 02/14/18 06:14 BP 105/56 02/14/18 06:14 Pulse Ox 94 02/14/18 06:14 Intake & Output 02/13/18 02/14/18 02/14/18 18:59 06:59 18:59 Intake Total 480 Balance 480 Intake: Oral 480 Other: # Voids 2 Active Medications: Current Medications Ascorbic Acid (Vitamin C) 500 mg PO BID [facility] Stop: 04/06/18 08:59 Last Admin: 02/14/18 09:02 Dose: 500 mg Aspirin (Aspirin Chewable) 81 mg PO DAILY [facility] Stop: 04/06/18 08:59 Last Admin: 02/14/18 09:02 Dose: 81 mg Calcium Carbonate (Os-Colten) 500 mg PO DAILY [facility] Stop: 04/06/18 08:59 Last Admin: 02/14/18 09:02 Dose: 500 mg Cholecalciferol (Vitamin D3) 2,000 iu PO DAILY [facility] Stop: 04/06/18 08:59 Last Admin: 02/14/18 09:02 Dose: 2,000 iu Dextrose (D50w) 50 ml IVP PRN PRN; Protocol PRN Reason: HYPOGLYCEMIA Stop: 04/06/18 05:08 Escitalopram Oxalate (Lexapro) 10 mg PO DAILY [facility]; Protocol Stop: 04/14/18 08:59 Last Admin: 02/14/18 09:02 Dose: 10 mg Insulin Aspart (Novolog Insulin Sliding Scale) 0 units SUBQ ACHS [facility]; Protocol Stop: 04/06/18 07:29 Last Admin: 02/14/18 11:16 Dose: 4 units Metformin HCl (Glucophage) 500 mg PO BID [facility] Stop: 04/06/18 08:59 Last Admin: 02/14/18 09:02 Dose: 500 mg Pantoprazole Sodium (Protonix) 40 mg PO Q12HR [facility] Stop: 04/09/18 20:59 Last Admin: 02/14/18 09:02 Dose: 40 mg Quetiapine Fumarate (Seroquel) 12.5 mg PO HS [facility]; Protocol Stop: 04/06/18 20:59 Last Admin: 02/13/18 20:19 Dose: 12.5 mg Simvastatin (Zocor) 10 mg PO HS [facility]; Protocol Stop: 04/06/18 20:59 Last Admin: 02/13/18 20:19 Dose: 10 mg General: No acute distress HEENT: Atraumatic Neck: Supple Cardiovascular: Regular rate, Normal S1, Normal S2 Lungs: Clear to auscultation Assessment/Plan - Problem List Patient Problems: All Active Problems INCREASED AGGRESSION WITH DISRUPTION (Acute) - Plan Plan: as per psych will monitor Nutritional Asmnt/Malnutr-PDOC - Dietary Evaluation Malnutrition Findings (Please click <Entered> for more info): Nutritional Asmnt/Malnutrition Start: 02/05/18 11: 37 Text: Status: Complete Freq: Protocol: Document 02/05/18 11:37 GLORIA (Rec: 02/05/18 11:52 GLORIA [facility]- [facility]) Nutritional Asmnt/Malnutrition Patient General Information Nutritional Screening High Risk Diagnosis aggressive behavior, psychosis Pertinent Medical Hx/Surgical Hx intellectual disabilities, depression, anxiety, psychosis Subjective Information Patient seen as high risk due to glucose on admission >180. Per nursing notes, lower extremity 2+ non pitting edema . Per nurse, patient is not eating his meals and wants " something he can recognize" to eat. Diet education not appropriate at this time. Current Diet Order/ Nutrition Support 60 gm CCHO Patient / S.O Not Indicated Pertinent Medications vitamin C, OS-colten, vitamin D, D50W @ 50 ml/hr, Novolog, Glucophage Pertinent Labs (02/04) Na 135, GLucose 294, mg 1.7 Nutritional Hx/Data Height 1.73 m Height (Calculated Centimeters) 172.7 Current Weight (lbs) 77.111 kg Weight (Calculated Kilograms) 77.1 Weight (Calculated Grams) 70549.7 [place] Body Weight 154 % [place] Body Weight 110 Body Mass Index (BMI) 25.8 Recent Weight Change No Weight Status Overweight GI Symptoms GI Symptoms None Last BM prior to admission Difficult in: None Food Allergies No Cultural/Ethnic/Restorationism Belief None indicated Usual diet at home unknown Skin Integrity/Comment: Kevin Rodriguez Estimated Nutritional Goals BEE in Kcals: Using Current wt Calories/Kcals/Kg 25-30 kcal/kg using CBW 77.2kg Kcals Calculated 5633-4259 kcal/day Protein: Using Current wt Protein g/k.8-1 gm/kg Protein Calculated 60-75 gm/day Fluid: ml 2204-8532 ml/day (1 ml/kcal) Nutritional Problem 1. Problem Problem Altered nutrition related lab values related to Etiology uncontrolled hyperglycemia aeb Signs/Symptoms: glucose 294 on admission Intervention/Recommendation Comments 1. Continue 60 gm CCHO diet as tolerated. Patient to fill out menu the day before to choose his meal preferences. 2. Will attempt DM Diet education at follow up. 3. MD to modify insulin regimen as needed for optimal glycemic control. Expected Outcomes/Goals Expected Outcomes/Goals oral intake >75% Of meals, weight stable or trend toward IBW, glucose/nutrition related labs jerry. F/U As MR 02/08-
--- NOTE | 2018-02-15 01:42 | Progress Notes ---
DATE: 02/14/2018 PSYCHIATRIC PROGRESS NOTE Staff was spoken to. The patient is interviewed. Mood is noted to be irritable. Affect is constricted. Coping skills are noted to be still poor. The patient has been getting easily frustrated. He states that he was expecting a call from the stock checkerer and she never showed up. The patient is getting frustrated. The patient is currently on medications and has been able to tolerate the antidepressant medication, Lexapro. ASSESSMENT: The patient is still depressed. PLAN: To continue the patient with supportive therapy. I encouraged the patient to verbalize the concerns rather than to act out. JOB# [id number]
[2018-02-15] MEDS: INSULIN ASPART SLIDING SCALE 100 UNITS/ML UNIT SUBQ SCH ×4 (06:40→21:31)
[2018-02-15] MEDS: Escitalopram Oxalate 5 mg Tab PO SCH (08:32)
[2018-02-15] MEDS: Aspirin 81mg Chewable Tab PO SCH (08:32)
[2018-02-15] MEDS: Multivitamin w/ Minerals Tab PO SCH (08:32)
[2018-02-15] MEDS: Pantoprazole 40 mg EC Tab PO SCH ×2 (08:32→21:04)
--- NOTE | 2018-02-15 14:36 | Internal Medicine Prog Note ---
Internal Medicine Subjective - Subjective Service Date: 02/15/18 Patient seen and examined:: with staff Patient is:: awake Per staff patient has:: tolerating meds Internal Medicine Objective - Results Result Diagrams: 02/04/18 19:02 02/04/18 19: Recent Labs: Laboratory Last Values WBC 7.9 Th/cmm (4.8-10.8) 02/04/18 19: RBC 4.48 Mil/cmm (4.30-5.70) 02/04/18 19:02 Hgb 13.6 gm/dL (12-16) 02/04/18 19:02 Hct 40.2 % (41.0-60) L 02/04/18 19: MCV 89.7 fl (80-99) 02/04/18 19: MCH 30.2 pg (26.0-30.0) H 02/04/18 19: MCHC Differential 33.7 pg (28.0-36.0) 02/04/18 19:02 RDW 12.8 % (11.5-20.0) 02/04/18 19: Plt Count 343 Th/cmm (150-400) 02/04/18 19:02 MPV 7.2 fl 02/04/18 19:02 Neutrophils % 49.2 % (40.0-80.0) 02/04/18 19: Lymphocytes % 40.5 % (20.0-50.0) 02/04/18 19: Monocytes % 8.0 % (2.0-10.0) 02/04/18 19: Eosinophils % 1.5 % (0.0-5.0) 02/04/18 19:02 Basophils % 0.8 % (0.0-2.0) 02/04/18 19:02 PT 10.0 SECONDS (9.5-11.5) 02/04/18 19:02 INR 0.96 (0.5-1.4) 02/04/18 19:02 PTT (Actin FS) 23.1 SECONDS (26.0-38.0) L 02/04/18 19:02 Sodium 135 mEq/L (136-145) L 02/04/18 19:02 Potassium 4.4 mEq/L (3.5-5.1) 02/04/18 19:02 Chloride 99 mEq/L (98-107) 02/04/18 19:02 Carbon Dioxide 29.8 mEq/L (21.0-31.0) 02/04/18 19:02 Anion Gap 10.6 (7.0-16.0) 02/04/18 19:02 BUN 18 mg/dL (7-25) 02/04/18 19:02 Creatinine 0.9 mg/dL (0.7-1.3) 02/04/18 19:02 Est GFR ( Amer) > 60.0 ml/min (>90) 02/04/18 19:02 Est GFR (Non-Af Amer) > 60.0 ml/min 02/04/18 19:02 BUN/Creatinine Ratio 20.0 02/04/18 19:02 Glucose 294 mg/dL (70-105) H 02/04/18 19:02 POC Glucose 246 MG/DL (70 - 105) H 02/15/18 11:10 Hemoglobin A1c % 7.3 % (4.0-6.0) H 02/04/18 19:02 Calcium 9.6 mg/dL (8.6-10.3) 02/04/18 19:02 Magnesium 1.7 mg/dL (1.9-2.7) L 02/04/18 19:02 Total Bilirubin 0.4 mg/dL (0.3-1.0) 02/04/18 19:02 AST 9 U/L (13-39) L 02/04/18 19:02 ALT 10 U/L (7-52) 02/04/18 19:02 Alkaline Phosphatase 61 U/L (34-104) 02/04/18 19:02 Troponin I < 0.01 ng/mL (0.01-0.05) L 02/04/18 19:02 B-Natriuretic Peptide < 5.0 pg/mL (5.0-100.0) L 02/04/18 19:02 Total Protein 6.8 gm/dL (6.0-8.3) 02/04/18 19:02 Albumin 4.4 gm/dL (4.2-5.5) 02/04/18 19:02 Globulin 2.4 gm/dL 02/04/18 19:02 Albumin/Globulin Ratio 1.8 (1.0-1.8) 02/04/18 19:02 Urine Source RANDOM 02/05/18 00:00 Urine Color YELLOW 02/05/18 00:00 Urine Clarity CLEAR (CLEAR) 02/05/18 00:00 Urine pH 5.5 (4.6 - 8.0) 02/05/18 00:00 Ur Specific [place] 1.020 (1.005-1.030) 02/05/18 00:00 Urine Protein TRACE mg/dL (NEGATIVE) 02/05/18 00:00 Urine Glucose (UA) >=1000 mg/dL (NEGATIVE) H 02/05/18 00:00 Urine Ketones NEGATIVE mg/dL (NEGATIVE) 02/05/18 00:00 Urine Blood NEGATIVE (NEGATIVE) 02/05/18 00:00 Urine Nitrate NEGATIVE (NEGATIVE) 02/05/18 00:00 Urine Bilirubin NEGATIVE (NEGATIVE) 02/05/18 00:00 Urine Urobilinogen 0.2 E.U./dL (0.2 - 1.0) 02/05/18 00:00 Ur Leukocyte Esterase NEGATIVE (NEGATIVE) 02/05/18 00:00 Urine RBC NONE SEEN /hpf (0-5) 02/05/18 00:00 Urine WBC NONE SEEN /hpf (0-5) 02/05/18 00:00 Ur Epithelial Cells NONE SEEN /lpf (FEW) 02/05/18 00:00 Urine Bacteria NONE SEEN /hpf (NONE SEEN) 02/05/18 00:00 RPR NONREACTIVE (NONREACTIVE) 02/04/18 19:02 - Physical Exam Vitals and I&O: Vital Signs Temp 97.8 F 02/15/18 06:02 Pulse 95 02/15/18 06:02 Resp 18 02/15/18 08:00 BP 124/82 02/15/18 06:02 Pulse Ox 99 02/15/18 06:02 Intake & Output 02/14/18 02/15/18 02/15/18 18:59 06:59 18:59 Intake Total 240 Balance 240 Intake: Oral 240 Other: # Voids 2 Active Medications: Current Medications Ascorbic Acid (Vitamin C) 500 mg PO BID [facility] Stop: 04/06/18 08:59 Last Admin: 02/15/18 08:32 Dose: 500 mg Aspirin (Aspirin Chewable) 81 mg PO DAILY [facility] Stop: 04/06/18 08:59 Last Admin: 02/15/18 08:32 Dose: 81 mg Calcium Carbonate (Os-Colten) 500 mg PO DAILY [facility] Stop: 04/06/18 08:59 Last Admin: 02/15/18 08:32 Dose: 500 mg Cholecalciferol (Vitamin D3) 2,000 iu PO DAILY [facility] Stop: 04/06/18 08:59 Last Admin: 02/15/18 08:32 Dose: 2,000 iu Dextrose (D50w) 50 ml IVP PRN PRN; Protocol PRN Reason: HYPOGLYCEMIA Stop: 04/06/18 05:08 Escitalopram Oxalate (Lexapro) 10 mg PO DAILY [facility]; Protocol Stop: 04/14/18 08:59 Last Admin: 02/15/18 08:32 Dose: 10 mg Insulin Aspart (Novolog Insulin Sliding Scale) 0 units SUBQ [facility]; Protocol Stop: 04/06/18 07:29 Last Admin: 02/15/18 11:15 Dose: 4 units Metformin HCl (Glucophage) 500 mg PO BID [facility] Stop: 04/06/18 08:59 Last Admin: 02/15/18 08:32 Dose: 500 mg Pantoprazole Sodium (Protonix) 40 mg PO Q12HR [facility] Stop: 04/09/18 20:59 Last Admin: 02/15/18 08:32 Dose: 40 mg Quetiapine Fumarate (Seroquel) 12.5 mg PO HS [facility]; Protocol Stop: 04/06/18 20:59 Last Admin: 02/14/18 21:06 Dose: 12.5 mg Simvastatin (Zocor) 10 mg PO HS [facility]; Protocol Stop: 04/06/18 20:59 Last Admin: 02/14/18 21:07 Dose: 10 mg Internal Medicine Assmt/Plan - Assessment Assessment: INCREASED AGGRESSION WITH DISRUPTION (Acute) - Plan Plan: cpm Nutritional Asmnt/Malnutr-PDOC - Dietary Evaluation Malnutrition Findings (Please click <Entered> for more info): Nutritional Asmnt/Malnutrition Start: 02/05/18 11: 37 Text: Status: Complete Freq: Protocol: Document 02/05/18 11:37 GLORIA (Rec: 02/05/18 11:52 GLORIA HASSAN- [email or web address]) Nutritional Asmnt/Malnutrition Patient General Information Nutritional Screening High Risk Diagnosis aggressive behavior, psychosis Pertinent Medical Hx/Surgical Hx intellectual disabilities, depression, anxiety, psychosis Subjective Information Patient seen as high risk due to glucose on admission >180. Per nursing notes, lower extremity 2+ non pitting edema . Per nurse, patient is not eating his meals and wants " something he can recognize" to eat. Diet education not appropriate at this time. Current Diet Order/ Nutrition Support 60 gm CCHO Patient / S.O Not Indicated Pertinent Medications vitamin C, OS-colten, vitamin D, D50W @ 50 ml/hr, Novolog, Glucophage Pertinent Labs (02/04) Na 135, GLucose 294, mg 1.7 Nutritional Hx/Data Height 5 ft 8 in Height (Calculated Centimeters) 172.7 Current Weight (lbs) 170 lb Weight (Calculated Kilograms) 77.1 Weight (Calculated Grams) 39929.7 [place] Body Weight 154 % [place] Body Weight 110 Body Mass Index (BMI) 25.8 Recent Weight Change No Weight Status Overweight GI Symptoms GI Symptoms None Last BM prior to admission Difficult in: None Food Allergies No Cultural/Ethnic/Episcopal Belief None indicated Usual diet at home unknown Skin Integrity/Comment: Kevin 20 Estimated Nutritional Goals BEE in Kcals: Using Current wt Calories/Kcals/Kg 25-30 kcal/kg using CBW 77.2kg Kcals Calculated 4648-9564 kcal/day Protein: Using Current wt Protein g/k.8-1 gm/kg Protein Calculated 60-75 gm/day Fluid: ml 7309-6178 ml/day (1 ml/kcal) Nutritional Problem 1. Problem Problem Altered nutrition related lab values related to Etiology uncontrolled hyperglycemia aeb Signs/Symptoms: glucose 294 on admission Intervention/Recommendation Comments 1. Continue 60 gm CCHO diet as tolerated. Patient to fill out menu the day before to choose his meal preferences. 2. Will attempt DM Diet education at follow up. 3. MD to modify insulin regimen as needed for optimal glycemic control. Expected Outcomes/Goals Expected Outcomes/Goals oral intake >75% Of meals, weight stable or trend toward IBW, glucose/nutrition related labs jerry. F/U As MR 02/08-
--- NOTE | 2018-02-16 00:37 | Progress Notes ---
DATE: 02/15/2018 SUBJECTIVE: Staff was spoken to. The patient is interviewed. Mood is noted to be anxious. 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 No side effects to the medications are noted at this time. The patient has been able to tolerate the antidepressant medication, Lexapro and the patient has been placed on the Seroquel for his paranoia and impulsivity which is being given at 25 mg at bedtime and the patient is going to be followed up with the supportive therapy once he is able to be found to have a place for the discharge where the patient is going to be discharged. ASSESSMENT: The patient is stabilizing. PLAN: To continue the patient with the supportive therapy and followup. JOB# [id number]
[2018-02-16] MEDS: INSULIN ASPART SLIDING SCALE 100 UNITS/ML UNIT SUBQ SCH ×2 (06:46→12:19)
[2018-02-16] MEDS: Aspirin 81mg Chewable Tab PO SCH (08:46)
[2018-02-16] MEDS: Escitalopram Oxalate 5 mg Tab PO SCH (08:47)
[2018-02-16] MEDS: Pantoprazole 40 mg EC Tab PO SCH (08:48)
[2018-02-16] MEDS: Multivitamin w/ Minerals Tab PO SCH (08:48)
--- NOTE | 2018-02-16 09:11 | General Progress Note ---
Subjective - Review of Systems Events since last encounter: patient awake alert anxious denies pain Objective - Results Result Diagrams: 02/04/18 19:02 02/04/18 19: Recent Labs: Laboratory Last Values WBC 7.9 Th/cmm (4.8-10.8) 02/04/18 19: RBC 4.48 Mil/cmm (4.30-5.70) 02/04/18 19: Hgb 13.6 gm/dL (12-16) 02/04/18 19:02 Hct 40.2 % (41.0-60) L 02/04/18 19: MCV 89.7 fl (80-99) 02/04/18 19: MCH 30.2 pg (26.0-30.0) H 02/04/18 19: MCHC Differential 33.7 pg (28.0-36.0) 02/04/18 19: RDW 12.8 % (11.5-20.0) 02/04/18: Plt Count 343 Th/cmm (150-400) 02/04/18 19:02 MPV 7.2 fl 02/04/18 19:02 Neutrophils % 49.2 % (40.0-80.0) 02/04/18 19: Lymphocytes % 40.5 % (20.0-50.0) 02/04/18 19: Monocytes % 8.0 % (2.0-10.0) 02/04/18 19: Eosinophils % 1.5 % (0.0-5.0) 02/04/18 19: Basophils % 0.8 % (0.0-2.0) 02/04/18 19:02 PT 10.0 SECONDS (9.5-11.5) 02/04/18 19:02 INR 0.96 (0.5-1.4) 02/04/18 19:02 PTT (Actin FS) 23.1 SECONDS (26.0-38.0) L 02/04/18 19:02 Sodium 135 mEq/L (136-145) L 02/04/18 19:02 Potassium 4.4 mEq/L (3.5-5.1) 02/04/18 19:02 Chloride 99 mEq/L (98-107) 02/04/18 19:02 Carbon Dioxide 29.8 mEq/L (21.0-31.0) 02/04/18 19:02 Anion Gap 10.6 (7.0-16.0) 02/04/18 19:02 BUN 18 mg/dL (7-25) 02/04/18 19:02 Creatinine 0.9 mg/dL (0.7-1.3) 02/04/18 19:02 Est GFR ( Amer) > 60.0 ml/min (>90) 02/04/18 19:02 Est GFR (Non-Af Amer) > 60.0 ml/min 02/04/18 19:02 BUN/Creatinine Ratio 20.0 02/04/18 19:02 Glucose 294 mg/dL (70-105) H 02/04/18 19:02 POC Glucose 162 MG/DL (70 - 105) H 02/15/18 17:03 Hemoglobin A1c % 7.3 % (4.0-6.0) H 02/04/18 19:02 Calcium 9.6 mg/dL (8.6-10.3) 02/04/18 19:02 Magnesium 1.7 mg/dL (1.9-2.7) L 02/04/18 19:02 Total Bilirubin 0.4 mg/dL (0.3-1.0) 02/04/18 19:02 AST 9 U/L (13-39) L 02/04/18 19:02 ALT 10 U/L (7-52) 02/04/18 19:02 Alkaline Phosphatase 61 U/L (34-104) 02/04/18 19:02 Troponin I < 0.01 ng/mL (0.01-0.05) L 02/04/18 19:02 B-Natriuretic Peptide < 5.0 pg/mL (5.0-100.0) L 02/04/18 19:02 Total Protein 6.8 gm/dL (6.0-8.3) 02/04/18 19:02 Albumin 4.4 gm/dL (4.2-5.5) 02/04/18 19:02 Globulin 2.4 gm/dL 02/04/18 19:02 Albumin/Globulin Ratio 1.8 (1.0-1.8) 02/04/18 19:02 Urine Source RANDOM 02/05/18 00:00 Urine Color YELLOW 02/05/18 00:00 Urine Clarity CLEAR (CLEAR) 02/05/18 00:00 Urine pH 5.5 (4.6 - 8.0) 02/05/18 00:00 Ur Specific [place] 1.020 (1.005-1.030) 02/05/18 00:00 Urine Protein TRACE mg/dL (NEGATIVE) 02/05/18 00:00 Urine Glucose (UA) >=1000 mg/dL (NEGATIVE) H 02/05/18 00:00 Urine Ketones NEGATIVE mg/dL (NEGATIVE) 02/05/18 00:00 Urine Blood NEGATIVE (NEGATIVE) 02/05/18 00:00 Urine Nitrate NEGATIVE (NEGATIVE) 02/05/18 00:00 Urine Bilirubin NEGATIVE (NEGATIVE) 02/05/18 00:00 Urine Urobilinogen 0.2 E.U./dL (0.2 - 1.0) 02/05/18 00:00 Ur Leukocyte Esterase NEGATIVE (NEGATIVE) 02/05/18 00:00 Urine RBC NONE SEEN /hpf (0-5) 02/05/18 00:00 Urine WBC NONE SEEN /hpf (0-5) 02/05/18 00:00 Ur Epithelial Cells NONE SEEN /lpf (FEW) 02/05/18 00:00 Urine Bacteria NONE SEEN /hpf (NONE SEEN) 02/05/18 00:00 RPR NONREACTIVE (NONREACTIVE) 02/04/18 19:02 - Physical Exam Vitals and I&O: Vital Signs Temp 97.9 F 02/16/18 06:55 Pulse 90 02/16/18 06:55 Resp 18 02/16/18 06:55 BP 126/65 02/16/18 06:55 Pulse Ox 95 02/16/18 06:55 Intake & Output 02/15/18 02/16/18 02/16/18 18:59 06:59 18:59 Intake Total 240 Output Total 900 Balance -900 240 Weight (lbs) 77.111 kg Intake: Oral 240 Output: Urine 900 Stool 0 Other: # Voids 3 # Bowel Movements 0 Weight Source Bedscale Active Medications: Current Medications Ascorbic Acid (Vitamin C) 500 mg PO BID [facility] Stop: 04/06/18 08:59 Last Admin: 02/16/18 08:46 Dose: 500 mg Aspirin (Aspirin Chewable) 81 mg PO DAILY [facility] Stop: 04/06/18 08:59 Last Admin: 02/16/18 08:46 Dose: 81 mg Calcium Carbonate (Os-Colten) 500 mg PO DAILY [facility] Stop: 04/06/18 08:59 Last Admin: 02/16/18 08:47 Dose: 500 mg Cholecalciferol (Vitamin D3) 2,000 iu PO DAILY [facility] Stop: 04/06/18 08:59 Last Admin: 02/16/18 08:47 Dose: 2,000 iu Dextrose (D50w) 50 ml IVP PRN PRN; Protocol PRN Reason: HYPOGLYCEMIA Stop: 04/06/18 05:08 Escitalopram Oxalate (Lexapro) 10 mg PO DAILY [facility]; Protocol Stop: 04/14/18 08:59 Last Admin: 02/16/18 08:47 Dose: 10 mg Insulin Aspart (Novolog Insulin Sliding Scale) 0 units SUBQ [facility]; Protocol Stop: 04/06/18 07:29 Last Admin: 02/16/18 06:46 Dose: 2 units Metformin HCl (Glucophage) 500 mg PO BID [facility] Stop: 04/06/18 08:59 Last Admin: 02/16/18 08:48 Dose: 500 mg Pantoprazole Sodium (Protonix) 40 mg PO Q12HR [facility] Stop: 04/09/18 20:59 Last Admin: 02/16/18 08:48 Dose: 40 mg Quetiapine Fumarate (Seroquel) 25 mg PO HS [facility]; Protocol Stop: 04/16/18 20:59 Last Admin: 02/15/18 21:04 Dose: 25 mg Simvastatin (Zocor) 10 mg PO HS [facility]; Protocol Stop: 04/06/18 20:59 Last Admin: 02/15/18 21:04 Dose: 10 mg General: No acute distress HEENT: Atraumatic Neck: Supple Cardiovascular: Regular rate, Normal S1, Normal S2 Lungs: Clear to auscultation Assessment/Plan - Problem List Patient Problems: All Active Problems INCREASED AGGRESSION WITH DISRUPTION (Acute) - Plan Plan: as per psych will monitor Nutritional Asmnt/Malnutr-PDOC - Dietary Evaluation Malnutrition Findings (Please click <Entered> for more info): Nutritional Asmnt/Malnutrition Start: 02/05/18 11: 37 Text: Status: Complete Freq: Protocol: Document 02/05/18 11:37 GLORIA (Rec: 02/05/18 11:52 GLORIA [id number]) Nutritional Asmnt/Malnutrition Patient General Information Nutritional Screening High Risk Diagnosis aggressive behavior, psychosis Pertinent Medical Hx/Surgical Hx intellectual disabilities, depression, anxiety, psychosis Subjective Information Patient seen as high risk due to glucose on admission >180. Per nursing notes, lower extremity 2+ non pitting edema . Per nurse, patient is not eating his meals and wants " something he can recognize" to eat. Diet education not appropriate at this time. Current Diet Order/ Nutrition Support 60 gm CCHO Patient / S.O Not Indicated Pertinent Medications vitamin C, OS-colten, vitamin D, D50W @ 50 ml/hr, Novolog, Glucophage Pertinent Labs (02/04) Na 135, GLucose 294, mg 1.7 Nutritional Hx/Data Height 1.73 m Height (Calculated Centimeters) 172.7 Current Weight (lbs) 77.111 kg Weight (Calculated Kilograms) 77.1 Weight (Calculated Grams) 76016.7 [place] Body Weight 154 % [place] Body Weight 110 Body Mass Index (BMI) 25.8 Recent Weight Change No Weight Status Overweight GI Symptoms GI Symptoms None Last BM prior to admission Difficult in: None Food Allergies No Cultural/Ethnic/Advent Belief None indicated Usual diet at home unknown Skin Integrity/Comment: Kevin 20 Estimated Nutritional Goals BEE in Kcals: Using Current wt Calories/Kcals/Kg 25-30 kcal/kg using CBW 77.2kg Kcals Calculated 2263-9430 kcal/day Protein: Using Current wt Protein g/k.8-1 gm/kg Protein Calculated 60-75 gm/day Fluid: ml 0595-2302 ml/day (1 ml/kcal) Nutritional Problem 1. Problem Problem Altered nutrition related lab values related to Etiology uncontrolled hyperglycemia aeb Signs/Symptoms: glucose 294 on admission Intervention/Recommendation Comments 1. Continue 60 gm CCHO diet as tolerated. Patient to fill out menu the day before to choose his meal preferences. 2. Will attempt DM Diet education at follow up. 3. MD to modify insulin regimen as needed for optimal glycemic control. Expected Outcomes/Goals Expected Outcomes/Goals oral intake >75% Of meals, weight stable or trend toward IBW, glucose/nutrition related labs noramlize. F/U As MR 02/08-
--- NOTE | 2018-02-16 19:58 | Progress Notes ---
DATE: 02/16/2018 SUBJECTIVE: Staff was spoken to. The patient is interviewed. Mood is noted to be anxious. Affect is appropriate. Not suicidal or homicidal. Coping skills are noted to be improving. No major side effects to the medications are noted. sales office manager has been able to secure placement. ASSESSMENT: The patient is stabilizing. PLAN: To discharge the patient today for followup on outpatient basis. [facility]# [id number]
--- NOTE | 2018-02-20 11:33 | Discharge Summary ---
DATE OF DISCHARGE: 02/16/2018 IDENTIFYING DATA: The patient is a 57-year-old male resident of the [facility]. Information obtained by directly interviewing the patient as well as reviewing the admission papers. JUSTIFICATION FOR HOSPITALIZATION: The patient is admitted here for depression and disruptive behavior. CHIEF COMPLAINT: "I'm feeling depressed." DIAGNOSES AT THE TIME OF ADMISSION: AXIS I: 1. Depressive disorder, not otherwise specified. 2. Rule out psychosis. AXIS II: None. AXIS III: As per Dr. Dunbar. HISTORY OF PRESENT ILLNESS: Please review the 02/05/2018 dictation done by me. Physical examination was done by ____ nurse practitioner for Dr. Dunbar and is noted to be significant for diabetes and vitamin D deficiency and osteoarthritis. Blood work has been reviewed by Dr. Dunbar. HOSPITAL COURSE AND RESPONSE TO TREATMENT: The patient has been placed on the metformin for his sugar problems and simvastatin was given for cholesterol and the patient has been placed on the escitalopram, which was given 5 mg and was gradually increased to 10 mg and the Seroquel was given 25 mg at bedtime. With these medications, the patient has been observed and was noted to be doing fairly well. The patient was finally discharged to [place] with recommendation that he is going to be seeking treatment on an outpatient basis. MENTAL STATUS EXAMINATION: At the time of discharge, the patient's mood is noted to be anxious. Affect is appropriate. Not suicidal or homicidal. Insight and judgment are noted to be fair. Impulse control is also noted to be fair. The patient is not noted to be suicidal or homicidal at the time of discharge. CONDITION AT THE TIME OF DISCHARGE: Noted to be stable. DIAGNOSES AT THE TIME OF DISCHARGE: AXIS I: Major depressive disorder, first episode and moderate. AXIS II: None. AXIS III: Hypercholesterolemia, diabetes mellitus, osteoarthritis, and vitamin D deficiency. AFTERCARE PLAN: The patient is referred to [place] for further followup. JOB# [id number]
== END 2018-02-16 13:15 | DRG 885 ==
LOC: ER 18:36 → GERO2 19:50
PROVIDERS: ADMIT Psychiatry & Neurology Psychiatry; ATTEND Psychiatry & Neurology Psychiatry
DX: F29 Unspecified psychosis not due to a substance or known physiological condition (principal); E87.1 Hypo-osmolality and hyponatremia; F32.9 Major depressive disorder, single episode, unspecified; E11.9 Type 2 diabetes mellitus without complications; M19.90 Unspecified osteoarthritis, unspecified site; E55.9 Vitamin D deficiency, unspecified; E78.5 Hyperlipidemia, unspecified; Z88.8 Allergy status to other drugs, medicaments and biological substances
CPT/HCPCS: 36415-UA; 71045-TC; 71250-TC; 80053-TC; 81001-TC; 82948-90; 83036-90; 83735-TC; 83880-TC; 84484-TC; 85025-TC; 85610-TC; 86592-TC; 93005; 97530; G0410; J1815; X3904; Z7610

== ENCOUNTER 2018-04-03 23:30 | Inpatient (IN) | payer MEDICARE ==
--- NOTE | 2018-04-04 00:08 | ED Physician Chart ---
ED Chief Complaint/HPI - Patient Information Date Seen:: 04/04/18 Time Seen:: 12:40 Chief Complaint:: lt foot ulcer History of Present Illness:: 57 yr old male from custodial [facility] here for lt foot non healing ulcerand complications Allergies:: Allergies Allergy/AdvReac Type Severity Reaction Status Date / Time lisinopril Allergy Verified 04/03/18 23:51 Vitals:: Vital Signs - 8 hr 04/03/18 23:35 Temp 98.1 F HR 88 RR 16 BP 120/78 O2 Sat % 98 ED Review of Systems - Review of Systems General/Constitutional: No fever Skin: Skin lesions (two ulcers lt big toe and midfoot) Head: No headache Eyes: No loss of vision ENT: No earache Neck: No neck pain Cardio Vascular: No chest pain Pulmonary: No SOB GI: No nausea, No vomiting G/U: No dysuria Psychiatric: No prior psych history, No suicidal ideation Hematopoietic: No bruising Allergic/Immuno: No urticaria Neurological: No syncope ED Past Medical History - Past Medical History Past Medical History: HTN, DM, CAD, Dyslipidemia, PUD/GERD, Arthritis, Other ( psychosis) Family Medical History - Family Member Mother History Unknown: Yes Ethnicity: Unknown Living Status: Unknown Hx Family Cancer: No Hx Family Coronary Artery Disease: No Hx Family Congestive Heart Failure: No Hx Family Hypertension: No Hx Family Stroke: No Hx Family Diabetes: No Hx Family Seizures: No Hx Family Dementia: No Hx Family AIDS: No Hx Family HIV: No Hx Family COPD: No Hx Family Hepatitis: No Hx Family Psychiatric Problems: No Hx Family Tuberculosis: No ED Physical Exam - Physical Examination General/Constitutional: Well-developed, well-nourished Head: Atraumatic Eyes: Lids, conjuctiva normal Skin: Nl inspection ENMT: External ears, nose nl Neck: Nontender Respiratory: Nl effort/Exclusion Cardio Vascular: No murmur, gallop, rubs GI: No organomegaly : No CVA tenderness Other Extremities comments:: charcot ankle with deformity and bad results with ulceration around lt big toe and lt ankle severely affected ED Assessment - Assessment General Assessment: diabetic foot ulcer non heaing and charcot ankle joint severe Critical Care Time: 35 mins Excludes all billable procedures: Yes This condition life threatening/high prob of deterioration: Yes - Procedures Informed Consent: Procedure/risk/benefits explained by MD: No Laceration Type:: None Inspection: No dirt/debris Post Procedure/Splint Exam: No Active Bleeding ED Septic Shock - . Is Septic Shock (SBP<90, OR Lactate>4 mmol\L) present?: No - <6hrs of presentation: Vital Signs: Vital Signs - 8 hr 04/03/18 23:35 Temp 98.1 F HR 88 RR 16 BP 120/78 O2 Sat % 98 ED Reassessment (Disposition) - Reassessment Reassessment Condition:: Unchanged - Diagnosis Diagnosis:: charcots joint lt ankle and non healing ESBL ULCER WOUNDS - Patient Disposition Discharge/Transfer:: Acute Care w/in this hosp
[2018-04-04] MEDS ORDERED: Albuterol/Ipratropium Neb 3 ML AERS HHN ONE (00:22)
[2018-04-04] MEDS ORDERED: Dexamethasone Sodium Phos 4 mg/mL Vial INH STA (00:23)
[2018-04-04 00:31] LABS: % BASOPHILS 0.5 % (0.0-2.0); % EOSINOPHILS 1.5 % (0.0-5.0); % LYMPHOCYTES 42.1 % (20.0-50.0); % MONOCYTES 7.2 % (2.0-10.0); % NEUTROPHILS 48.7 % (40.0-80.0); EOSINOPHILE ABSOLUTE 0.1 Th/cmm (0.1-0.4); HEMATOCRIT 35.5 % (41.0-60); HEMOGLOBIN 11.9 gm/dL (12-16); MEAN CELL VOLUME 88.2 fl (80-99); MEAN CORPUSCULAR HEMOGLOBIN 29.5 pg (26.0-30.0); MEAN CORPUSCULAR HGB CONC 33.5 pg (28.0-36.0); MEAN PLATELET VOLUME 7.5 fl; MONOCYTE ABSOLUTE 0.7 Th/cmm (0.3-1.0); NEUTROPHILE ABSOLUTE 4.8 Th/cmm (1.8-8.0); PLATELET COUNT 388 Th/cmm (150-400); RED BLOOD COUNT 4.02 Mil/cmm (4.30-5.70); RED CELL DISTRIBUTION WIDTH 12.1 % (11.5-20.0); WHITE BLOOD COUNT 9.6 Th/cmm (4.8-10.8)
[2018-04-04 00:50] LABS: ALB/GLOB RATIO 1.3 (1.0-1.8); ALBUMIN 3.7 gm/dL (4.2-5.5); ALKALINE PHOSPHATASE 60 U/L (34-104); ANION GAP 11.1 (7.0-16.0); BILIRUBIN,TOTAL 0.3 mg/dL (0.3-1.0); BUN - UREA NITROGEN 20 mg/dL (7-25); CALCIUM SERUM 9.2 mg/dL (8.6-10.3); CARBON DIOXIDE 25.3 mEq/L (21.0-31.0); CHLORIDE 102 mEq/L (98-107); CREATININE - SERUM 0.8 mg/dL (0.7-1.3); GFR AFRICAN-AMERICAN > 60.0 ml/min (>90); GFR NON AFRICAN-AMERICAN > 60.0 ml/min; GLUCOSE 221 mg/dL (70-105); POTASSIUM SERUM 3.4 mEq/L (3.5-5.1); SGOT 11 U/L (13-39); SGPT/ALT 8 U/L (7-52); SODIUM SERUM 135 mEq/L (136-145); TOTAL PROTEIN,SERUM 6.5 gm/dL (6.0-8.3)
[2018-04-04] MEDS ORDERED: Piperacillin Sodium/Tazobact 3.375 gm Vial IV ONE (02:11)
[2018-04-04] MEDS ORDERED: Pneumococcal Vaccine 0.5 mL Vial IM ONE (03:13)
[2018-04-04] MEDS: Sodium Chloride 0.45% 1,000 ML IV SCH (05:47)
[2018-04-04 08:20] LABS: % BASOPHILS 0.3 % (0.0-2.0); % EOSINOPHILS 1.5 % (0.0-5.0); % LYMPHOCYTES 34.4 % (20.0-50.0); % MONOCYTES 7.2 % (2.0-10.0); % NEUTROPHILS 56.6 % (40.0-80.0); EOSINOPHILE ABSOLUTE 0.1 Th/cmm (0.1-0.4); HEMATOCRIT 34.9 % (41.0-60); HEMOGLOBIN 11.7 gm/dL (12-16); MEAN CELL VOLUME 88.2 fl (80-99); MEAN CORPUSCULAR HEMOGLOBIN 29.4 pg (26.0-30.0); MEAN CORPUSCULAR HGB CONC 33.4 pg (28.0-36.0); MEAN PLATELET VOLUME 7.3 fl; MONOCYTE ABSOLUTE 0.6 Th/cmm (0.3-1.0); PLATELET COUNT 375 Th/cmm (150-400); RED BLOOD COUNT 3.96 Mil/cmm (4.30-5.70); RED CELL DISTRIBUTION WIDTH 12.3 % (11.5-20.0); WHITE BLOOD COUNT 8.7 Th/cmm (4.8-10.8)
[2018-04-04 08:36] LABS: ANION GAP 10.9 (7.0-16.0); BUN - UREA NITROGEN 18 mg/dL (7-25); CARBON DIOXIDE 24.8 mEq/L (21.0-31.0); CHLORIDE 103 mEq/L (98-107); CREATININE - SERUM 0.9 mg/dL (0.7-1.3); GFR AFRICAN-AMERICAN > 60.0 ml/min (>90); GFR NON AFRICAN-AMERICAN > 60.0 ml/min; GLUCOSE 250 mg/dL (70-105); POTASSIUM SERUM 3.7 mEq/L (3.5-5.1); SODIUM SERUM 135 mEq/L (136-145)
[2018-04-04] MEDS ORDERED: Acetaminophen 500 MG TAB PO PRN (08:39)
[2018-04-04] MEDS ORDERED: Fleet Enema 135 mL RC PRN (08:39)
--- NOTE | 2018-04-04 09:10 | General Progress Note ---
Subjective - Review of Systems Service Date: 03/04/18 Events since last encounter: chronic ulcer left foot, charcot foot able to ambulate? MRI for osteo ordered Objective - Results Result Diagrams: 04/04/18 07:50 04/04/18 07:50 Recent Labs: Laboratory Last Values WBC 8.7 Th/cmm (4.8-10.8) 04/04/18 07:50 RBC 3.96 Mil/cmm (4.30-5.70) L 04/04/18 07:50 Hgb 11.7 gm/dL (12-16) L 04/04/18 07:50 Hct 34.9 % (41.0-60) L 04/04/18 07:50 MCV 88.2 fl (80-99) 04/04/18 07:50 MCH 29.4 pg (26.0-30.0) 04/04/18 07:50 MCHC Differential 33.4 pg (28.0-36.0) 04/04/18 07:50 RDW 12.3 % (11.5-20.0) 04/04/18 07:50 Plt Count 375 Th/cmm (150-400) 04/04/18 07:50 MPV 7.3 fl 04/04/18 07:50 Neutrophils % 56.6 % (40.0-80.0) 04/04/18 07:50 Lymphocytes % 34.4 % (20.0-50.0) 04/04/18 07:50 Monocytes % 7.2 % (2.0-10.0) 04/04/18 07:50 Eosinophils % 1.5 % (0.0-5.0) 04/04/18 07:50 Basophils % 0.3 % (0.0-2.0) 04/04/18 07:50 Sodium 135 mEq/L (136-145) L 04/04/18 07:50 Potassium 3.7 mEq/L (3.5-5.1) 04/04/18 07:50 Chloride 103 mEq/L (98-107) 04/04/18 07:50 Carbon Dioxide 24.8 mEq/L (21.0-31.0) 04/04/18 07:50 Anion Gap 10.9 (7.0-16.0) 04/04/18 07:50 BUN 18 mg/dL (7-25) 04/04/18 07:50 Creatinine 0.9 mg/dL (0.7-1.3) 04/04/18 07:50 Est GFR ( Amer) > 60.0 ml/min (>90) 04/04/18 07:50 Est GFR (Non-Af Amer) > 60.0 ml/min 04/04/18 07:50 BUN/Creatinine Ratio 20.0 04/04/18 07:50 Glucose 250 mg/dL (70-105) H 04/04/18 07:50 POC Glucose 251 MG/DL (70 - 105) H 04/04/18 06:39 Whole Bld Lactic Acid 1.32 mmol/L (0.60-1.99) 04/04/18 00:15 Calcium 9.0 mg/dL (8.6-10.3) 04/04/18 07:50 Total Bilirubin 0.3 mg/dL (0.3-1.0) 04/04/18 00:15 AST 11 U/L (13-39) L 04/04/18 00:15 ALT 8 U/L (7-52) 04/04/18 00:15 Alkaline Phosphatase 60 U/L (34-104) 04/04/18 00:15 Total Protein 6.5 gm/dL (6.0-8.3) 04/04/18 00:15 Albumin 3.7 gm/dL (4.2-5.5) L 04/04/18 00:15 Globulin 2.8 gm/dL 04/04/18 00:15 Albumin/Globulin Ratio 1.3 (1.0-1.8) 04/04/18 00:15 - Physical Exam Vitals and I&O: Vital Signs Temp 97.7 F 04/04/18 04:00 Pulse 85 04/04/18 04:00 Resp 18 04/04/18 04:00 BP 119/80 04/04/18 04:00 Pulse Ox 98 04/04/18 04:00 Intake & Output 04/03/18 04/04/18 04/04/18 18:59 06:59 18:59 Weight (lbs) 79.379 kg 79.379 kg Other: Weight Source Bedscale Bedscale Active Medications: Current Medications Acetaminophen (Tylenol) 650 mg PO Q4H PRN PRN Reason: Pain or Fever >101 Stop: 06/03/18 08:38 Acetaminophen (Tylenol Extra Strength) 1,000 mg PO Q4H PRN PRN Reason: Pain (Severe) Stop: 06/03/18 08:38 Bisacodyl (Dulcolax 10 Mg Supp) 10 mg RC DAILY PRN PRN Reason: Constipation Stop: 06/03/18 08:38 Calcium/Vitamin D (Oscal W/Vitamin D) 1 tab PO DAILY [facility] Stop: 06/03/18 08:59 Docusate Sodium (Colace) 100 mg PO BID [facility] Stop: 06/03/18 08:59 Donepezil HCl (Aricept) 10 mg PO HS [facility] Stop: 06/03/18 20:59 Sodium Chloride (Nacl 0.45%) 1,000 mls @ 75 mls/hr IV .[id number] [facility] Stop: 06/03/18 01:41 Last Admin: 04/04/18 05:47 Dose: 75 mls/hr Vancomycin HCl 1.5 gm/ Sodium (Chloride) 500 mls @ 165 mls/hr IV Q12H [facility] Stop: 06/03/18 13:59 Piperacillin Sod/Tazobactam (Sod 3.375 gm/ Sodium Chloride) 50 mls @ 100 mls/ hr IV Q8H [facility] Stop: 06/03/18 01:59 Last Admin: 04/04/18 02:30 Dose: 100 mls/hr Insulin Aspart (Novolog Insulin Sliding Scale) 0 units SUBQ [facility]S [facility]; Protocol Stop: 06/03/18 11:29 Magnesium Hydroxide (Milk Of Magnesia) 30 ml PO HS PRN PRN Reason: Constipation Stop: 06/03/18 20:59 Megestrol Acetate (Megace) 400 mg PO DAILY [facility] Stop: 06/03/18 08:59 Metformin HCl (Glucophage) 500 mg PO BIDWM [facility] Stop: 06/03/18 08:59 Miscellaneous (Argin/Glut/Cahmb/Collag/Mv-Min [Zander Packet]) 1 each PO BID [facility] Stop: 06/03/18 08:59 Miscellaneous (Cranberry Fruit Extract [Cranberry]) 425 mg PO DAILY [facility] Stop: 06/03/18 08:59 Miscellaneous (Zinc Sulfate [Zinc Sulfate]) 220 mg PO DAILY [facility] Stop: 06/03/18 08:59 Pantoprazole Sodium (Protonix) 40 mg PO Q12HR [facility] Stop: 06/03/18 08:59 Simvastatin (Zocor) 10 mg PO HS [facility]; Protocol Stop: 06/03/18 20:59 Sodium Phosphate (Fleet Enema) 135 ml RC Q48H PRN PRN Reason: Constipation Stop: 06/03/18 08:38
[2018-04-04] MEDS: Calcium Carb/Vit D 500 mg/200 U Tab PO SCH (10:11)
[2018-04-04] MEDS: Non-Formulary Item 1 EA (Argin/Glut/Cahmb/Collag/Mv-Min [Juven Packet] 1 EACH) PO SCH ×2 (10:11→17:33)
[2018-04-04] MEDS: Non-Formulary Item 1 EA (Cranberry Fruit Extract [Cranberry] 425 MG) PO SCH (10:12)
[2018-04-04] MEDS ORDERED: VTE Chemical Prophylaxis Screen/Admission MC PRN ×2 (12:02→12:06)
--- NOTE | 2018-04-04 12:09 | Diagnostic Imaging Report ---
Exam: Left foot HISTORY osteomyelitis. Findings: Multiple views of the left foot portably at 1148 reviewed demonstrates severe deformity of left foot. There is no evidence for osteomyelitis involvement. Soft tissue swelling suggestive of cellulitis. There is a valgus deformity of the left foot. IMPRESSION: Soft tissue swelling suggestive of cellulitis No evidence for osteomyelitic involvement of the left foot. Severe left foot deformity.
[2018-04-04] MEDS: Pantoprazole 40 mg EC Tab PO SCH ×2 (12:28→17:00)
[2018-04-04] MEDS: INSULIN ASPART SLIDING SCALE 100 UNITS/ML UNIT SUBQ SCH ×3 (12:28→20:52)
--- NOTE | 2018-04-04 12:51 | History & Physical ---
ADMIT DATE: 04/04/2018 HISTORY OF PRESENT ILLNESS: A 57-year-old male patient. The patient is known to have history of underlying psychosis and also has functional paresis of bilateral lower extremities and ulcerated wounds and the patient has skin lesions on the big toe as well as the mid foot and also in the back and the patient is a resident of ____. Apparently, the patient had infection and ESBL positive for his wound and the patient was having fever, not doing good, was evaluated in the [facility] Emergency Room and was admitted for further treatment of his ulcerations and possible sepsis. The patient had no fever now, no earache, no headache, no chest pain, no bruising. The patient has prior history of psych problem and psychosis. The patient has a history of hypertension, diabetes, coronary artery disease, hyperlipidemia, GERD and arthritis. PHYSICAL EXAMINATION: HEAD: Normal. ENT: Normal. NECK: Supple, nontender. LUNGS: Clear. EXTREMITIES: Bilateral lower extremity weakness, Charcot ankle and deformity and big toe as well as ankle severely affected and he has ulcerations. ASSESSMENT: The diagnoses of acute ulcerations, extended-spectrum beta-lactamase ulcers and wounds, Charcot joints, history of functional paraparesis and history of psychosis, history of hypertension, diabetes, coronary artery disease, hyperlipidemia, gastroesophageal reflux disease, arthritis was made. PLAN: The patient is being admitted. I will go ahead and give him antibiotics and I will have Dr. Juarez see the patient for his diabetic ulceration to see whether the patient needs any debridement. JOB# [id number]
[2018-04-04] MEDS ORDERED: Probiotic Screen MC PRN (12:59)
--- NOTE | 2018-04-04 13:25 | Consultation ---
Consult Note - Consult Note Service Date: 04/04/18 Referring Physician: Josey Dunbar Consult Note: PHYSICIAN Consultation Note: Date of Admission: 04/04/18 Purpose of Consultation: Chief Complaint: Patient ROGERIO CORTEZ was admitted to location Medical/ Surgical Unit I with ESBL OF FOOT ULCERS. History of Present Illness: 57 year male with a past medical history of diabetes mellitus type 2, hypertension, coronary artery disease, hyperlipidemia, GERD, arthritis and psychosis admitted to the hospital for infected wounds of left midfoot and left great toe and also in the back. Wound culture (04/02/2018) grew ESBL positive E coli and MRSA organism. Besides this patient also had developed fever. On initial evaluation, temperature is 98.1F and WBC count was 9600. Zosyn was started and ID consult was called for antibiotic management. Past Medical History: Diabetes mellitus type 2, hypertension, coronary artery disease, hyperlipidemia, GERD, arthritis and psychosis Allergies Allergy/AdvReac Type Severity Reaction Status Date / Time lisinopril Allergy Verified 04/03/18 23:51 Vital Signs Temp 97.2 F 04/04/18 11:50 Pulse 81 04/04/18 11:50 Resp 18 04/04/18 11:50 BP 113/71 04/04/18 11:50 Pulse Ox 94 04/04/18 11:50 Intake & Output 04/03/18 04/04/18 04/04/18 18:59 06:59 18:59 Intake Total 50 Balance 50 Weight (lbs) 79.379 kg 79.379 kg Intake: Intake, IV Amount 50 Piperacillin Sodium/ 50 Tazobact 3.375 gm In Sodium Chloride 0.9% 50 ml @ 100 mls/hr IV Q8H [facility] Rx#:[id number] Other: Weight Source [facility] Laboratory Results - last 24 hr 04/04/18 04/04/18 04/04/18 00:15 00:15 00:15 WBC 9.6 RBC 4.02 L Hgb 11.9 L Hct 35.5 L MCV 88.2 MCH 29.5 MCHC Differential 33.5 RDW 12.1 Plt Count 388 MPV 7.5 Neutrophils % 48.7 Lymphocytes % 42.1 Monocytes % 7.2 Eosinophils % 1.5 Basophils % 0.5 Sodium 135 L Potassium 3.4 L Chloride 102 Carbon Dioxide 25.3 Anion Gap 11.1 BUN 20 Creatinine 0.8 Est GFR ( Amer) > 60.0 Est GFR (Non-Af Amer) > 60.0 BUN/Creatinine Ratio 25.0 Glucose 221 H POC Glucose Whole Bld Lactic Acid 1.32 Calcium 9.2 Total Bilirubin 0.3 AST 11 L ALT 8 Alkaline Phosphatase 60 Total Protein 6.5 Albumin 3.7 L Globulin 2.8 Albumin/Globulin Ratio 1.3 04/04/18 04/04/18 04/04/18 01:13 06:39 07:50 WBC 8.7 RBC 3.96 L Hgb 11.7 L Hct 34.9 L MCV 88.2 MCH 29.4 MCHC Differential 33.4 RDW 12.3 Plt Count 375 MPV 7.3 Neutrophils % 56.6 Lymphocytes % 34.4 Monocytes % 7.2 Eosinophils % 1.5 Basophils % 0.3 Sodium Potassium Chloride Carbon Dioxide Anion Gap BUN Creatinine Est GFR ( Amer) Est GFR (Non-Af Amer) BUN/Creatinine Ratio Glucose POC Glucose 247 H 251 H Whole Bld Lactic Acid Calcium Total Bilirubin AST ALT Alkaline Phosphatase Total Protein Albumin Globulin Albumin/Globulin Ratio 04/04/18 04/04/18 07:50 12:17 WBC RBC Hgb Hct MCV MCH MCHC Differential RDW Plt Count MPV Neutrophils % Lymphocytes % Monocytes % Eosinophils % Basophils % Sodium 135 L Potassium 3.7 Chloride 103 Carbon Dioxide 24.8 Anion Gap 10.9 BUN 18 Creatinine 0.9 Est GFR ( Amer) > 60.0 Est GFR (Non-Af Amer) > 60.0 BUN/Creatinine Ratio 20.0 Glucose 250 H POC Glucose 216 H Whole Bld Lactic Acid Calcium 9.0 Total Bilirubin AST ALT Alkaline Phosphatase Total Protein Albumin Globulin Albumin/Globulin Ratio Home Medication Medication Instructions Recorded Type Simvastatin [Zocor] 10 mg PO HS 02/04/18 History metFORMIN [Glucophage] 500 mg PO BID 02/04/18 History Insulin Aspart Sliding Scale See Protocol SUBQ ACHS unit 02/16/18 Rx [NovoLOG INSULIN SLIDING SCALE] Pantoprazole [Protonix] 40 mg PO Q12HR ect 02/16/18 Rx Acetaminophen [Tylenol Extra 1,000 mg PO Q4HR PRN 04/04/18 History Strength] Acetaminophen [Tylenol] 650 mg PO Q4HR PRN 04/04/18 History Argin/Glut/Cahmb/Collag/Mv-Min 1 each PO BID 04/04/18 History [Zander Packet] Bisacodyl [Dulcolax 10 Mg Supp] 10 mg RC DAILY PRN 04/04/18 History Calcium Carbonate/Vitamin D3 1 each PO DAILY 04/04/18 History [Calcium 500-Vit D3 200 Caplet] Cephalexin [Keflex] 500 mg PO QID 04/04/18 History Clonidine HCl [Catapres] 0.1 mg PO Q4HR PRN 04/04/18 History Cranberry Fruit Extract [Cranberry] 425 mg PO DAILY 04/04/18 History Docusate Sodium [Colace] 100 mg PO BID 04/04/18 History Donepezil Hcl [Aricept] 10 mg PO HS 04/04/18 History Fleet Enema 1 dose RC Q48HR PRN 04/04/18 History Magnesium Hydroxide [Milk of 30 ml PO HS PRN 04/04/18 History Magnesia] Megestrol Acetate 10 ml PO DAILY 04/04/18 History Zinc Sulfate 220 mg PO DAILY 04/04/18 History Current Medications Generic Name Dose Route Start Last Admin Trade Name Freq PRN Reason Stop Dose Admin Acetaminophen 650 mg 04/04/18 08:39 Tylenol PO 06/03/18 08:38 Q4H PRN Pain or Fever >101 Acetaminophen 1,000 mg 04/04/18 08:39 Tylenol Extra Strength PO 06/03/18 08:38 Q4H PRN Pain (Severe) Bisacodyl 10 mg 04/04/18 08:39 Dulcolax 10 Mg Supp RC 06/03/18 08:38 DAILY PRN Constipation Calcium/Vitamin D 1 tab 04/04/18 09:00 04/04/18 10:11 Oscal W/Vitamin D PO 06/03/18 08:59 1 tab DAILY RAVIN Administration Docusate Sodium 100 mg 04/04/18 09:00 04/04/18 10:12 Colace PO 06/03/18 08:59 100 mg BID RAVIN Administration Donepezil HCl 10 mg 04/04/18 21:00 Aricept PO 06/03/18 20:59 HS RAVIN Heparin Sodium (Porcine) 5,000 units 04/04/18 21:00 Heparin SUBQ 06/03/18 20:59 Q12HR RAVIN Sodium Chloride 1,000 mls @ 75 mls/hr 04/04/18 01:42 04/04/18 05:47 Nacl 0.45% IV 06/03/18 01:41 75 mls/hr .[id number] RAVIN Administration Vancomycin HCl 1.5 gm/ Sodium 500 mls @ 165 mls/hr 04/04/18 14:00 Chloride IV 06/03/18 13:59 Q12H RAVIN Piperacillin Sod/Tazobactam 50 mls @ 100 mls/hr 04/04/18 02:00 04/04/18 10:00 Sod 3.375 gm/ Sodium Chloride IV 06/03/18 01:59 100 mls/hr Q8H RAVIN Administration Insulin Aspart 0 units 04/04/18 11:30 04/04/18 12:28 Novolog Insulin Sliding Scale SUBQ 06/03/18 11:29 4 units ACHS RAVIN Administration Protocol Lactobacillus Rhamnosus 1 each 04/04/18 14:00 Culturelle 15b PO 06/03/18 13:59 DAILY RAVIN Magnesium Hydroxide 30 ml 04/04/18 21:00 Milk Of Magnesia PO 06/03/18 20:59 HS PRN Constipation Megestrol Acetate 400 mg 04/04/18 09:00 04/04/18 10:10 Megace PO 06/03/18 08:59 400 mg DAILY RAVIN Administration Metformin HCl 500 mg 04/04/18 09:00 04/04/18 12:28 Glucophage PO 06/03/18 08:59 500 mg BIDWM RAVIN Administration Miscellaneous 1 each 04/04/18 09:00 04/04/18 10:11 Argin/Glut/Cahmb/Collag/Mv-Min [Zander Packet] PO 06/03/18 08:59 1 each BID RAVIN Administration Miscellaneous 425 mg 04/04/18 09:00 04/04/18 10:12 Cranberry Fruit Extract [Cranberry] PO 06/03/18 08:59 425 mg DAILY RAVIN Administration Miscellaneous 1 04/04/18 12:02 Vte Chemical Prophylaxis Screen/ Admission 06/03/18 12:01 PRN PRN PROTOCOL Miscellaneous 1 04/04/18 12:06 Vte Chemical Prophylaxis Screen/ Admission 06/03/18 12:05 PRN PRN PROTOCOL Miscellaneous 1 04/04/18 12:59 Probiotic Screen 06/03/18 12:58 PRN PRN PROTOCOL Pantoprazole Sodium 40 mg 04/04/18 11:00 04/04/18 12:28 Protonix PO 06/03/18 10:59 40 mg BIDAC RAVIN Administration Simvastatin 10 mg 04/04/18 21:00 Zocor PO 06/03/18 20:59 HS RAVIN Protocol Sodium Phosphate 135 ml 04/04/18 08:39 Fleet Enema RC 06/03/18 08:38 Q48H PRN Constipation Zinc Sulfate 220 mg 04/04/18 11:00 04/04/18 12:27 Zinc Sulfate PO 06/03/18 10:59 220 mg DAILY RAVIN Administration Review of Systems: A 12 point ROS was reviewed with the pertinent positive and negatives noted in the HPI. Social History Smoking Status Smoker, status unknown Drug Use No Alcohol Use No Family Medical History Noncontributory. Physical Exam: General: Comfortable, not in acute distress. Well-nourished well-developed. HEENT: Head: Normocephalic, atraumatic. Oral cavity: Moist, pink tongue. Eyes : Pupil PERRLA. EOMI. Neck: Supple, no JVD. No use of X his neck muscles. Cardio: S1 and S2 within normal limits regular rhythm no murmur or gallop. Respiratory: Vesicular breath sound. No crackles no wheezing. Abdominal: Soft, nontender nondistended bowel sounds present. Genital/Urinary: Deferred. Extremities: No cyanosis, no clubbing, no edema. Left foot is swollen and has ulcer with well-defined border and mid foot and plantar aspect. There is surrounding erythema. Left weeks so has open ulcer with dry scab on medial aspect. Neurological: Alert, awake, oriented 3. Assessment: 1. Left foot ulcers with cellulitis. 2. Diabetes mellitus type 2. 3. Hypertension. 4. Hyperlipidemia. 5. Coronary artery disease. 6. MRSA infection. 7. ESBL Escherichia coli infection. Plan: Change antibiotic to vancomycin and meropenem. Wound care. Arterial study. Three-phase Bone scan. Thank you, Dr. Dunbar, for involving me in taking care of this patient. Signed, Mark Nation M.D. [id number]
[2018-04-04] MEDS: Meropenem 1 GM in Sodium Chloride 0.9% 100 ML IV SCH ×2 (13:26→22:27)
[2018-04-04] MEDS: Lactobacillus Rhamnosus GG 15 Billion CFU CAP.SPRINK PO SCH (14:00)
--- NOTE | 2018-04-04 15:13 | Diagnostic Imaging Report ---
Left lower extremity Doppler arterial ultrasound exam HISTORY: Peripheral vascular disease, pain Sonographic sector images were obtained through the arterial system of the left leg. Associated Doppler data was obtained. The exam demonstrates triphasic waveforms within the common femoral, superficial femoral, popliteal, and anterior tibial arteries. Biphasic waveforms seen within the posterior tibial artery. Monophasic waveforms noted within the left dorsalis pedis artery. The ankle-brachial index is 1.13. Sonographic images demonstrate mild to moderate diffuse atherosclerotic changes. No occlusion is seen. IMPRESSION: 1. Mild to moderate diffuse atherosclerotic changes somewhat more pronounced within the posterior tibial artery region. No discrete occlusion identified.
[2018-04-04] MEDS: Vancomycin HCl 1.5 GM in Sodium Chloride 0.9% 500 ML IV SCH (17:26)
[2018-04-04] MEDS ORDERED: Magnesium Hydroxide (MOM) 30 mL UDC PO PRN (21:00)
[2018-04-05] MEDS: Vancomycin HCl 1.5 GM in Sodium Chloride 0.9% 500 ML IV SCH ×2 (01:29→17:00)
[2018-04-05] MEDS: Meropenem 1 GM in Sodium Chloride 0.9% 100 ML IV SCH ×3 (06:11→22:52)
[2018-04-05] MEDS: INSULIN ASPART SLIDING SCALE 100 UNITS/ML UNIT SUBQ SCH ×4 (06:47→21:19)
[2018-04-05] MEDS: Pantoprazole 40 mg EC Tab PO SCH ×2 (06:53→16:32)
[2018-04-05 07:17] LABS: VANCOMYCIN TROUGH 30.4 ug/mL (5-10)
[2018-04-05 07:26] LABS: C-REACTIVE PROTEIN < 0.2 mg/dL (0.0-0.9)
[2018-04-05] MEDS: Lactobacillus Rhamnosus GG 15 Billion CFU CAP.SPRINK PO SCH (08:31)
[2018-04-05] MEDS: Calcium Carb/Vit D 500 mg/200 U Tab PO SCH (08:32)
[2018-04-05] MEDS: Non-Formulary Item 1 EA (Cranberry Fruit Extract [Cranberry] 425 MG) PO SCH (10:30)
--- NOTE | 2018-04-05 20:23 | Internal Medicine Prog Note ---
Internal Medicine Subjective - Subjective Service Date: 04/05/18 Patient seen and examined:: with staff Patient is:: awake Per staff patient has:: tolerating meds Internal Medicine Objective - Results Result Diagrams: 04/04/18 07:50 04/04/18 07:50 Recent Labs: Laboratory Last Values WBC 8.7 Th/cmm (4.8-10.8) 04/04/18 07:50 RBC 3.96 Mil/cmm (4.30-5.70) L 04/04/18 07:50 Hgb 11.7 gm/dL (12-16) L 04/04/18 07:50 Hct 34.9 % (41.0-60) L 04/04/18 07:50 MCV 88.2 fl (80-99) 04/04/18 07:50 MCH 29.4 pg (26.0-30.0) 04/04/18 07:50 MCHC Differential 33.4 pg (28.0-36.0) 04/04/18 07:50 RDW 12.3 % (11.5-20.0) 04/04/18 07:50 Plt Count 375 Th/cmm (150-400) 04/04/18 07:50 MPV 7.3 fl 04/04/18 07:50 Neutrophils % 56.6 % (40.0-80.0) 04/04/18 07:50 Lymphocytes % 34.4 % (20.0-50.0) 04/04/18 07:50 Monocytes % 7.2 % (2.0-10.0) 04/04/18 07:50 Eosinophils % 1.5 % (0.0-5.0) 04/04/18 07:50 Basophils % 0.3 % (0.0-2.0) 04/04/18 07:50 ESR 49 mm/hr (0-20) H 04/05/18 05:50 Sodium 135 mEq/L (136-145) L 04/04/18 07:50 Potassium 3.7 mEq/L (3.5-5.1) 04/04/18 07:50 Chloride 103 mEq/L (98-107) 04/04/18 07:50 Carbon Dioxide 24.8 mEq/L (21.0-31.0) 04/04/18 07:50 Anion Gap 10.9 (7.0-16.0) 04/04/18 07:50 BUN 18 mg/dL (7-25) 04/04/18 07:50 Creatinine 0.9 mg/dL (0.7-1.3) 04/04/18 07:50 Est GFR ( Amer) > 60.0 ml/min (>90) 04/04/18 07:50 Est GFR (Non-Af Amer) > 60.0 ml/min 04/04/18 07:50 BUN/Creatinine Ratio 20.0 04/04/18 07:50 Glucose 250 mg/dL (70-105) H 04/04/18 07:50 POC Glucose 134 MG/DL (70 - 105) H 04/05/18 06:17 Whole Bld Lactic Acid 1.32 mmol/L (0.60-1.99) 04/04/18 00:15 Calcium 9.0 mg/dL (8.6-10.3) 04/04/18 07:50 Total Bilirubin 0.3 mg/dL (0.3-1.0) 04/04/18 00:15 AST 11 U/L (13-39) L 04/04/18 00:15 ALT 8 U/L (7-52) 04/04/18 00:15 Alkaline Phosphatase 60 U/L (34-104) 04/04/18 00:15 C-Reactive Protein < 0.2 mg/dL (0.0-0.9) 04/05/18 05:50 Total Protein 6.5 gm/dL (6.0-8.3) 04/04/18 00:15 Albumin 3.7 gm/dL (4.2-5.5) L 04/04/18 00:15 Globulin 2.8 gm/dL 04/04/18 00:15 Albumin/Globulin Ratio 1.3 (1.0-1.8) 04/04/18 00:15 Vancomycin Trough 14.0 ug/mL (5-10) H 04/05/18 14:00 - Physical Exam Vitals and I&O: Vital Signs Temp 97.9 F 04/05/18 20:00 Pulse 89 04/05/18 20:00 Resp 18 04/05/18 20:00 BP 132/89 04/05/18 20:00 Pulse Ox 98 04/05/18 20:00 Intake & Output 04/05/18 04/05/18 04/06/18 06:59 18:59 06:59 Intake Total 1200 500 Output Total 450 600 Balance 750 -100 Weight (lbs) 175 lb 175 lb Intake: Intake, IV Amount 1100 100 Meropenem 1 gm In Sodium 100 100 Chloride 0.9% 100 ml @ 100 mls/hr IV Q8H [facility] Rx# :[id number] Vancomycin HCl 1.5 gm In 1000 Sodium Chloride 0.9% 500 ml @ 165 mls/hr IV Q12H [facility] Rx#:[id number] Oral 100 400 Output: Urine 450 600 Other: # Voids 2 # Bowel Movements 0 Weight Source Bedscale Bedscale Active Medications: Current Medications Acetaminophen (Tylenol) 650 mg PO Q4H PRN PRN Reason: Pain or Fever >101 Stop: 06/03/18 08:38 Acetaminophen (Tylenol Extra Strength) 1,000 mg PO Q4H PRN PRN Reason: Pain (Severe) Stop: 06/03/18 08:38 Bisacodyl (Dulcolax 10 Mg Supp) 10 mg RC DAILY PRN PRN Reason: Constipation Stop: 06/03/18 08:38 Calcium/Vitamin D (Oscal W/Vitamin D) 1 tab PO DAILY [facility] Stop: 06/03/18 08:59 Last Admin: 04/05/18 08:32 Dose: 1 tab Docusate Sodium (Colace) 100 mg PO BID RAVIN Stop: 06/03/18 08:59 Last Admin: 04/05/18 16:32 Dose: 100 mg Donepezil HCl (Aricept) 10 mg PO HS [facility] Stop: 06/03/18 20:59 Last Admin: 04/04/18 20:45 Dose: 10 mg Heparin Sodium (Porcine) (Heparin) 5,000 units SUBQ Q12HR [facility] Stop: 06/03/18 20:59 Last Admin: 04/05/18 08:33 Dose: 5,000 units Sodium Chloride (Nacl 0.45%) 1,000 mls @ 75 mls/hr IV .[id number] [facility] Stop: 06/03/18 01:41 Last Admin: 04/04/18 05:47 Dose: 75 mls/hr Vancomycin HCl 1.5 gm/ Sodium (Chloride) 500 mls @ 165 mls/hr IV Q12H [facility] Stop: 06/03/18 13:59 Last Admin: 04/05/18 17:00 Dose: 165 mls/hr Meropenem 1 gm/ Sodium (Chloride) 100 mls @ 100 mls/hr IV Q8H [facility] Stop: 06/03/18 13:59 Last Admin: 04/05/18 13:59 Dose: 100 mls/hr Insulin Aspart (Novolog Insulin Sliding Scale) 0 units SUBQ ACHS RAVIN; Protocol Stop: 06/03/18 11:29 Last Admin: 04/05/18 17:28 Dose: Not Given Lactobacillus Rhamnosus (Culturelle 15b) 1 each PO DAILY RAVIN Stop: 06/03/18 13:59 Last Admin: 04/05/18 08:31 Dose: 1 each Lorazepam (Ativan) 0.5 mg PO Q6HR PRN; Protocol PRN Reason: Anxiety Stop: 06/04/18 06:26 Magnesium Hydroxide (Milk Of Magnesia) 30 ml PO HS PRN PRN Reason: Constipation Stop: 06/03/18 20:59 Megestrol Acetate (Megace) 400 mg PO DAILY [facility]IN Stop: 06/03/18 08:59 Last Admin: 04/05/18 08:31 Dose: 400 mg Metformin HCl (Glucophage) 500 mg PO BIDWM RAVIN Stop: 06/03/18 08:59 Last Admin: 04/05/18 18:00 Dose: 500 mg Miscellaneous (Argin/Glut/Cahmb/Collag/Mv-Min [Zander Packet]) 1 each PO BID [facility]IN Stop: 06/03/18 08:59 Last Admin: 04/04/18 17:33 Dose: 1 each Miscellaneous (Cranberry Fruit Extract [Cranberry]) 425 mg PO DAILY [facility] Stop: 06/03/18 08:59 Last Admin: 04/05/18 10:30 Dose: Not Given Miscellaneous (Vte Chemical Prophylaxis Screen/ Admission) 1 ea MC PRN PRN PRN Reason: PROTOCOL Stop: 06/03/18 12:01 Miscellaneous (Vte Chemical Prophylaxis Screen/ Admission) 1 ea MC PRN PRN PRN Reason: PROTOCOL Stop: 06/03/18 12:05 Miscellaneous (Probiotic Screen) 1 ea PRN PRN PRN Reason: PROTOCOL Stop: 06/03/18 12:58 Miscellaneous (Vancomycin Iv Per Pharmacy) 1 ea MC PRN RAVIN Stop: 06/03/18 13:29 Ondansetron HCl (Zofran) 4 mg IV Q8H PRN PRN Reason: Nausea / Vomiting Stop: 06/04/18 06:24 Pantoprazole Sodium (Protonix) 40 mg PO BIDAC RAVIN Stop: 06/03/18 10:59 Last Admin: 04/05/18 16:32 Dose: 40 mg Simvastatin (Zocor) 10 mg PO HS RAVIN; Protocol Stop: 06/03/18 20:59 Last Admin: 04/04/18 20:46 Dose: 10 mg Sodium Phosphate (Fleet Enema) 135 ml RC Q48H PRN PRN Reason: Constipation Stop: 06/03/18 08:38 Zinc Sulfate (Zinc Sulfate) 220 mg PO DAILY [facility]IN Stop: 06/03/18 10:59 Last Admin: 04/05/18 08:32 Dose: 220 mg General: weak HEENT: NC/AT, PERRLA Neck: Supple Lungs: CTAB Cardiovascular: RRR, Normal S1, Normal S2 Abdomen: soft, non-tender, non-distended Extremities: excoriation Neurological: alert, bedbound Internal Medicine Assmt/Plan - Assessment Assessment: acute ulcerations esbl wound [place] joints htn psychosis dm cad hyperlipidemia gerd - Plan Plan: ivabx as per id fall precautions wound care to continue continue current plan of care Nutritional Asmnt/Malnutr-PDOC - Dietary Evaluation Malnutrition Findings (Please click <Entered> for more info): Nutritional Asmnt/Malnutrition Start: 04/04/18 16: 27 Text: Status: Complete Freq: Protocol: Document 04/04/18 16:30 LCHENG (Rec: 04/04/18 16:39 [email or web address]) Nutritional Asmnt/Malnutrition Patient General Information Nutritional Screening High Risk Consult Diagnosis ESBL of foot ulcers Pertinent Medical Hx/Surgical Hx HTN, DM, CAD, dyslipidemia, PUD/GERd, arthrisi, psychosis Subjective Information Consult received for elevated blood sugar. Pt seen lying in bed at time of visit. Pt stated good appetite. Not able to get more nutrition infomation from pt and offer diabetic education d/t pt is very confused. Per EMR, PO intake 50-75%. Current Diet Order/ Nutrition Support regular Pertinent Medications oscal w/vit D3, colace, novolog, culturelle, megace, glucophage, protonix, nacl 0. 45%, vancomycin, zinc Pertinent Labs 04/04 Na 135, K 3.4- 3.7, Glucose 221-250, POC 216-251 Nutritional Hx/Data Height 5 ft 7 in Height (Calculated Centimeters) 170.2 Current Weight (lbs) 175 lb Weight (Calculated Kilograms) 79.4 Weight (Calculated Grams) [address]153.7 [place] Body Weight 148 Body Mass Index (BMI) 27.3 Weight Status Overweight GI Symptoms GI Symptoms None Last BM not indicated Difficult in: None Skin Integrity/Comment: pressure ulcer to left toe and left foot Current %PO Fair (50-74%) Estimated Nutritional Goals Calories/Kcals/Kg 25-30 Kcals Calculated 3554-6928 Protein g/k.2 Protein Calculated 74 Fluid: ml 1675-1860ml (1ml/kcal) Nutritional Problem 1. Problem Problem alteread nutrition relatedl abs Etiology hx of DM Signs/Symptoms: Glucose 221-250, POC 216-251 Malnutrition Alert Is there a minimum of two criteria No selected? Query Text:Check all the applicable criteria. A minimum of two criteria are recommended for diagnosis of either severe or non-severe malnutrition. Malnutrition Related to Morbid Obesity Malnutrition related to morbid obesity No Intervention/Recommendation Comments 1. Recommend CCHO 60gm diet d/ t elevated blood sugar and hx of DM. Recommend to check A1c level 2. Monitor PO intake, wt, labs and skin integrity 3. F/U as high risk in 2-3 days, 04/06-04/07 Expected Outcomes/Goals Expected Outcomes/Goals 1. PO intake to meet at least 75% of nutritional needs. 2. Wt stability, skin to remain intact, labs to approach WNL.
[2018-04-05] MEDS: Sodium Chloride 0.45% 1,000 ML IV SCH (22:52)
--- NOTE | 2018-04-05 23:46 | Infectious Disease Prog Note ---
Infectious Disease Subjective - Review of Systems Service Date: 04/05/18 Subjective: There is no new change, no fever. Infectious Disease Objective - Results Result Diagrams: 04/04/18 07:50 04/04/18 07:50 Recent Labs: Laboratory Last Values WBC 8.7 Th/cmm (4.8-10.8) 04/04/18 07:50 RBC 3.96 Mil/cmm (4.30-5.70) L 04/04/18 07:50 Hgb 11.7 gm/dL (12-16) L 04/04/18 07:50 Hct 34.9 % (41.0-60) L 04/04/18 07:50 MCV 88.2 fl (80-99) 04/04/18 07:50 MCH 29.4 pg (26.0-30.0) 04/04/18 07:50 MCHC Differential 33.4 pg (28.0-36.0) 04/04/18 07:50 RDW 12.3 % (11.5-20.0) 04/04/18 07:50 Plt Count 375 Th/cmm (150-400) 04/04/18 07:50 MPV 7.3 fl 04/04/18 07:50 Neutrophils % 56.6 % (40.0-80.0) 04/04/18 07:50 Lymphocytes % 34.4 % (20.0-50.0) 04/04/18 07:50 Monocytes % 7.2 % (2.0-10.0) 04/04/18 07:50 Eosinophils % 1.5 % (0.0-5.0) 04/04/18 07:50 Basophils % 0.3 % (0.0-2.0) 04/04/18 07:50 ESR 49 mm/hr (0-20) H 04/05/18 05:50 Sodium 135 mEq/L (136-145) L 04/04/18 07:50 Potassium 3.7 mEq/L (3.5-5.1) 04/04/18 07:50 Chloride 103 mEq/L (98-107) 04/04/18 07:50 Carbon Dioxide 24.8 mEq/L (21.0-31.0) 04/04/18 07:50 Anion Gap 10.9 (7.0-16.0) 04/04/18 07:50 BUN 18 mg/dL (7-25) 04/04/18 07:50 Creatinine 0.9 mg/dL (0.7-1.3) 04/04/18 07:50 Est GFR ( Amer) > 60.0 ml/min (>90) 04/04/18 07:50 Est GFR (Non-Af Amer) > 60.0 ml/min 04/04/18 07:50 BUN/Creatinine Ratio 20.0 04/04/18 07:50 Glucose 250 mg/dL (70-105) H 04/04/18 07:50 POC Glucose 134 MG/DL (70 - 105) H 04/05/18 06:17 Whole Bld Lactic Acid 1.32 mmol/L (0.60-1.99) 04/04/18 00:15 Calcium 9.0 mg/dL (8.6-10.3) 04/04/18 07:50 Total Bilirubin 0.3 mg/dL (0.3-1.0) 04/04/18 00:15 AST 11 U/L (13-39) L 04/04/18 00:15 ALT 8 U/L (7-52) 04/04/18 00:15 Alkaline Phosphatase 60 U/L (34-104) 04/04/18 00:15 C-Reactive Protein < 0.2 mg/dL (0.0-0.9) 04/05/18 05:50 Total Protein 6.5 gm/dL (6.0-8.3) 04/04/18 00:15 Albumin 3.7 gm/dL (4.2-5.5) L 04/04/18 00:15 Globulin 2.8 gm/dL 04/04/18 00:15 Albumin/Globulin Ratio 1.3 (1.0-1.8) 04/04/18 00:15 Vancomycin Trough 14.0 ug/mL (5-10) H 04/05/18 14:00 - Physical Exam Vitals and I&O: Vital Signs Temp 97.9 F 04/05/18 20:00 Pulse 89 04/05/18 20:00 Resp 18 04/05/18 20:00 BP 132/89 04/05/18 20:00 Pulse Ox 98 04/05/18 20:00 Intake & Output 04/05/18 04/05/18 04/06/18 06:59 18:59 06:59 Intake Total 2200 600 Output Total 450 600 Balance 1750 0 Weight (lbs) 79.379 kg 79.379 kg Intake: Intake, IV Amount 2100 200 Meropenem 1 gm In Sodium 100 200 Chloride 0.9% 100 ml @ 100 mls/hr IV Q8H [facility] Rx# :[id number] Sodium Chloride 0.45% 1, 1000 000 ml @ 75 mls/hr IV . [id number] [facility] Rx#:[id number] Vancomycin HCl 1.5 gm In 1000 Sodium Chloride 0.9% 500 ml @ 165 mls/hr IV Q12H [facility] [place] Rx#:[id number] Oral 100 400 Output: Urine 450 600 Other: # Voids 2 # Bowel Movements 0 Weight Source Bedscale Bedscale Active Medications: Current Medications Acetaminophen (Tylenol) 650 mg PO Q4H PRN PRN Reason: Pain or Fever >101 Stop: 06/03/18 08:38 Acetaminophen (Tylenol Extra Strength) 1,000 mg PO Q4H PRN PRN Reason: Pain (Severe) Stop: 06/03/18 08:38 Bisacodyl (Dulcolax 10 Mg Supp) 10 mg RC DAILY PRN PRN Reason: Constipation Stop: 06/03/18 08:38 Calcium/Vitamin D (Oscal W/Vitamin D) 1 tab PO DAILY [facility] Stop: 06/03/18 08:59 Last Admin: 04/05/18 08:32 Dose: 1 tab Docusate Sodium (Colace) 100 mg PO BID [facility] Stop: 06/03/18 08:59 Last Admin: 04/05/18 16:32 Dose: 100 mg Donepezil HCl (Aricept) 10 mg PO HS [facility] Stop: 06/03/18 20:59 Last Admin: 04/05/18 21:16 Dose: 10 mg Heparin Sodium (Porcine) (Heparin) 5,000 units SUBQ Q12HR [facility] [place] Stop: 06/03/18 20:59 Last Admin: 04/05/18 21:16 Dose: 5,000 units Sodium Chloride (Nacl 0.45%) 1,000 mls @ 75 mls/hr IV .[id number] [facility] Stop: 06/03/18 01:41 Last Admin: 09/11/18 22:52 Dose: 75 mls/hr Vancomycin HCl 1.5 gm/ Sodium (Chloride) 500 mls @ 165 mls/hr IV Q12H [facility] [place] Stop: 06/03/18 13:59 Last Admin: 04/05/18 17:00 Dose: 165 mls/hr Meropenem 1 gm/ Sodium (Chloride) 100 mls @ 100 mls/hr IV Q8H [facility] Stop: 06/03/18 13:59 Last Admin: 04/05/18 22:52 Dose: 100 mls/hr Insulin Aspart (Novolog Insulin Sliding Scale) 0 units SUBQ ACHS [facility]; Protocol Stop: 06/03/18 11:29 Last Admin: 04/05/18 21:19 Dose: Not Given Lactobacillus Rhamnosus (Culturelle 15b) 1 each PO DAILY [facility] Stop: 06/03/18 13:59 Last Admin: 04/05/18 08:31 Dose: 1 each Lorazepam (Ativan) 0.5 mg PO Q6HR PRN; Protocol PRN Reason: Anxiety Stop: 06/04/18 06:26 Magnesium Hydroxide (Milk Of Magnesia) 30 ml PO HS PRN PRN Reason: Constipation Stop: 06/03/18 20:59 Megestrol Acetate (Megace) 400 mg PO DAILY [facility] Stop: 06/03/18 08:59 Last Admin: 04/05/18 08:31 Dose: 400 mg Metformin HCl (Glucophage) 500 mg PO BIDWM [facility] [place] Stop: 06/03/18 08:59 Last Admin: 04/05/18 18:00 Dose: 500 mg Miscellaneous (Argin/Glut/Cahmb/Collag/Mv-Min [Zander Packet]) 1 each PO BID [facility] Stop: 06/03/18 08:59 Last Admin: 04/04/18 17:33 Dose: 1 each Miscellaneous (Cranberry Fruit Extract [Cranberry]) 425 mg PO DAILY [facility] Stop: 06/03/18 08:59 Last Admin: 04/05/18 10:30 Dose: Not Given Miscellaneous (Vte Chemical Prophylaxis Screen/ Admission) 1 ea PRN PRN PRN Reason: PROTOCOL Stop: 06/03/18 12:01 Miscellaneous (Vte Chemical Prophylaxis Screen/ Admission) 1 ea PRN PRN PRN Reason: PROTOCOL Stop: 06/03/18 12:05 Miscellaneous (Probiotic Screen) 1 ea MC PRN PRN PRN Reason: PROTOCOL Stop: 06/03/18 12:58 Miscellaneous (Vancomycin Iv Per Pharmacy) 1 ea MC PRN [facility] Stop: 06/03/18 13:29 Ondansetron HCl (Zofran) 4 mg IV Q8H PRN PRN Reason: Nausea / Vomiting Stop: 06/04/18 06:24 Pantoprazole Sodium (Protonix) 40 mg PO BIDAC [facility] Stop: 06/03/18 10:59 Last Admin: 04/05/18 16:32 Dose: 40 mg Simvastatin (Zocor) 10 mg PO HS [facility]; Protocol Stop: 06/03/18 20:59 Last Admin: 04/05/18 21:16 Dose: 10 mg Sodium Phosphate (Fleet Enema) 135 ml RC Q48H PRN PRN Reason: Constipation Stop: 06/03/18 08:38 Zinc Sulfate (Zinc Sulfate) 220 mg PO DAILY [facility] Stop: 06/03/18 10:59 Last Admin: 04/05/18 08:32 Dose: 220 mg General: no acute distress, well developed, well nourished HEENT: atraumatic, normocephalic, PERRLA, EOMI Neck: supple, no thyromegaly Cardiovascular: S1S2, regular Lungs: clear to auscultation bilaterally, clear to percussion Abdomen: soft, no tender, no distended, no rebound Extremities: other (Left foot is swollen and has ulcer with well-defined border and mid foot and plantar aspect. There is surrounding erythema. Left weeks so has open ulcer with dry scab on medial aspect.), no cyanosis, no clubbing Neurological: awake, alert, oriented Infectious Disease Assmt/Plan - Assessment Assessment: 1. Left foot ulcers with cellulitis. osteomyelitis of left foot. 2. Diabetes mellitus type 2. 3. Hypertension. 4. Hyperlipidemia. 5. Coronary artery disease. 6. MRSA infection. 7. ESBL Escherichia coli infection. - Plan Plan: Continue meropenem for 6 weeks. DC vanco IV. Nutritional Asmnt/Malnutr-PDOC - Dietary Evaluation Malnutrition Findings (Please click <Entered> for more info): Nutritional Asmnt/Malnutrition Start: 04/04/18 16: 27 Text: Status: Complete Freq: Protocol: Document 04/04/18 16:30 [email or web address] (Rec: 04/04/18 16:39 [email or web address]) Nutritional Asmnt/Malnutrition Patient General Information Nutritional Screening High Risk Consult Diagnosis ESBL of foot ulcers Pertinent Medical Hx/Surgical Hx HTN, DM, CAD, dyslipidemia, PUD/GERd, arthrisi, psychosis Subjective Information Consult received for elevated blood sugar. Pt seen lying in bed at time of visit. Pt stated good appetite. Not able to get more nutrition infomation from pt and offer diabetic education d/t pt is very confused. Per EMR, PO intake 50-75%. Current Diet Order/ Nutrition Support regular Pertinent Medications oscal w/vit D3, colace, novolog, culturelle, megace, glucophage, protonix, nacl 0. 45%, vancomycin, zinc Pertinent Labs 04/04 Na 135, K 3.4- 3.7, Glucose 221-250, POC 216-251 Nutritional Hx/Data Height 1.7 m Height (Calculated Centimeters) 170.2 Current Weight (lbs) 79.379 kg Weight (Calculated Kilograms) 79.4 Weight (Calculated Grams) 80432.7 [place] Body Weight 148 Body Mass Index (BMI) 27.3 Weight Status Overweight GI Symptoms GI Symptoms None Last BM not indicated Difficult in: None Skin Integrity/Comment: pressure ulcer to left toe and left foot Current %PO Fair (50-74%) Estimated Nutritional Goals Calories/Kcals/Kg 25-30 Kcals Calculated 7607-0066 Protein g/k.2 Protein Calculated 74 Fluid: ml 1675-1860ml (1ml/kcal) Nutritional Problem 1. Problem Problem alteread nutrition relatedl abs Etiology hx of DM Signs/Symptoms: Glucose 221-250, POC 216-251 Malnutrition Alert Is there a minimum of two criteria No selected? Query Text:Check all the applicable criteria. A minimum of two criteria are recommended for diagnosis of either severe or non-severe malnutrition. Malnutrition Related to Morbid Obesity Malnutrition related to morbid obesity No Intervention/Recommendation Comments 1. Recommend CCHO 60gm diet d/ t elevated blood sugar and hx of DM. Recommend to check A1c level 2. Monitor PO intake, wt, labs and skin integrity 3. F/U as high risk in 2-3 days, 04/06-04/07 Expected Outcomes/Goals Expected Outcomes/Goals 1. PO intake to meet at least 75% of nutritional needs. 2. Wt stability, skin to remain intact, labs to approach WNL.
[2018-04-06] MEDS: Meropenem 1 GM in Sodium Chloride 0.9% 100 ML IV SCH ×3 (05:17→22:12)
[2018-04-06] MEDS: Pantoprazole 40 mg EC Tab PO SCH ×2 (06:35→16:19)
[2018-04-06] MEDS: INSULIN ASPART SLIDING SCALE 100 UNITS/ML UNIT SUBQ SCH ×4 (07:23→20:46)
[2018-04-06] MEDS: Calcium Carb/Vit D 500 mg/200 U Tab PO SCH (09:01)
[2018-04-06] MEDS: Non-Formulary Item 1 EA (Cranberry Fruit Extract [Cranberry] 425 MG) PO SCH (09:01)
[2018-04-06] MEDS: Lactobacillus Rhamnosus GG 15 Billion CFU CAP.SPRINK PO SCH (09:02)
--- NOTE | 2018-04-06 09:05 | Diagnostic Imaging Report ---
Radionuclide 3 phase bone scan left foot HISTORY: Swelling, osteomyelitis 22.4 mCi technetium MDP used in the exam. Initial perfusion/bloodflow images and subtle 20 blood pool and delayed images obtained. The initial perfusion images demonstrate mild asymmetric increased activity within the soft tissues about the left foot. Blood pool and delayed images demonstrate somewhat more focal increased activity within the posterior foot in the vicinity of the talus calcaneal area. This corresponds to extensive abnormal deformity and changes noted on a plain radiograph of April 04, 2018. Osteomyelitis cannot definitely be excluded. If the patient can cooperate and be positioned, an MRI exam would provide additional characterization and assessment. IMPRESSION: 1. Changes as described above. Osteomyelitis cannot be definitely excluded within the vicinity of the talocalcaneal region of the left foot. If the patient can cooperate and be positioned, an MRI exam may provide additional characterization and assessment.
--- NOTE | 2018-04-06 10:33 | Consultation ---
DATE OF CONSULTATION: 04/04/2018 SURGICAL CONSULTATION REFERRING PHYSICIAN: Dr. Dunbar. REASON FOR CONSULTATION: Ulcer, left foot. Thank you for referring this patient to me. HISTORY OF PRESENT ILLNESS: This is a 57-year-old male who was admitted because of ulcer of the left foot. PAST MEDICAL HISTORY: Includes diabetes mellitus, hypertension, coronary artery disease, hyperlipidemia, GERD, arthritis and psychosis. Girlfriend was called over the phone and she informed me that the patient has been walking on this foot and has had multiple surgeries by his local physician in [place] dating back to 5 years ago. Apparently 1 time it had healed completely, but it broke down again. LABORATORY STUDIES: On this admission include a WBC of 8700, hemoglobin 11.7. Blood sugar is 250. Liver function tests are normal. The patient has blood cultures negative. The patient has been seen by Infectious Disease sap [facility] consultant and no Psych evaluation is noted at this point. He has undergone ultrasound study of the lower extremity arterial circulation and there is no disease requiring revascularization. The bone scan, however, is positive for osteomyelitis in the left foot. The left foot shows condition consistent with Charcot joint and there is an ulcer at the base of the plantar aspect, which is about 2 cm with thick callus surrounding this and minimal drainage. Per consent from the girlfriend, Samra, who was called over the phone. We will do, 1. Excisional debridement of the ulcer. 2. Placement of central line to allow IV antibiotics for a period of at least 6 weeks. JOB# [id number]
[2018-04-06] MEDS ORDERED: Venelex 60gm Tube TP ONE ×2 (12:25→14:15)
--- NOTE | 2018-04-06 12:43 | General Progress Note ---
Subjective - Review of Systems Events since last encounter: patient admitted with rt foot ulcer has pain h/o psychosis Objective - Results Result Diagrams: 04/04/18 07:50 04/04/18 07:50 Recent Labs: Laboratory Last Values WBC 8.7 Th/cmm (4.8-10.8) 04/04/18 07:50 RBC 3.96 Mil/cmm (4.30-5.70) L 04/04/18 07:50 Hgb 11.7 gm/dL (12-16) L 04/04/18 07:50 Hct 34.9 % (41.0-60) L 04/04/18 07:50 MCV 88.2 fl (80-99) 04/04/18 07:50 MCH 29.4 pg (26.0-30.0) 04/04/18 07:50 MCHC Differential 33.4 pg (28.0-36.0) 04/04/18 07:50 RDW 12.3 % (11.5-20.0) 04/04/18 07:50 Plt Count 375 Th/cmm (150-400) 04/04/18 07:50 MPV 7.3 fl 04/04/18 07:50 Neutrophils % 56.6 % (40.0-80.0) 04/04/18 07:50 Lymphocytes % 34.4 % (20.0-50.0) 04/04/18 07:50 Monocytes % 7.2 % (2.0-10.0) 04/04/18 07:50 Eosinophils % 1.5 % (0.0-5.0) 04/04/18 07:50 Basophils % 0.3 % (0.0-2.0) 04/04/18 07:50 ESR 49 mm/hr (0-20) H 04/05/18 05:50 Sodium 135 mEq/L (136-145) L 04/04/18 07:50 Potassium 3.7 mEq/L (3.5-5.1) 04/04/18 07:50 Chloride 103 mEq/L (98-107) 04/04/18 07:50 Carbon Dioxide 24.8 mEq/L (21.0-31.0) 04/04/18 07:50 Anion Gap 10.9 (7.0-16.0) 04/04/18 07:50 BUN 18 mg/dL (7-25) 04/04/18 07:50 Creatinine 0.9 mg/dL (0.7-1.3) 04/04/18 07:50 Est GFR ( Amer) > 60.0 ml/min (>90) 04/04/18 07:50 Est GFR (Non-Af Amer) > 60.0 ml/min 04/04/18 07:50 BUN/Creatinine Ratio 20.0 04/04/18 07:50 Glucose 250 mg/dL (70-105) H 04/04/18 07:50 POC Glucose 157 MG/DL (70 - 105) H 04/06/18 11:43 Whole Bld Lactic Acid 1.32 mmol/L (0.60-1.99) 04/04/18 00:15 Calcium 9.0 mg/dL (8.6-10.3) 04/04/18 07:50 Total Bilirubin 0.3 mg/dL (0.3-1.0) 04/04/18 00:15 AST 11 U/L (13-39) L 04/04/18 00:15 ALT 8 U/L (7-52) 04/04/18 00:15 Alkaline Phosphatase 60 U/L (34-104) 04/04/18 00:15 C-Reactive Protein < 0.2 mg/dL (0.0-0.9) 04/05/18 05:50 Total Protein 6.5 gm/dL (6.0-8.3) 04/04/18 00:15 Albumin 3.7 gm/dL (4.2-5.5) L 04/04/18 00:15 Globulin 2.8 gm/dL 04/04/18 00:15 Albumin/Globulin Ratio 1.3 (1.0-1.8) 04/04/18 00:15 Vancomycin Trough 14.0 ug/mL (5-10) H 04/05/18 14:00 - Physical Exam Vitals and I&O: Vital Signs Temp 98.5 F 04/06/18 11:32 Pulse 88 04/06/18 11:32 Resp 18 04/06/18 11:32 BP 120/69 04/06/18 11:32 Pulse Ox 100 04/06/18 11:32 Intake & Output 04/05/18 04/06/1804/06/18 18:59 06:59 18:59 Intake Total 600 500 Output Total 600 Balance 0 500 Weight (lbs) 79.379 kg 81.647 kg Intake: Intake, IV Amount 200 100 Meropenem 1 gm In Sodium 200 100 Chloride 0.9% 100 ml @ 100 mls/hr IV Q8H [facility] Rx# :[id number] Oral 400 400 Output: Urine 600 Other: # Voids 2 1 # Bowel Movements 0 Weight Source Bedscale Estimated Active Medications: Current Medications Acetaminophen (Tylenol) 650 mg PO Q4H PRN PRN Reason: Pain or Fever >101 Stop: 06/03/18 08:38 Acetaminophen (Tylenol Extra Strength) 1,000 mg PO Q4H PRN PRN Reason: Pain (Severe) Stop: 06/03/18 08:38 Bisacodyl (Dulcolax 10 Mg Supp) 10 mg RC DAILY PRN PRN Reason: Constipation Stop: 06/03/18 08:38 Calcium/Vitamin D (Oscal W/Vitamin D) 1 tab PO DAILY [facility] Stop: 06/03/18 08:59 Last Admin: 04/06/18 09:01 Dose: Not Given Docusate Sodium (Colace) 100 mg PO BID [facility] Stop: 06/03/18 08:59 Last Admin: 04/06/18 09:02 Dose: Not Given Donepezil HCl (Aricept) 10 mg PO HS [facility] Stop: 06/03/18 20:59 Last Admin: 04/05/18 21:16 Dose: 10 mg Heparin Sodium (Porcine) (Heparin) 5,000 units SUBQ Q12HR [facility] Stop: 06/03/18 20:59 Last Admin: 04/06/18 11:12 Dose: Not Given Sodium Chloride (Nacl 0.45%) 1,000 mls @ 75 mls/hr IV .[id number] [facility] Stop: 06/03/18 01:41 Last Admin: 04/05/18 22:52 Dose: 75 mls/hr Meropenem 1 gm/ Sodium (Chloride) 100 mls @ 100 mls/hr IV Q8H [facility] Stop: 06/03/18 13:59 Last Admin: 04/06/18 05:17 Dose: 100 mls/hr Insulin Aspart (Novolog Insulin Sliding Scale) 0 units SUBQ ACHS [facility]; Protocol Stop: 06/03/18 11:29 Last Admin: 04/06/18 07:23 Dose: Not Given Lactobacillus Rhamnosus (Culturelle 15b) 1 each PO DAILY [facility] Stop: 06/03/18 13:59 Last Admin: 04/06/18 09:02 Dose: Not Given Lorazepam (Ativan) 0.5 mg PO Q6HR PRN; Protocol PRN Reason: Anxiety Stop: 06/04/18 06:26 Magnesium Hydroxide (Milk Of Magnesia) 30 ml PO HS PRN PRN Reason: Constipation Stop: 06/03/18 20:59 Megestrol Acetate (Megace) 400 mg PO DAILY [facility] Stop: 06/03/18 08:59 Last Admin: 04/06/18 09:02 Dose: Not Given Metformin HCl (Glucophage) 500 mg PO BIDWM [facility] Stop: 06/03/18 08:59 Last Admin: 04/06/18 09:01 Dose: Not Given Miscellaneous (Argin/Glut/Cahmb/Collag/Mv-Min [Zander Packet]) 1 each PO BID [facility] Stop: 06/03/18 08:59 Last Admin: 04/04/18 17:33 Dose: 1 each Miscellaneous (Cranberry Fruit Extract [Cranberry]) 425 mg PO DAILY [facility] Stop: 06/03/18 08:59 Last Admin: 04/06/18 09:01 Dose: Not Given Miscellaneous (Vte Chemical Prophylaxis Screen/ Admission) 1 ea PRN PRN PRN Reason: PROTOCOL Stop: 06/03/18 12:01 Miscellaneous (Vte Chemical Prophylaxis Screen/ Admission) 1 ea PRN PRN PRN Reason: PROTOCOL Stop: 06/03/18 12:05 Miscellaneous (Probiotic Screen) 1 ea PRN PRN PRN Reason: PROTOCOL Stop: 06/03/18 12:58 Ondansetron HCl (Zofran) 4 mg IV Q8H PRN PRN Reason: Nausea / Vomiting Stop: 06/04/18 06:24 Pantoprazole Sodium (Protonix) 40 mg PO BIDAC [facility] Stop: 06/03/18 10:59 Last Admin: 04/06/18 06:35 Dose: 40 mg Simvastatin (Zocor) 10 mg PO HS [facility]; Protocol Stop: 06/03/18 20:59 Last Admin: 04/05/18 21:16 Dose: 10 mg Sodium Phosphate (Fleet Enema) 135 ml RC Q48H PRN PRN Reason: Constipation Stop: 06/03/18 08:38 Zinc Sulfate (Zinc Sulfate) 220 mg PO DAILY [facility] Stop: 06/03/18 10:59 Last Admin: 04/06/18 09:02 Dose: Not Given General: No acute distress HEENT: Atraumatic Cardiovascular: Regular rate, Normal S1 Assessment/Plan - Problem List Patient Problems: All Active Problems Functional paraparesis (Acute) F44.4 GERD (gastroesophageal reflux disease) (Acute) K21.9 H/O psychosis (Acute) Z86.59 Hyperlipidemia (Acute) E78.5 - Plan Plan: as per order sheet Nutritional Asmnt/Malnutr-PDOC - Dietary Evaluation Malnutrition Findings (Please click <Entered> for more info): Nutritional Asmnt/Malnutrition Start: 04/04/18 16: 27 Text: Status: Complete Freq: Protocol: Document 04/04/18 16:30 [email or web address] (Rec: 04/04/18 16:39 [email or web address]) Nutritional Asmnt/Malnutrition Patient General Information Nutritional Screening High Risk Consult Diagnosis ESBL of foot ulcers Pertinent Medical Hx/Surgical Hx HTN, DM, CAD, dyslipidemia, PUD/GERd, arthrisi, psychosis Subjective Information Consult received for elevated blood sugar. Pt seen lying in bed at time of visit. Pt stated good appetite. Not able to get more nutrition infomation from pt and offer diabetic education d/t pt is very confused. Per EMR, PO intake 50-75%. Current Diet Order/ Nutrition Support regular Pertinent Medications oscal w/vit D3, colace, novolog, culturelle, megace, glucophage, protonix, nacl 0. 45%, vancomycin, zinc Pertinent Labs 04/04 Na 135, K 3.4- 3.7, Glucose 221-250, POC 216-251 Nutritional Hx/Data Height 1.7 m Height (Calculated Centimeters) 170.2 Current Weight (lbs) 79.379 kg Weight (Calculated Kilograms) 79.4 Weight (Calculated Grams) 11459.7 [place] Body Weight 148 Body Mass Index (BMI) 27.3 Weight Status Overweight GI Symptoms GI Symptoms None Last BM not indicated Difficult in: None Skin Integrity/Comment: pressure ulcer to left toe and left foot Current %PO Fair (50-74%) Estimated Nutritional Goals Calories/Kcals/Kg 25-30 Kcals Calculated 6166-8315 Protein g/k.2 Protein Calculated 74 Fluid: ml 1675-1860ml (1ml/kcal) Nutritional Problem 1. Problem Problem alteread nutrition relatedl abs Etiology hx of DM Signs/Symptoms: Glucose 221-250, POC 216-251 Malnutrition Alert Is there a minimum of two criteria No selected? Query Text:Check all the applicable criteria. A minimum of two criteria are recommended for diagnosis of either severe or non-severe malnutrition. Malnutrition Related to Morbid Obesity Malnutrition related to morbid obesity No Intervention/Recommendation Comments 1. Recommend CCHO 60gm diet d/ t elevated blood sugar and hx of DM. Recommend to check A1c level 2. Monitor PO intake, wt, labs and skin integrity 3. F/U as high risk in 2-3 days, 04/06-04/07 Expected Outcomes/Goals Expected Outcomes/Goals 1. PO intake to meet at least 75% of nutritional needs. 2. Wt stability, skin to remain intact, labs to approach WNL.
--- NOTE | 2018-04-06 13:18 | Diagnostic Imaging Report ---
Portable chest x-ray HISTORY: Shortness of breath, vascular catheter placement Compared with the prior exam of February 04, 2018, a right-sided vascular catheter has been inserted. The tip is in the region of the superior vena cava. No focal pulmonary processes. The heart size is normal. IMPRESSION: 1. Vascular catheter tip within the region of the superior vena cava 2. No focal pulmonary processes
[2018-04-06 13:40] LABS: % BASOPHILS 0.6 % (0.0-2.0); % LYMPHOCYTES 24.7 % (20.0-50.0); % MONOCYTES 4.3 % (2.0-10.0); % NEUTROPHILS 69.4 % (40.0-80.0); BASOPHILE ABSOLUTE 0.1 Th/cumm (0-0.2); EOSINOPHILE ABSOLUTE 0.1 Th/cmm (0.1-0.4); HEMATOCRIT 37.2 % (41.0-60); HEMOGLOBIN 12.4 gm/dL (12-16); LYMPHOCYTE ABSOLUTE 2.7 Th/cmm (1.5-3.0); MEAN CELL VOLUME 87.5 fl (80-99); MEAN CORPUSCULAR HEMOGLOBIN 29.2 pg (26.0-30.0); MEAN CORPUSCULAR HGB CONC 33.4 pg (28.0-36.0); MEAN PLATELET VOLUME 7.3 fl; MONOCYTE ABSOLUTE 0.5 Th/cmm (0.3-1.0); NEUTROPHILE ABSOLUTE 7.7 Th/cmm (1.8-8.0); PLATELET COUNT 404 Th/cmm (150-400); RED BLOOD COUNT 4.25 Mil/cmm (4.30-5.70); RED CELL DISTRIBUTION WIDTH 12.3 % (11.5-20.0); WHITE BLOOD COUNT 11.1 Th/cmm (4.8-10.8)
[2018-04-06 14:01] LABS: INR 1.07 (0.5-1.4); PROTHROMBIN TIME (TEST) 11.1 SECONDS (9.5-11.5)
[2018-04-06 14:07] LABS: ALB/GLOB RATIO 1.2 (1.0-1.8); ALBUMIN 3.6 gm/dL (4.2-5.5); ALKALINE PHOSPHATASE 61 U/L (34-104); ANION GAP 11.5 (7.0-16.0); BILIRUBIN,TOTAL 0.5 mg/dL (0.3-1.0); BUN - UREA NITROGEN 8 mg/dL (7-25); CALCIUM SERUM 9.3 mg/dL (8.6-10.3); CARBON DIOXIDE 25.4 mEq/L (21.0-31.0); CHLORIDE 104 mEq/L (98-107); CREATININE - SERUM 0.7 mg/dL (0.7-1.3); GFR AFRICAN-AMERICAN > 60.0 ml/min (>90); GFR NON AFRICAN-AMERICAN > 60.0 ml/min; GLUCOSE 167 mg/dL (70-105); POTASSIUM SERUM 3.9 mEq/L (3.5-5.1); SGOT 11 U/L (13-39); SGPT/ALT 9 U/L (7-52); SODIUM SERUM 137 mEq/L (136-145); TOTAL PROTEIN,SERUM 6.5 gm/dL (6.0-8.3)
[2018-04-06] MEDS ORDERED: Propofol 10 mg/mL 20mL Vial **SURGERY USE ONLY IV ONE (14:15)
--- NOTE | 2018-04-06 15:35 | Operative Report ---
DATE OF SURGERY: 04/06/2018 PREOPERATIVE DIAGNOSES: 1. Ulcer, plantar aspect of left mid foot. 2. Ulcer tip of the left big toe. 3. Charcot joint. 4. Diabetes mellitus. 5. Hypertension. 6. Psychosis. POSTOPERATIVE DIAGNOSES 1. Ulcer, plantar aspect of left mid foot. 2. Ulcer tip of the left big toe. 3. Charcot joint. 4. Diabetes mellitus. 5. Hypertension. 6. Psychosis. OPERATION: 1. Excisional debridement of left foot plantar ulcer, size is 2 x 2 cm, depth to subcutaneous tissue. 2. Excisional debridement of left big toe distal phalanx, size 1 x 1 cm, depth to subcutaneous tissues. INDICATION FOR SURGERY: The patient with a chronic ulcer of the left foot for the last 5 years with frequent recurrences. Bone scan on this admission shows osteomyelitis. SURGEON: Matty Juarez M.D. ANESTHESIA: MAC with nerve block. ANESTHESIOLOGIST: Berhane Reynolds M.D. ESTIMATED BLOOD LOSS: None. PROCEDURE: This patient was given IV sedation and nerve block. The left foot was prepped with Betadine and draped. Sharp scissors were used to debride the plantar ulcer, but most of this was granulation tissue with no hole present to indicate its extent and connection to the metatarsal. This is in spite of the bone scan which was positive in this area. The tip of the left big toe was debrided with the ulcer extending to the subcutaneous tissues. PLAN: The patient had a PICC line placed today and will undergo 6 weeks of antibiotic therapy and hopefully osteomyelitis can be eliminated. Local wound care will be instituted. JOB# [id number]
[2018-04-06 16:48] LABS: URINE SOURCE CLEAN C
[2018-04-06 16:50] LABS: URINE BILIRUBIN NEGATIVE (NEGATIVE); URINE BLOOD NEGATIVE (NEGATIVE); URINE GLUCOSE (UA) NEGATIVE (NEGATIVE); URINE KETONE 15 mg/dL (NEGATIVE); URINE LEUKOCYTE ESTERASE NEGATIVE (NEGATIVE); URINE NITRATE NEGATIVE (NEGATIVE); URINE PROTEIN NEGATIVE (NEGATIVE); URINE UROBILINOGEN 0.2 E.U./dL (0.2 - 1.0)
[2018-04-06 16:52] LABS: URINE CLARITY CLEAR (CLEAR); URINE COLOR YELLOW; URINE MICROSCOPIC INDICATED? YES
[2018-04-06 17:38] LABS: URINE BACTERIA OCCASIONAL /hpf (NONE SEEN); URINE EPITHELIAL CELLS FEW /lpf (FEW); URINE RBC 0-2 /hpf (0-5); URINE WBC 0-2 /hpf (0-5)
[2018-04-06] MEDS: Sodium Chloride 0.45% 1,000 ML IV SCH (22:24)
--- NOTE | 2018-04-07 02:14 | Infectious Disease Prog Note ---
Infectious Disease Subjective - Review of Systems Service Date: 04/07/18 Subjective: There is no new change, no fever. Infectious Disease Objective - Results Result Diagrams: 04/06/18 13:20 04/06/18 13:20 Recent Labs: Laboratory Last Values WBC 11.1 Th/cmm (4.8-10.8) H 04/06/18 13:20 RBC 4.25 Mil/cmm (4.30-5.70) L 04/06/18 13:20 Hgb 12.4 gm/dL (12-16) 04/06/18 13:20 Hct 37.2 % (41.0-60) L 04/06/18 13:20 MCV 87.5 fl (80-99) 04/06/18 13:20 MCH 29.2 pg (26.0-30.0) 04/06/18 13:20 MCHC Differential 33.4 pg (28.0-36.0) 04/06/18 13:20 RDW 12.3 % (11.5-20.0) 04/06/18 13:20 Plt Count 404 Th/cmm (150-400) H 04/06/18 13:20 MPV 7.3 fl 04/06/18 13:20 Neutrophils % 69.4 % (40.0-80.0) 04/06/18 13:20 Lymphocytes % 24.7 % (20.0-50.0) 04/06/18 13:20 Monocytes % 4.3 % (2.0-10.0) 04/06/18 13:20 Eosinophils % 1.0 % (0.0-5.0) 04/06/18 13:20 Basophils % 0.6 % (0.0-2.0) 04/06/18 13:20 ESR 49 mm/hr (0-20) H 04/05/18 05:50 PT 11.1 SECONDS (9.5-11.5) 04/06/18 13:20 INR 1.07 (0.5-1.4) 04/06/18 13:20 PTT (Actin FS) 25.9 SECONDS (26.0-38.0) L 04/06/18 13:20 Sodium 137 mEq/L (136-145) 04/06/18 13:20 Potassium 3.9 mEq/L (3.5-5.1) 04/06/18 13:20 Chloride 104 mEq/L (98-107) 04/06/18 13:20 Carbon Dioxide 25.4 mEq/L (21.0-31.0) 04/06/18 13:20 Anion Gap 11.5 (7.0-16.0) 04/06/18 13:20 BUN 8 mg/dL (7-25) 04/06/18 13:20 Creatinine 0.7 mg/dL (0.7-1.3) 04/06/18 13:20 Est GFR ( Amer) > 60.0 ml/min (>90) 04/06/18 13:20 Est GFR (Non-Af Amer) > 60.0 ml/min 04/06/18 13:20 BUN/Creatinine Ratio 11.4 04/06/18 13:20 Glucose 167 mg/dL (70-105) H 04/06/18 13:20 POC Glucose 161 MG/DL (70 - 105) H 04/06/18 20:42 Whole Bld Lactic Acid 1.32 mmol/L (0.60-1.99) 04/04/18 00:15 Calcium 9.3 mg/dL (8.6-10.3) 04/06/18 13:20 Total Bilirubin 0.5 mg/dL (0.3-1.0) 04/06/18 13:20 AST 11 U/L (13-39) L 04/06/18 13:20 ALT 9 U/L (7-52) 04/06/18 13:20 Alkaline Phosphatase 61 U/L (34-104) 04/06/18 13:20 C-Reactive Protein < 0.2 mg/dL (0.0-0.9) 04/05/18 05:50 Total Protein 6.5 gm/dL (6.0-8.3) 04/06/18 13:20 Albumin 3.6 gm/dL (4.2-5.5) L 04/06/18 13:20 Globulin 2.9 gm/dL 04/06/18 13:20 Albumin/Globulin Ratio 1.2 (1.0-1.8) 04/06/18 13:20 Urine Source CLEAN C 04/06/18 16:30 Urine Color YELLOW 04/06/18 16:30 Urine Clarity CLEAR (CLEAR) 04/06/18 16:30 Urine pH 6.0 (4.6 - 8.0) 04/06/18 16:30 Ur Specific [place] 1.015 (1.005-1.030) 04/06/18 16:30 Urine Protein NEGATIVE mg/dL (NEGATIVE) 04/06/18 16:30 Urine Glucose (UA) NEGATIVE mg/dL (NEGATIVE) 04/06/18 16:30 Urine Ketones 15 mg/dL (NEGATIVE) H 04/06/18 16:30 Urine Blood NEGATIVE (NEGATIVE) 04/06/18 16:30 Urine Nitrate NEGATIVE (NEGATIVE) 04/06/18 16:30 Urine Bilirubin NEGATIVE (NEGATIVE) 04/06/18 16:30 Urine Urobilinogen 0.2 E.U./dL (0.2 - 1.0) 04/06/18 16:30 Ur Leukocyte Esterase NEGATIVE (NEGATIVE) 04/06/18 16:30 Urine RBC 0-2 /hpf (0-5) H 04/06/18 16:30 Urine WBC 0-2 /hpf (0-5) 04/06/18 16:30 Ur Epithelial Cells FEW /lpf (FEW) 04/06/18 16:30 Urine Bacteria OCCASIONAL /hpf (NONE SEEN) 04/06/18 16:30 Urine Mucus FEW /lpf (FEW) 04/06/18 16:30 Vancomycin Trough 14.0 ug/mL (5-10) H 04/05/18 14:00 - Physical Exam Vitals and I&O: Vital Signs Temp 98.2 F 04/07/18 00:00 Pulse 86 04/07/18 00:00 Resp 17 04/07/18 00:00 BP 113/75 04/07/18 00:00 Pulse Ox 97 04/07/18 00:00 Intake & Output 04/06/18 04/06/18 04/07/18 06:59 18:59 06:59 Intake Total 600 1000 100 Balance 600 1000 100 Weight (lbs) 81.647 kg Intake: Intake, IV Amount 200 1000 100 Meropenem 1 gm In Sodium 200 100 Chloride 0.9% 100 ml @ 100 mls/hr IV Q8H [facility] Rx# :[id number] Sodium Chloride 0.45% 1, 1000 000 ml @ 75 mls/hr IV . [id number] [facility] Rx#:[id number] Oral 400 Other: # Voids 1 # Bowel Movements 0 Weight Source Estimated Active Medications: Current Medications Acetaminophen (Tylenol) 650 mg PO Q4H PRN PRN Reason: Pain or Fever >101 Stop: 06/03/18 08:38 Acetaminophen (Tylenol Extra Strength) 1,000 mg PO Q4H PRN PRN Reason: Pain (Severe) Stop: 06/03/18 08:38 Bisacodyl (Dulcolax 10 Mg Supp) 10 mg RC DAILY PRN PRN Reason: Constipation Stop: 06/03/18 08:38 Calcium/Vitamin D (Oscal W/Vitamin D) 1 tab PO DAILY [facility] Stop: 06/03/18 08:59 Last Admin: 04/06/18 09:01 Dose: Not Given Docusate Sodium (Colace) 100 mg PO BID [facility] Stop: 06/03/18 08:59 Last Admin: 04/06/18 16:19 Dose: 100 mg Donepezil HCl (Aricept) 10 mg PO HS [facility] Stop: 06/03/18 20:59 Last Admin: 04/06/18 20:31 Dose: 10 mg Heparin Sodium (Porcine) (Heparin) 5,000 units SUBQ Q12HR [facility] Stop: 06/03/18 20:59 Last Admin: 04/06/18 20:30 Dose: 5,000 units Sodium Chloride (Nacl 0.45%) 1,000 mls @ 75 mls/hr IV .[id number] [facility] Stop: 06/03/18 01:41 Last Admin: 04/06/18 22:24 Dose: 75 mls/hr Meropenem 1 gm/ Sodium (Chloride) 100 mls @ 100 mls/hr IV Q8H [facility] Stop: 06/03/18 13:59 Last Admin: 04/06/18 22:12 Dose: 100 mls/hr Insulin Aspart (Novolog Insulin Sliding Scale) 0 units SUBQ ACHS [facility]; Protocol Stop: 06/03/18 11:29 Last Admin: 04/06/18 20:46 Dose: 2 units Lactobacillus Rhamnosus (Culturelle 15b) 1 each PO DAILY [facility] Stop: 06/03/18 13:59 Last Admin: 04/06/18 09:02 Dose: Not Given Lorazepam (Ativan) 0.5 mg PO Q6HR PRN; Protocol PRN Reason: Anxiety Stop: 06/04/18 06:26 Last Admin: 04/07/18 01:16 Dose: 0.5 mg Magnesium Hydroxide (Milk Of Magnesia) 30 ml PO HS PRN PRN Reason: Constipation Stop: 06/03/18 20:59 Megestrol Acetate (Megace) 400 mg PO DAILY [facility] Stop: 06/03/18 08:59 Last Admin: 04/06/18 09:02 Dose: Not Given Metformin HCl (Glucophage) 500 mg PO BIDWM [facility] Stop: 06/03/18 08:59 Last Admin: 04/06/18 18:04 Dose: 500 mg Miscellaneous (Vte Chemical Prophylaxis Screen/ Admission) 1 ea PRN PRN PRN Reason: PROTOCOL Stop: 06/03/18 12:05 Miscellaneous (Probiotic Screen) 1 ea PRN PRN PRN Reason: PROTOCOL Stop: 06/03/18 12:58 Ondansetron HCl (Zofran) 4 mg IV Q8H PRN PRN Reason: Nausea / Vomiting Stop: 06/04/18 06:24 Pantoprazole Sodium (Protonix) 40 mg PO BIDAC [facility] Stop: 06/03/18 10:59 Last Admin: 04/06/18 16:19 Dose: 40 mg Simvastatin (Zocor) 10 mg PO HS [facility]; Protocol Stop: 06/03/18 20:59 Last Admin: 04/06/18 20:29 Dose: 10 mg Sodium Phosphate (Fleet Enema) 135 ml RC Q48H PRN PRN Reason: Constipation Stop: 06/03/18 08:38 Zinc Sulfate (Zinc Sulfate) 220 mg PO DAILY [facility] Stop: 06/03/18 10:59 Last Admin: 04/06/18 09:02 Dose: Not Given General: no acute distress, well developed, well nourished HEENT: atraumatic, normocephalic, PERRLA Neck: supple, no thyromegaly Cardiovascular: S1S2, regular Lungs: clear to auscultation bilaterally, clear to percussion Abdomen: soft, no tender, no distended Extremities: other, no cyanosis, no clubbing, no edema Neurological: awake, alert Infectious Disease Assmt/Plan - Problem List Patient Problems: All Active Problems Functional paraparesis (Acute) F44.4 GERD (gastroesophageal reflux disease) (Acute) K21.9 H/O psychosis (Acute) Z86.59 Hyperlipidemia (Acute) E78.5 - Assessment Assessment: 1. Left foot ulcers with cellulitis. osteomyelitis of left foot. 2. Diabetes mellitus type 2. 3. Hypertension. 4. Hyperlipidemia. 5. Coronary artery disease. 6. MRSA infection. 7. ESBL Escherichia coli infection. - Plan Plan: Continue meropenem for 6 weeks. May change to Invanz 1 G IV for total 6 weeks. wound care. May be discharged from ID point of view. Nutritional Asmnt/Malnutr-PDOC - Dietary Evaluation Malnutrition Findings (Please click <Entered> for more info): Nutritional Asmnt/Malnutrition Start: 04/04/18 16: 27 Text: Status: Complete Freq: Protocol: Document 04/04/18 16:30 LCHENG (Rec: 04/04/18 16:39 [email or web address] [id number]) Nutritional Asmnt/Malnutrition Patient General Information Nutritional Screening High Risk Consult Diagnosis ESBL of foot ulcers Pertinent Medical Hx/Surgical Hx HTN, DM, CAD, dyslipidemia, PUD/GERd, arthrisi, psychosis Subjective Information Consult received for elevated blood sugar. Pt seen lying in bed at time of visit. Pt stated good appetite. Not able to get more nutrition infomation from pt and offer diabetic education d/t pt is very confused. Per EMR, PO intake 50-75%. Current Diet Order/ Nutrition Support regular Pertinent Medications oscal w/vit D3, colace, novolog, culturelle, megace, glucophage, protonix, nacl 0. 45%, vancomycin, zinc Pertinent Labs 04/04 Na 135, K 3.4- 3.7, Glucose 221-250, POC 216-251 Nutritional Hx/Data Height 1.7 m Height (Calculated Centimeters) 170.2 Current Weight (lbs) 79.379 kg Weight (Calculated Kilograms) 79.4 Weight (Calculated Grams) 79449.7 [place] Body Weight 148 Body Mass Index (BMI) 27.3 Weight Status Overweight GI Symptoms GI Symptoms None Last BM not indicated Difficult in: None Skin Integrity/Comment: pressure ulcer to left toe and left foot Current %PO Fair (50-74%) Estimated Nutritional Goals Calories/Kcals/Kg 25-30 Kcals Calculated 9087-1157 Protein g/k.2 Protein Calculated 74 Fluid: ml 1675-1860ml (1ml/kcal) Nutritional Problem 1. Problem Problem alteread nutrition relatedl abs Etiology hx of DM Signs/Symptoms: Glucose 221-250, POC 216-251 Malnutrition Alert Is there a minimum of two criteria No selected? Query Text:Check all the applicable criteria. A minimum of two criteria are recommended for diagnosis of either severe or non-severe malnutrition. Malnutrition Related to Morbid Obesity Malnutrition related to morbid obesity No Intervention/Recommendation Comments 1. Recommend CCHO 60gm diet d/ t elevated blood sugar and hx of DM. Recommend to check A1c level 2. Monitor PO intake, wt, labs and skin integrity 3. F/U as high risk in 2-3 days, 04/06-04/07 Expected Outcomes/Goals Expected Outcomes/Goals 1. PO intake to meet at least 75% of nutritional needs. 2. Wt stability, skin to remain intact, labs to approach WNL.
[2018-04-07] MEDS: Meropenem 1 GM in Sodium Chloride 0.9% 100 ML IV SCH ×2 (07:04→13:51)
[2018-04-07] MEDS: INSULIN ASPART SLIDING SCALE 100 UNITS/ML UNIT SUBQ SCH ×3 (08:27→17:17)
[2018-04-07] MEDS: Calcium Carb/Vit D 500 mg/200 U Tab PO SCH (08:30)
[2018-04-07] MEDS: Pantoprazole 40 mg EC Tab PO SCH ×2 (08:30→16:49)
[2018-04-07] MEDS: Lactobacillus Rhamnosus GG 15 Billion CFU CAP.SPRINK PO SCH (08:30)
--- NOTE | 2018-04-07 08:47 | General Progress Note ---
Subjective - Review of Systems Service Date: 04/07/18 Events since last encounter: continue local wound care and IV antibiotics for osteo Objective - Results Result Diagrams: 04/06/18 13:20 04/06/18 13:20 Recent Labs: Laboratory Last Values WBC 11.1 Th/cmm (4.8-10.8) H 04/06/18 13:20 RBC 4.25 Mil/cmm (4.30-5.70) L 04/06/18 13:20 Hgb 12.4 gm/dL (12-16) 04/06/18 13:20 Hct 37.2 % (41.0-60) L 04/06/18 13:20 MCV 87.5 fl (80-99) 04/06/18 13:20 MCH 29.2 pg (26.0-30.0) 04/06/18 13:20 MCHC Differential 33.4 pg (28.0-36.0) 04/06/18 13:20 RDW 12.3 % (11.5-20.0) 04/06/18 13:20 Plt Count 404 Th/cmm (150-400) H 04/06/18 13:20 MPV 7.3 fl 04/06/18 13:20 Neutrophils % 69.4 % (40.0-80.0) 04/06/18 13:20 Lymphocytes % 24.7 % (20.0-50.0) 04/06/18 13:20 Monocytes % 4.3 % (2.0-10.0) 04/06/18 13:20 Eosinophils % 1.0 % (0.0-5.0) 04/06/18 13:20 Basophils % 0.6 % (0.0-2.0) 04/06/18 13:20 ESR 49 mm/hr (0-20) H 04/05/18 05:50 PT 11.1 SECONDS (9.5-11.5) 04/06/18 13:20 INR 1.07 (0.5-1.4) 04/06/18 13:20 PTT (Actin FS) 25.9 SECONDS (26.0-38.0) L 04/06/18 13:20 Sodium 137 mEq/L (136-145) 04/06/18 13:20 Potassium 3.9 mEq/L (3.5-5.1) 04/06/18 13:20 Chloride 104 mEq/L (98-107) 04/06/18 13:20 Carbon Dioxide 25.4 mEq/L (21.0-31.0) 04/06/18 13:20 Anion Gap 11.5 (7.0-16.0) 04/06/18 13:20 BUN 8 mg/dL (7-25) 04/06/18 13:20 Creatinine 0.7 mg/dL (0.7-1.3) 04/06/18 13:20 Est GFR ( Amer) > 60.0 ml/min (>90) 04/06/18 13:20 Est GFR (Non-Af Amer) > 60.0 ml/min 04/06/18 13:20 BUN/Creatinine Ratio 11.4 04/06/18 13:20 Glucose 167 mg/dL (70-105) H 04/06/18 13:20 POC Glucose 157 MG/DL (70 - 105) H 04/07/18 07:07 Whole Bld Lactic Acid 1.32 mmol/L (0.60-1.99) 04/04/18 00:15 Calcium 9.3 mg/dL (8.6-10.3) 04/06/18 13:20 Total Bilirubin 0.5 mg/dL (0.3-1.0) 04/06/18 13:20 AST 11 U/L (13-39) L 04/06/18 13:20 ALT 9 U/L (7-52) 04/06/18 13:20 Alkaline Phosphatase 61 U/L (34-104) 04/06/18 13:20 C-Reactive Protein < 0.2 mg/dL (0.0-0.9) 04/05/18 05:50 Total Protein 6.5 gm/dL (6.0-8.3) 04/06/18 13:20 Albumin 3.6 gm/dL (4.2-5.5) L 04/06/18 13:20 Globulin 2.9 gm/dL 04/06/18 13:20 Albumin/Globulin Ratio 1.2 (1.0-1.8) 04/06/18 13:20 Urine Source CLEAN C 04/06/18 16:30 Urine Color YELLOW 04/06/18 16:30 Urine Clarity CLEAR (CLEAR) 04/06/18 16:30 Urine pH 6.0 (4.6 - 8.0) 04/06/18 16:30 Ur Specific [place] 1.015 (1.005-1.030) 04/06/18 16:30 Urine Protein NEGATIVE mg/dL (NEGATIVE) 04/06/18 16:30 Urine Glucose (UA) NEGATIVE mg/dL (NEGATIVE) 04/06/18 16:30 Urine Ketones 15 mg/dL (NEGATIVE) H 04/06/18 16:30 Urine Blood NEGATIVE (NEGATIVE) 04/06/18 16:30 Urine Nitrate NEGATIVE (NEGATIVE) 04/06/18 16:30 Urine Bilirubin NEGATIVE (NEGATIVE) 04/06/18 16:30 Urine Urobilinogen 0.2 E.U./dL (0.2 - 1.0) 04/06/18 16:30 Ur Leukocyte Esterase NEGATIVE (NEGATIVE) 04/06/18 16:30 Urine RBC 0-2 /hpf (0-5) H 04/06/18 16:30 Urine WBC 0-2 /hpf (0-5) 04/06/18 16:30 Ur Epithelial Cells FEW /lpf (FEW) 04/06/18 16:30 Urine Bacteria OCCASIONAL /hpf (NONE SEEN) 04/06/18 16:30 Urine Mucus FEW /lpf (FEW) 04/06/18 16:30 Vancomycin Trough 14.0 ug/mL (5-10) H 04/05/18 14:00 - Physical Exam Vitals and I&O: Vital Signs Temp 98.2 F 04/07/18 00:00 Pulse 86 04/07/18 00:00 Resp 17 04/07/18 00:00 BP 113/75 04/07/18 00:00 Pulse Ox 97 04/07/18 00:00 Intake & Output 04/06/18 04/07/18 04/07/18 18:59 06:59 18:59 Intake Total 1000 200 Output Total 550 Balance 1000 -350 Weight (lbs) 81.647 kg Intake: Intake, IV Amount 1000 200 Meropenem 1 gm In Sodium 200 Chloride 0.9% 100 ml @ 100 mls/hr IV Q8H [facility] Rx# :[id number] Sodium Chloride 0.45% 1, 1000 000 ml @ 75 mls/hr IV . [id number] [facility] Rx#:[id number] Output: Urine 550 Other: Weight Source Bedscale Active Medications: Current Medications Acetaminophen (Tylenol) 650 mg PO Q4H PRN PRN Reason: Pain or Fever >101 Stop: 06/03/18 08:38 Acetaminophen (Tylenol Extra Strength) 1,000 mg PO Q4H PRN PRN Reason: Pain (Severe) Stop: 06/03/18 08:38 Bisacodyl (Dulcolax 10 Mg Supp) 10 mg RC DAILY PRN PRN Reason: Constipation Stop: 06/03/18 08:38 Calcium/Vitamin D (Oscal W/Vitamin D) 1 tab PO DAILY [facility] Stop: 06/03/18 08:59 Last Admin: 04/07/18 08:30 Dose: 1 tab Docusate Sodium (Colace) 100 mg PO BID [facility] Stop: 06/03/18 08:59 Last Admin: 04/07/18 08:30 Dose: 100 mg Donepezil HCl (Aricept) 10 mg PO HS [facility] Stop: 06/03/18 20:59 Last Admin: 04/06/18 20:31 Dose: 10 mg Heparin Sodium (Porcine) (Heparin) 5,000 units SUBQ Q12HR [facility] Stop: 06/03/18 20:59 Last Admin: 04/07/18 08:27 Dose: 5,000 units Sodium Chloride (Nacl 0.45%) 1,000 mls @ 75 mls/hr IV .[id number] [facility] Stop: 06/03/18 01:41 Last Admin: 04/06/18 22:24 Dose: 75 mls/hr Meropenem 1 gm/ Sodium (Chloride) 100 mls @ 100 mls/hr IV Q8H [facility] Stop: 06/03/18 13:59 Last Admin: 04/07/18 07:04 Dose: 100 mls/hr Insulin Aspart (Novolog Insulin Sliding Scale) 0 units SUBQ ACHS [facility]; Protocol Stop: 06/03/18 11:29 Last Admin: 04/07/18 08:27 Dose: 2 units Lactobacillus Rhamnosus (Culturelle 15b) 1 each PO DAILY [facility] Stop: 06/03/18 13:59 Last Admin: 04/07/18 08:30 Dose: 1 each Lorazepam (Ativan) 0.5 mg PO Q6HR PRN; Protocol PRN Reason: Anxiety Stop: 06/04/18 06:26 Last Admin: 04/07/18 01:16 Dose: 0.5 mg Magnesium Hydroxide (Milk Of Magnesia) 30 ml PO HS PRN PRN Reason: Constipation Stop: 06/03/18 20:59 Megestrol Acetate (Megace) 400 mg PO DAILY [facility] Stop: 06/03/18 08:59 Last Admin: 04/07/18 08:30 Dose: 400 mg Metformin HCl (Glucophage) 500 mg PO BIDWM [facility] Stop: 06/03/18 08:59 Last Admin: 04/07/18 08:30 Dose: 500 mg Miscellaneous (Vte Chemical Prophylaxis Screen/ Admission) 1 ea PRN PRN PRN Reason: PROTOCOL Stop: 06/03/18 12:05 Miscellaneous (Probiotic Screen) 1 ea PRN PRN PRN Reason: PROTOCOL Stop: 06/03/18 12:58 Ondansetron HCl (Zofran) 4 mg IV Q8H PRN PRN Reason: Nausea / Vomiting Stop: 06/04/18 06:24 Pantoprazole Sodium (Protonix) 40 mg PO BIDAC [facility] Stop: 06/03/18 10:59 Last Admin: 04/07/18 08:30 Dose: 40 mg Simvastatin (Zocor) 10 mg PO HS [facility]; Protocol Stop: 06/03/18 20:59 Last Admin: 04/06/18 20:29 Dose: 10 mg Sodium Phosphate (Fleet Enema) 135 ml RC Q48H PRN PRN Reason: Constipation Stop: 06/03/18 08:38 Zinc Sulfate (Zinc Sulfate) 220 mg PO DAILY [facility] Stop: 06/03/18 10:59 Last Admin: 04/07/18 08:30 Dose: 220 mg General: No acute distress HEENT: Atraumatic Cardiovascular: Regular rate, Normal S1 Assessment/Plan - Problem List Patient Problems: All Active Problems Functional paraparesis (Acute) F44.4 GERD (gastroesophageal reflux disease) (Acute) K21.9 H/O psychosis (Acute) Z86.59 Hyperlipidemia (Acute) E78.5 Nutritional Asmnt/Malnutr-PDOC - Dietary Evaluation Malnutrition Findings (Please click <Entered> for more info): Nutritional Asmnt/Malnutrition Start: 04/04/18 16: 27 Text: Status: Complete Freq: Protocol: Document 04/04/18 16:30 LCHENG (Rec: 04/04/18 16:39 [facility] [id number]) Nutritional Asmnt/Malnutrition Patient General Information Nutritional Screening High Risk Consult Diagnosis ESBL of foot ulcers Pertinent Medical Hx/Surgical Hx HTN, DM, CAD, dyslipidemia, PUD/GERd, arthrisi, psychosis Subjective Information Consult received for elevated blood sugar. Pt seen lying in bed at time of visit. Pt stated good appetite. Not able to get more nutrition infomation from pt and offer diabetic education d/t pt is very confused. Per EMR, PO intake 50-75%. Current Diet Order/ Nutrition Support regular Pertinent Medications oscal w/vit D3, colace, novolog, culturelle, megace, glucophage, protonix, nacl 0. 45%, vancomycin, zinc Pertinent Labs 04/04 Na 135, K 3.4- 3.7, Glucose 221-250, POC 216-251 Nutritional Hx/Data Height 1.7 m Height (Calculated Centimeters) 170.2 Current Weight (lbs) 79.379 kg Weight (Calculated Kilograms) 79.4 Weight (Calculated Grams) 45078.7 [place] Body Weight 148 Body Mass Index (BMI) 27.3 Weight Status Overweight GI Symptoms GI Symptoms None Last BM not indicated Difficult in: None Skin Integrity/Comment: pressure ulcer to left toe and left foot Current %PO Fair (50-74%) Estimated Nutritional Goals Calories/Kcals/Kg 25-30 Kcals Calculated 1072-5321 Protein g/k.2 Protein Calculated 74 Fluid: ml 1675-1860ml (1ml/kcal) Nutritional Problem 1. Problem Problem alteread nutrition relatedl abs Etiology hx of DM Signs/Symptoms: Glucose 221-250, POC 216-251 Malnutrition Alert Is there a minimum of two criteria No selected? Query Text:Check all the applicable criteria. A minimum of two criteria are recommended for diagnosis of either severe or non-severe malnutrition. Malnutrition Related to Morbid Obesity Malnutrition related to morbid obesity No Intervention/Recommendation Comments 1. Recommend CCHO 60gm diet d/ t elevated blood sugar and hx of DM. Recommend to check A1c level 2. Monitor PO intake, wt, labs and skin integrity 3. F/U as high risk in 2-3 days, 04/06-04/07 Expected Outcomes/Goals Expected Outcomes/Goals 1. PO intake to meet at least 75% of nutritional needs. 2. Wt stability, skin to remain intact, labs to approach WNL.
--- NOTE | 2018-04-07 10:14 | General Progress Note ---
Subjective - Review of Systems Events since last encounter: patient tolerating antibiotics well Objective - Results Result Diagrams: 04/06/18 13:20 04/06/18 13:20 Recent Labs: Laboratory Last Values WBC 11.1 Th/cmm (4.8-10.8) H 04/06/18 13:20 RBC 4.25 Mil/cmm (4.30-5.70) L 04/06/18 13:20 Hgb 12.4 gm/dL (12-16) 04/06/18 13:20 Hct 37.2 % (41.0-60) L 04/06/18 13:20 MCV 87.5 fl (80-99) 04/06/18 13:20 MCH 29.2 pg (26.0-30.0) 04/06/18 13:20 MCHC Differential 33.4 pg (28.0-36.0) 04/06/18 13:20 RDW 12.3 % (11.5-20.0) 04/06/18 13:20 Plt Count 404 Th/cmm (150-400) H 04/06/18 13:20 MPV 7.3 fl 04/06/18 13:20 Neutrophils % 69.4 % (40.0-80.0) 04/06/18 13:20 Lymphocytes % 24.7 % (20.0-50.0) 04/06/18 13:20 Monocytes % 4.3 % (2.0-10.0) 04/06/18 13:20 Eosinophils % 1.0 % (0.0-5.0) 04/06/18 13:20 Basophils % 0.6 % (0.0-2.0) 04/06/18 13:20 ESR 49 mm/hr (0-20) H 04/05/18 05:50 PT 11.1 SECONDS (9.5-11.5) 04/06/18 13:20 INR 1.07 (0.5-1.4) 04/06/18 13:20 PTT (Actin FS) 25.9 SECONDS (26.0-38.0) L 04/06/18 13:20 Sodium 137 mEq/L (136-145) 04/06/18 13:20 Potassium 3.9 mEq/L (3.5-5.1) 04/06/18 13:20 Chloride 104 mEq/L (98-107) 04/06/18 13:20 Carbon Dioxide 25.4 mEq/L (21.0-31.0) 04/06/18 13:20 Anion Gap 11.5 (7.0-16.0) 04/06/18 13:20 BUN 8 mg/dL (7-25) 04/06/18 13:20 Creatinine 0.7 mg/dL (0.7-1.3) 04/06/18 13:20 Est GFR ( Amer) > 60.0 ml/min (>90) 04/06/18 13:20 Est GFR (Non-Af Amer) > 60.0 ml/min 04/06/18 13:20 BUN/Creatinine Ratio 11.4 04/06/18 13:20 Glucose 167 mg/dL (70-105) H 04/06/18 13:20 POC Glucose 157 MG/DL (70 - 105) H 04/07/18 07:07 Whole Bld Lactic Acid 1.32 mmol/L (0.60-1.99) 04/04/18 00:15 Calcium 9.3 mg/dL (8.6-10.3) 04/06/18 13:20 Total Bilirubin 0.5 mg/dL (0.3-1.0) 04/06/18 13:20 AST 11 U/L (13-39) L 04/06/18 13:20 ALT 9 U/L (7-52) 04/06/18 13:20 Alkaline Phosphatase 61 U/L (34-104) 04/06/18 13:20 C-Reactive Protein < 0.2 mg/dL (0.0-0.9) 04/05/18 05:50 Total Protein 6.5 gm/dL (6.0-8.3) 04/06/18 13:20 Albumin 3.6 gm/dL (4.2-5.5) L 04/06/18 13:20 Globulin 2.9 gm/dL 04/06/18 13:20 Albumin/Globulin Ratio 1.2 (1.0-1.8) 04/06/18 13:20 Urine Source CLEAN C 04/06/18 16:30 Urine Color YELLOW 04/06/18 16:30 Urine Clarity CLEAR (CLEAR) 04/06/18 16:30 Urine pH 6.0 (4.6 - 8.0) 04/06/18 16:30 Ur Specific [place] 1.015 (1.005-1.030) 04/06/18 16:30 Urine Protein NEGATIVE mg/dL (NEGATIVE) 04/06/18 16:30 Urine Glucose (UA) NEGATIVE mg/dL (NEGATIVE) 04/06/18 16:30 Urine Ketones 15 mg/dL (NEGATIVE) H 04/06/18 16:30 Urine Blood NEGATIVE (NEGATIVE) 04/06/18 16:30 Urine Nitrate NEGATIVE (NEGATIVE) 04/06/18 16:30 Urine Bilirubin NEGATIVE (NEGATIVE) 04/06/18 16:30 Urine Urobilinogen 0.2 E.U./dL (0.2 - 1.0) 04/06/18 16:30 Ur Leukocyte Esterase NEGATIVE (NEGATIVE) 04/06/18 16:30 Urine RBC 0-2 /hpf (0-5) H 04/06/18 16:30 Urine WBC 0-2 /hpf (0-5) 04/06/18 16:30 Ur Epithelial Cells FEW /lpf (FEW) 04/06/18 16:30 Urine Bacteria OCCASIONAL /hpf (NONE SEEN) 04/06/18 16:30 Urine Mucus FEW /lpf (FEW) 04/06/18 16:30 Vancomycin Trough 14.0 ug/mL (5-10) H 04/05/18 14:00 - Physical Exam Vitals and I&O: Vital Signs Temp 98.2 F 04/07/18 00:00 Pulse 86 04/07/18 00:00 Resp 17 04/07/18 00:00 BP 113/75 04/07/18 00:00 Pulse Ox 97 04/07/18 00:00 Intake & Output 04/06/18 04/07/18 04/07/18 18:59 06:59 18:59 Intake Total 1000 200 Output Total 550 Balance 1000 -350 Weight (lbs) 81.647 kg Intake: Intake, IV Amount 1000 200 Meropenem 1 gm In Sodium 200 Chloride 0.9% 100 ml @ 100 mls/hr IV Q8H [facility] Rx# :[id number] Sodium Chloride 0.45% 1, 1000 000 ml @ 75 mls/hr IV . [id number] [facility] Rx#:[id number] Output: Urine 550 Other: Weight Source Bedscale Active Medications: Current Medications Acetaminophen (Tylenol) 650 mg PO Q4H PRN PRN Reason: Pain or Fever >101 Stop: 06/03/18 08:38 Acetaminophen (Tylenol Extra Strength) 1,000 mg PO Q4H PRN PRN Reason: Pain (Severe) Stop: 06/03/18 08:38 Bisacodyl (Dulcolax 10 Mg Supp) 10 mg RC DAILY PRN PRN Reason: Constipation Stop: 06/03/18 08:38 Calcium/Vitamin D (Oscal W/Vitamin D) 1 tab PO DAILY [facility] Stop: 06/03/18 08:59 Last Admin: 04/07/18 08:30 Dose: 1 tab Docusate Sodium (Colace) 100 mg PO BID [facility] Stop: 06/03/18 08:59 Last Admin: 04/07/18 08:30 Dose: 100 mg Donepezil HCl (Aricept) 10 mg PO HS [facility] Stop: 06/03/18 20:59 Last Admin: 04/06/18 20:31 Dose: 10 mg Heparin Sodium (Porcine) (Heparin) 5,000 units SUBQ Q12HR [facility] Stop: 06/03/18 20:59 Last Admin: 04/07/18 08:27 Dose: 5,000 units Sodium Chloride (Nacl 0.45%) 1,000 mls @ 75 mls/hr IV .[id number] [facility] Stop: 06/03/18 01:41 Last Admin: 04/06/18 22:24 Dose: 75 mls/hr Meropenem 1 gm/ Sodium (Chloride) 100 mls @ 100 mls/hr IV Q8H [facility] Stop: 06/03/18 13:59 Last Admin: 04/07/18 07:04 Dose: 100 mls/hr Insulin Aspart (Novolog Insulin Sliding Scale) 0 units SUBQ ACHS [facility]; Protocol Stop: 06/03/18 11:29 Last Admin: 04/07/18 08:27 Dose: 2 units Lactobacillus Rhamnosus (Culturelle 15b) 1 each PO DAILY [facility] Stop: 06/03/18 13:59 Last Admin: 04/07/18 08:30 Dose: 1 each Lorazepam (Ativan) 0.5 mg PO Q6HR PRN; Protocol PRN Reason: Anxiety Stop: 06/04/18 06:26 Last Admin: 04/07/18 01:16 Dose: 0.5 mg Magnesium Hydroxide (Milk Of Magnesia) 30 ml PO HS PRN PRN Reason: Constipation Stop: 06/03/18 20:59 Megestrol Acetate (Megace) 400 mg PO DAILY [facility] Stop: 06/03/18 08:59 Last Admin: 04/07/18 08:30 Dose: 400 mg Metformin HCl (Glucophage) 500 mg PO BIDWM [facility] Stop: 06/03/18 08:59 Last Admin: 04/07/18 08:30 Dose: 500 mg Miscellaneous (Vte Chemical Prophylaxis Screen/ Admission) 1 ea PRN PRN PRN Reason: PROTOCOL Stop: 06/03/18 12:05 Miscellaneous (Probiotic Screen) 1 ea PRN PRN PRN Reason: PROTOCOL Stop: 06/03/18 12:58 Ondansetron HCl (Zofran) 4 mg IV Q8H PRN PRN Reason: Nausea / Vomiting Stop: 06/04/18 06:24 Pantoprazole Sodium (Protonix) 40 mg PO BIDAC [facility] Stop: 06/03/18 10:59 Last Admin: 04/07/18 08:30 Dose: 40 mg Simvastatin (Zocor) 10 mg PO HS [facility]IN; Protocol Stop: 06/03/18 20:59 Last Admin: 04/06/18 20:29 Dose: 10 mg Sodium Phosphate (Fleet Enema) 135 ml RC Q48H PRN PRN Reason: Constipation Stop: 06/03/18 08:38 Zinc Sulfate (Zinc Sulfate) 220 mg PO DAILY [facility] Stop: 06/03/18 10:59 Last Admin: 04/07/18 08:30 Dose: 220 mg General: No acute distress HEENT: Atraumatic Cardiovascular: Regular rate, Normal S1 Assessment/Plan - Problem List Patient Problems: All Active Problems Functional paraparesis (Acute) F44.4 GERD (gastroesophageal reflux disease) (Acute) K21.9 H/O psychosis (Acute) Z86.59 Hyperlipidemia (Acute) E78.5 - Plan Plan: as per order sheet Nutritional Asmnt/Malnutr-PDOC - Dietary Evaluation Malnutrition Findings (Please click <Entered> for more info): Nutritional Asmnt/Malnutrition Start: 04/04/18 16: 27 Text: Status: Complete Freq: Protocol: Document 04/04/18 16:30 [facility] (Rec: 04/04/18 16:39 [facility] [id number]) Nutritional Asmnt/Malnutrition Patient General Information Nutritional Screening High Risk Consult Diagnosis ESBL of foot ulcers Pertinent Medical Hx/Surgical Hx HTN, DM, CAD, dyslipidemia, PUD/GERd, arthrisi, psychosis Subjective Information Consult received for elevated blood sugar. Pt seen lying in bed at time of visit. Pt stated good appetite. Not able to get more nutrition infomation from pt and offer diabetic education d/t pt is very confused. Per EMR, PO intake 50-75%. Current Diet Order/ Nutrition Support regular Pertinent Medications oscal w/vit D3, colace, novolog, culturelle, megace, glucophage, protonix, nacl 0. 45%, vancomycin, zinc Pertinent Labs 04/04 Na 135, K 3.4- 3.7, Glucose 221-250, POC 216-251 Nutritional Hx/Data Height 1.7 m Height (Calculated Centimeters) 170.2 Current Weight (lbs) 79.379 kg Weight (Calculated Kilograms) 79.4 Weight (Calculated Grams) 24284.7 [place] Body Weight 148 Body Mass Index (BMI) 27.3 Weight Status Overweight GI Symptoms GI Symptoms None Last BM not indicated Difficult in: None Skin Integrity/Comment: pressure ulcer to left toe and left foot Current %PO Fair (50-74%) Estimated Nutritional Goals Calories/Kcals/Kg 25-30 Kcals Calculated 0099-7288 Protein g/k.2 Protein Calculated 74 Fluid: ml 1675-1860ml (1ml/kcal) Nutritional Problem 1. Problem Problem alteread nutrition relatedl abs Etiology hx of DM Signs/Symptoms: Glucose 221-250, POC 216-251 Malnutrition Alert Is there a minimum of two criteria No selected? Query Text:Check all the applicable criteria. A minimum of two criteria are recommended for diagnosis of either severe or non-severe malnutrition. Malnutrition Related to Morbid Obesity Malnutrition related to morbid obesity No Intervention/Recommendation Comments 1. Recommend CCHO 60gm diet d/ t elevated blood sugar and hx of DM. Recommend to check A1c level 2. Monitor PO intake, wt, labs and skin integrity 3. F/U as high risk in 2-3 days, 04/06-04/07 Expected Outcomes/Goals Expected Outcomes/Goals 1. PO intake to meet at least 75% of nutritional needs. 2. Wt stability, skin to remain intact, labs to approach WNL.
--- NOTE | 2018-04-18 22:58 | Discharge Summary ---
DATE OF DISCHARGE: 04/07/2018 HOSPITAL COURSE: This patient was admitted to [facility] on 04/04/2018, was discharged to ____ on 018, the patient came from [place]. The patient is known to have underlying neuropsychosis, apparently has acute ulcerations, old ____ disease, functional paraplegia, history of diabetes, hypertension, and hyperlipidemia. The patient was given IV antibiotics, the patient improved, and the patient was in stable condition. Was discharged to ____ on the following: The patient with IV antibiotic and a final diagnosis of improving ulceration of infected pressure ulcers, history of hypertension, diabetes, history of coronary artery disease, hyperlipidemia and history of psychosis and functional paraplegia. JOB# [id number]
== END 2018-04-07 19:10 | DRG 623 ==
LOC: ER 23:30 → MSI 04-04 00:55
PROVIDERS: ADMIT Internal Medicine; ATTEND Internal Medicine
PROC: 0JBR0ZZ Excision of Left Foot Subcutaneous Tissue and Fascia, Open Approach (ICD-10-PCS; principal; 2018-04-06)
PROC: 0JBR0ZZ Excision of Left Foot Subcutaneous Tissue and Fascia, Open Approach (ICD-10-PCS; 2018-04-06)
PROC: 3E0T3BZ Introduction of Anesthetic Agent into Peripheral Nerves and Plexi, Percutaneous Approach (ICD-10-PCS; 2018-04-06)
PROC: 02HV33Z Insertion of Infusion Device into Superior Vena Cava, Percutaneous Approach (ICD-10-PCS; 2018-04-06)
DX: E11.69 Type 2 diabetes mellitus with other specified complication (principal); G82.20 Paraplegia, unspecified; L03.116 Cellulitis of left lower limb; L97.429 Non-pressure chronic ulcer of left heel and midfoot with unspecified severity; M86.8X7 Other osteomyelitis, ankle and foot; E11.610 Type 2 diabetes mellitus with diabetic neuropathic arthropathy; E11.621 Type 2 diabetes mellitus with foot ulcer; I10 Essential (primary) hypertension; L89.892 Pressure ulcer of other site, stage 2; I25.10 Atherosclerotic heart disease of native coronary artery without angina pectoris; E78.5 Hyperlipidemia, unspecified; K21.9 Gastro-esophageal reflux disease without esophagitis; M19.90 Unspecified osteoarthritis, unspecified site; B96.20 Unspecified Escherichia coli [E. coli] as the cause of diseases classified elsewhere; B95.62 Methicillin resistant Staphylococcus aureus infection as the cause of diseases classified elsewhere; L97.529 Non-pressure chronic ulcer of other part of left foot with unspecified severity; Z88.8 Allergy status to other drugs, medicaments and biological substances; Z16.12 Extended spectrum beta lactamase (ESBL) resistance; Z79.4 Long term (current) use of insulin
CPT/HCPCS: 36415-UA; 71045-TC; 73620-TC-LT; 78315-TC; 80048-TC; 80053-TC; 80202-TC; 81001-TC; 82948-90; 83036-90; 83605; 85025-TC; 85610-TC; 85652-TC; 86141-TC; 93926-LT-TC; A9503; J1644; J1815; J2185; J2543; J2704; J3370; J7040; V2790; Z7610

== ENCOUNTER 2018-10-30 16:29 | Emergency (ER) | payer MEDICARE, MEDICAID ==
--- NOTE | 2018-10-30 17:29 | ED Physician Chart ---
ED Chief Complaint/HPI - Patient Information Date Seen:: 10/30/18 Time Seen:: 17:11 Chief Complaint:: cough congestions History of Present Illness:: 58 yr male with cough and productive sputum for 3 days pt with congestion Allergies:: Allergies Allergy/AdvReac Type Severity Reaction Status Date / Time ciprofloxacin [From Cipro] Allergy Verified 10/30/18 16:49 lisinopril Allergy Verified 04/03/18 23:51 quetiapine [From Seroquel] Allergy Verified 10/30/18 16:49 Vitals:: Vital Signs - 8 hr 10/30/18 16:50 Temp 98.2 F HR 96 RR 19 BP 130/83 O2 Sat % 99 ED Review of Systems - Review of Systems General/Constitutional: No fever Skin: No skin lesions Eyes: No loss of vision ENT: No earache Neck: No neck pain Cardio Vascular: No chest pain Pulmonary: Sputum, No wheezing GI: No vomiting G/U: No dysuria Endocrine: No polyuria Neurological: No syncope ED Past Medical History - Past Medical History Past Medical History: Other (schizophrenia psychosis tia anemia dementia kidney failure hypertension diabetes gen weakness) Family Medical History - Family Member Mother History Unknown: Yes Ethnicity: Unknown Living Status: Unknown Hx Family Cancer: No Hx Family Coronary Artery Disease: No Hx Family Congestive Heart Failure: No Hx Family Hypertension: No Hx Family Stroke: No Hx Family Diabetes: No Hx Family Seizures: No Hx Family Dementia: No Hx Family AIDS: No Hx Family HIV: No Hx Family COPD: No Hx Family Hepatitis: No Hx Family Psychiatric Problems: No Hx Family Tuberculosis: No Father Ethnicity: Non- Living Status: Hx Family Coronary Artery Disease: Yes ED Physical Exam - Physical Examination Head: Atraumatic Eyes: Lids, conjuctiva normal Skin: Nl inspection ENMT: External ears, nose nl Neck: Nontender Respiratory: Nl effort/Exclusion Cardio Vascular: RRR GI: No tenderness/rebounding/guarding : No CVA tenderness Extremities: No tenderness or effusion ED Assessment - Assessment General Assessment: cough congestion r/o pneumonia ED Septic Shock - . Is Septic Shock (SBP<90, OR Lactate>4 mmol\L) present?: No - <6hrs of presentation: Vital Signs: Vital Signs - 8 hr 10/30/18 16:50 Temp 98.2 F HR 96 RR 19 BP 130/83 O2 Sat % 99 ED Reassessment (Disposition) - Reassessment Reassessment:: cough congestion r/o pneumonia
[2018-10-30 18:16] LABS: % BASOPHILS 0.4 % (0.0-2.0); % EOSINOPHILS 2.4 % (0.0-5.0); % LYMPHOCYTES 25.7 % (20.0-50.0); % MONOCYTES 10.1 % (2.0-10.0); % NEUTROPHILS 61.4 % (40.0-80.0); EOSINOPHILE ABSOLUTE 0.2 Th/cmm (0.1-0.4); HEMATOCRIT 30.6 % (41.0-60); HEMOGLOBIN 10.1 gm/dL (12-16); LYMPHOCYTE ABSOLUTE 2.5 Th/cmm (1.5-3.0); MEAN CELL VOLUME 86.3 fl (80-99); MEAN CORPUSCULAR HEMOGLOBIN 28.7 pg (26.0-30.0); MEAN CORPUSCULAR HGB CONC 33.2 pg (28.0-36.0); MEAN PLATELET VOLUME 6.6 fl; NEUTROPHILE ABSOLUTE 6.2 Th/cmm (1.8-8.0); PLATELET COUNT 415 Th/cmm (150-400); RED BLOOD COUNT 3.54 Mil/cmm (4.30-5.70); RED CELL DISTRIBUTION WIDTH 12.3 % (11.5-20.0); WHITE BLOOD COUNT 9.9 Th/cmm (4.8-10.8)
[2018-10-30 18:25] LABS: ALB/GLOB RATIO 1.1 (1.0-1.8); ALBUMIN 3.7 gm/dL (4.2-5.5); ALKALINE PHOSPHATASE 75 U/L (34-104); ANION GAP 14.8 (7.0-16.0); BILIRUBIN,TOTAL 0.3 mg/dL (0.3-1.0); BUN - UREA NITROGEN 23 mg/dL (7-25); CALCIUM SERUM 9.6 mg/dL (8.6-10.3); CHLORIDE 106 mEq/L (98-107); CREATININE - SERUM 1.3 mg/dL (0.7-1.3); GFR AFRICAN-AMERICAN > 60.0 ml/min (>90); GFR NON AFRICAN-AMERICAN > 60.0 ml/min; GLUCOSE 112 mg/dL (70-105); POTASSIUM SERUM 3.8 mEq/L (3.5-5.1); SGOT 10 U/L (13-39); SGPT/ALT 10 U/L (7-52); SODIUM SERUM 139 mEq/L (136-145); TOTAL PROTEIN,SERUM 7.2 gm/dL (6.0-8.3)
--- NOTE | 2018-10-31 08:07 | Diagnostic Imaging Report ---
Portable chest x-ray History: Cough Allowing for portable technique the heart size is normal. No focal pulmonary parenchymal processes. No hilar or mediastinal abnormalities. Impression: No acute abnormalities.
== END 2018-10-30 19:40 ==
LOC: ER 16:29
DX: J40 Bronchitis, not specified as acute or chronic (principal); R05 Cough; Z88.1 Allergy status to other antibiotic agents; Z88.8 Allergy status to other drugs, medicaments and biological substances
CPT/HCPCS: 99284; 96372; 71045; 36415; 85025; 80053; 87040 ×2; J0696; J2001